=== PATIENT | female | born 1985 | race Caucasian/White ===

== ENCOUNTER 2020-03-10 10:54 | Outpatient (CLI) | payer OTHER, SELFPAY ==
--- NOTE | 2020-04-04 14:58 | PCAUD ---
Charges for the 03/10/2020 appointment were entered on 04/04/2020 due to an oversight at the time of the appointment. -Suzanna Govea, CCC-A
== END 2020-04-04 14:51 | disposition home or self-care (01) ==
PROVIDERS: PCP Physician Assistant; Visit Provider Physician Assistant
DX: H91.90 Unspecified hearing loss, unspecified ear (principal)
CPT/HCPCS: 92557; 92567

== ENCOUNTER 2020-04-03 09:26 | Outpatient (CLI) | payer OTHER, SELFPAY ==
--- NOTE | 2020-04-08 16:40 | WPDHOLTEREM ---
Holter/Event Monitor Holter/Event Monitor Date of procedure: 04/03/20 Procedure Type: 24 hour holter monitor Indications: Palpitations Conclusion: 1. 24 hour holter monitor on 04/03/20. 2. Underlying rhythm is sinus rhythm. HR range 43-133 bpm; average HR 69 bpm. 3. There are 166 premature supraventricular complexes and 7 supraventricular couplets. No supraventricular tachycardia. 4. There are 13 premature ventricular complexes and 1 ventricular couplet. No ventricular tachycardia. 5. No sinoatrial or atrioventricular blocks. No significant pauses greater than 2 seconds. 6. Patient reports symptoms of chest tightness/ache, flutter, palpitations which demonstrate sinus rhythm, HR range 55-101 bpm.
== END 2020-04-03 09:27 | disposition home or self-care (01) ==
LOC: ANHCARD 09:28
PROVIDERS: Family Provider Family Medicine; PCP Internal Medicine; Visit Provider Physician Assistant
DX: R00.2 Palpitations (principal)
CPT/HCPCS: 93225; 93226

== ENCOUNTER 2021-11-04 13:20 | Outpatient (RCR) | payer OTHER, SELFPAY ==
[2021-11-04 14:06] VITALS: BP 112/68; PULSE 89
== END 2021-12-09 09:21 | disposition home or self-care (01) ==
LOC: ANHOBOP 13:20
PROVIDERS: PCP Internal Medicine; Visit Provider Obstetrics & Gynecology
DX: O09.293 Supervision of pregnancy with other poor reproductive or obstetric history, third trimester (principal); Z3A.34 34 weeks gestation of pregnancy
CPT/HCPCS: 59025; 96372; J0702

== ENCOUNTER 2021-11-05 13:53 | Outpatient (RCR) | payer OTHER, SELFPAY ==
[2021-11-04] MEDS: BETAMETHASONE SOD PHOS/ACETATE 30 MG/5 ML VIAL 12 MG IM (14:10)
[2021-11-05] MEDS: BETAMETHASONE SOD PHOS/ACETATE 30 MG/5 ML VIAL 12 MG IM (13:58)
== END 2021-11-05 14:10 | disposition home or self-care (01) ==
LOC: ANHOBOP 13:53
PROVIDERS: PCP Internal Medicine; Visit Provider Obstetrics & Gynecology
DX: O36.8990 Maternal care for other specified fetal problems, unspecified trimester, not applicable or unspecified (principal); Z3A.00 Weeks of gestation of pregnancy not specified
CPT/HCPCS: 96372; J0702

== ENCOUNTER 2021-11-08 10:33 | Inpatient (IN) | payer OTHER, SELFPAY ==
[2021-11-08] VITALS (36 sets, daily range): BP systolic 106–154; BP diastolic 55–113; PULSE 68–104; RESP 18; TEMP 36.1–37.1; O2SAT 87–100; BMI 39.7
[2021-11-08 11:08] LABS: Basophils Percent Auto 0.3 % (0.2-1.2); Eosinophils Percent Auto 0.3 % (0-4.4); Hematocrit 37.2 % (37.0-47.0); Hemoglobin 12.3 g/dL (12.0-15.0); Immature Granulocyte Absolute 0.17 K/mm3 (0.00-0.031); Immature Granulocyte Percent A 1.4 % (0-0.5); Lymphocytes Percent Auto 12.5 % (18.3-44.2); Mean Corpuscular HGB Conc 33.1 g/dl (32-36); Mean Corpuscular Hemoglobin 28.2 pg (26-34); Mean Corpuscular Volume 85.3 fl (80-100); Monocytes Percent Auto 7.9 % (2.6-8.5); Neutrophils Absolute Auto 9.3 K/mm3 (1.3-6.7); Neutrophils Percent Auto 77.6 % (45.5-73.1); Nucleated Red Blood Cells Perc 0.2 % (0.0-0.2); Platelet Count Result 250 k/mm3 (150-375); Red Blood Count 4.36 M/mm3 (4.2-5.4); Red Cell Distribution Width 15.4 % (11.5-14.5)
[2021-11-08] MEDS: AMPICILLIN 2 GM/NS 100 ML 2 GM/100 ML BAG IVPB (11:08)
[2021-11-08] MEDS: LACTATED RINGERS 1,000 ML 125 ML IV CONT ×2 (11:08→11:38)
--- NOTE | 2021-11-08 11:10 | LDADM ---
This patient, Joann Devries, was admitted to Labor/Delivery/Recovery 106 on 11/08/21 at 10:51. Plans for labor, pain management and were discussed with patient. Patient/family oriented to hospital policies and general routines including ID bracelet, bed and alarms, visiting hours, pain management, procedures, bathroom and other care routines, personal items, smoking policy, room service/diet and guest tray routines, infant security routines, and visiting hours. Patient/Family are encouraged to report perceived risks to care and to ask questions if they do not understand what they are told or what they should do. See OBIX for further documentation.
--- NOTE | 2021-11-08 11:42 | WPDANESEPPF ---
Anes - Initial Pre Proc Eval Procedure: labor epidural Date/Time: 11/08/21 11:42 Surgeon: Dominic Velez MD Pre Op Diagnosis: labor pain Pre Op Diagnosis: Contractions/Leaking Patient Data Age: 35 Gender: F Height: Weight: Last Vital Signs Temp 36.1 C L 11/08/21 11:21 Pulse 104 H 11/08/21 11:41 BP 121/81 11/08/21 11:41 Pulse Ox 100 11/08/21 11:42 Allergies Allergy/AdvReac Type Severity Reaction Status Date / Time Sulfa (Sulfonamide Allergy Unknown unknown Verified 11/04/21 12:58 Antibiotics) sulfanilamide Allergy Unknown unknown Verified 11/04/21 12:58 Home Medications Medication Instructions Recorded Confirmed Type aspirin 81 mg tablet,delayed 81 mg PO DAILY 07/01/21 11/08/21 History release (Adult Aspirin Regimen) vit 168-iron 27 mg-folic 1 cap PO DAILY 07/01/21 11/08/21 History acid 800 mcg-omega3 235 mg capsule (One-A-Day -1) citalopram 20 mg tablet 20 mg PO DAILY #30 tabs 10/23/21 11/08/21 Rx valacyclovir 500 mg tablet 500 mg PO DAILY #90 tabs 11/05/21 11/08/21 Rx (Valtrex) Laboratory Tests 11/08/21 11/08/21 11/08/21 11:02 11:02 11:02 WBC 12.0 K/mm3 H K/mm3 (4.5-10.0) RBC 4.36 M/mm3 M/mm3 (4.2-5.4) Hgb 12.3 g/dL g/dL (12.0-15.0) Hct 37.2 % % (37.0-47.0) MCV 85.3 fl fl (80-100) MCH 28.2 pg pg (26-34) MCHC 33.1 g/dl g/dl (32-36) RDW 15.4 % H % (11.5-14.5) Plt Count 250 k/mm3 k/mm3 (150-375) MPV 10.0 fl fl (7.4-10.4) Immature Gran % (Auto) 1.4 % H % (0-0.5) Neut % (Auto) 77.6 % H % (45.5-73.1) Lymph % (Auto) 12.5 % L % (18.3-44.2) [place] % (Auto) 7.9 % % (2.6-8.5) Eos % (Auto) 0.3 % % (0-4.4) Baso % (Auto) 0.3 % % (0.2-1.2) Lymph # (Auto) 1.50 K/mm3 K/mm3 (0.9-3.2) [place] # (Auto) 1.0 K/mm3 H K/mm3 (0.1-0.6) Eos # (Auto) 0.0 K/mm3 K/mm3 (0-0.3) Baso # (Auto) 0.0 K/mm3 K/mm3 (0.0-0.1) Abs Immat Gran (auto) 0.17 K/mm3 H K/mm3 (0.00-0.031) Absolute Neuts (auto) 9.3 K/mm3 H K/mm3 (1.3-6.7) Absolute Nucleated RBC 0.0 K/mm3 K/mm3 (0.0-0.012) Nucleated RBC % 0.2 % % (0.0-0.2) RPR Pending Hep Bs Antigen Rubella IgG Antibody Pending 11/08/21 11:03 WBC RBC Hgb Hct MCV MCH MCHC RDW Plt Count MPV Immature Gran % (Auto) Neut % (Auto) Lymph % (Auto) [place] % (Auto) Eos % (Auto) Baso % (Auto) Lymph # (Auto) [place] # (Auto) Eos # (Auto) Baso # (Auto) Abs Immat Gran (auto) Absolute Neuts (auto) Absolute Nucleated RBC Nucleated RBC % RPR Hep Bs Antigen Pending Rubella IgG Antibody Patient hx anesthesia problems: none Family hx anesthesia problems: none Results Review: All pre-operative results and documents have been reviewed as part of the pre-operative evaluation. [facility] Past Medical History Medical History Anxiety Asthma Tuberculosis NON ACTIVE Surgical History Surgical History [place] teeth removed Family History Family History Father Family history of obesity Sibling Family history of mental disorder Mother Family history of osteoarthritis Grandparent Carcinoma of colon Family history of lung cancer Diabetes mellitus Social History Social History Smoking packs per day: 0.5 Smoking cigarettes per day: 10.0 Years smoked: 10 Smoking pack-years: 5.00 Smoking status: Former smoker Second hand tobacco sm
[2021-11-08] MEDS: OXYTOCIN 30 UNITS/NS 500 ML 30 UNITS/500 ML BAG 999 UNITS IV CONT (11:56)
[2021-11-08 12:07] LABS: Hepatitis B Surface Antigen Negative (Negative)
--- NOTE | 2021-11-08 12:18 | PM.IMHP ---
H&P: HPI History of Present Illness Date/Time: 11/08/21 12:18 Chief Complaint: Leakage of fluid and contractions Narrative: Patient is a 35-year-old now who presented to labor and delivery at 35 weeks gestation with complaints of contractions and leakage of fluid. LMP uncertain. She is dated by ultrasound with JT 12/13/2021. Patient reports onset of contractions last night. She reported leakage of clear fluid this morning at 9:00 a.m. and subsequently reports an increase in intensity and frequency of contractions. Patient reported bloody show. Reported good movement. Upon arrival to labor and delivery, patient was noted to be 5-6 cm dilated and grossly ruptured. She was admitted in labor. Review of Systems Review of Systems: All systems reviewed & are unremarkable except as noted in HPI and below Constitutional: Constitutional: Reports as per HPI and Reports no additional constitutional complaints Eyes: Eyes: Reports as per HPI and Reports no additional eye complaints ENT: Reports system reviewed and no additional complaints, except as documented and Reports as per HPI Cardiovascular: Cardiovascular: Reports as per HPI and Reports no additional cardiovascular complaints Respiratory: Respiratory: Reports as per HPI and Reports no additional respiratory complaints Gastrointestinal: Gastrointestinal: Reports as per HPI and Reports no additional gastrointestinal complaints Genitourinary: Genitourinary: Reports no additional female genitourinary complaints and Reports as per HPI Musculoskeletal: Musculoskeletal: Reports no additional musculoskeletal complaints and Reports as per HPI Integumentary/Breasts: Skin/Breast: Reports system reviewed and no additional complaints, except as docu and Reports as per HPI Neurologic: Reports system reviewed and no additional complaints, except as documented and Reports as per HPI Psychiatric: Psychiatric: Reports no additional psychiatric complaints and Reports as per HPI Endocrine: Endocrine: Reports no additional endocrine complaints and Reports as per HPI Hematologic/Lymphatic: Hematologic/Lymphatic: Reports no additional hematologic/lymphatic complaints and Reports as per HPI Allergic/Immunologic: Allergic/Immunologic: Reports no additional allergic/immunologic complaints and Reports as per HPI PMFSH Past Medical History Medical History Anxiety Asthma Tuberculosis NON ACTIVE Surgical History Surgical History [place] teeth removed Family History Family History Father Family history of obesity Sibling Family history of mental disorder Mother Family history of osteoarthritis Grandparent Carcinoma of colon Family history of lung cancer Diabetes mellitus Social History Social History Smoking packs per day: 0.5 Smoking cigarettes per day: 10.0 Years smoked: 10 Smoking pack-years: 5.00 Smoking status: Former smoker Second hand tobacco smoke exposure: No Smoking end date: 03/14/14 Alcohol intake: never Substance use: never Spiritual care concerns: No Meds Home Medications and Allergies Home Medications Medication Instructions Recorded Confirmed Type aspirin 81 mg tablet,delayed 81 mg PO DAILY 07/01/21 11/08/21 History release (Adult Aspirin Regimen) vit 168-iron 27 mg-folic 1 cap PO DAILY 07/01/21 11/08/21 History acid 800 mcg-omega3 235 mg capsule (One-A-Day -1) citalopram 20 mg tablet 20 mg PO DAILY #30 tabs 10/23/21 11/08/21 Rx valacyclovir 500 mg tablet 500 mg PO DAILY #90 tabs 11/05/21 11/08/21 Rx (Valtrex) Allergies Allergy/AdvReac Type Severity Reaction Status Date / Time Sulfa (Sulfonamide Allergy Unknown unknown Verified 11/04/21 12:58 Antibiotics) sulfa
[2021-11-08] MEDS: OXYTOCIN 30 UNITS/NS 500 ML 30 UNITS/500 ML BAG 125 UNITS IV CONT (12:27)
--- NOTE | 2021-11-08 12:28 | WPDHPUPDATE1 ---
History and Physical Update Update Date/Time: 11/08/21 12:28 History and Physical has been reviewed, including an updated exam of the patient. There are NO changes in the patient's condition. Risks, benefits, and alternatives have been discussed and questions answered. Patient agrees to proceed with procedure.
--- NOTE | 2021-11-08 12:29 | P.PCNOB_ITS ---
OB - Delivery Note Procedure Delivery date: 11/08/21 Procedure: Patient is a 35-year-old now who presented to labor and delivery this morning at 35 weeks gestation with complaints of contractions and leakage of fluid. Upon presentation to labor and delivery, patient was noted to be in active labor and grossly ruptured. Patient was approximately 5-6 cm dilated at time of presentation. Patient was admitted to labor and delivery. Antibiotics were started for GBS prophylaxis. Patient made quick progressive cervical change. She was uncomfortable and requested an epidural for pain management, which was placed without difficulty. Patient was noted to be fully dilated at 11:41 a.m. Patient was prepped and draped for delivery. At 11:53 a.m., patient delivered infant head atraumatically and without difficulty in PETROS presentation. Occiput restituted to maternal left side. With subsequent push, the 's neck, shoulders, and rest of body delivered without difficulty. Terminal meconium was noted. Infant was crying spontaneously. 's nose and mouth were suctioned with bulb suction. Infant was placed on maternal abdomen where care was assumed by awaiting nursing staff. Delayed cord clamping was performed for approximately 60 seconds. voided spontaneously. The cord was clamped and cut. A segment of cord was collected for cord gases. Cord blood was collected. The placenta delivered spontaneously and intact. Uterine fundus was noted to be firm with massage. On inspection, a first-degree perineal laceration was noted. Approximately 10 cc 1% lidocaine was administered for local analgesia. This laceration was repaired with 3-0 Vicryl in usual fashion.? Excellent hemostasis was noted. Straight catheterization was performed with return of approximately 50 cc concentrated urine. Estimated blood loss for entire delivery was 250 cc. was a live born male infant, Apgars 7 and 8, weighing 6 lbs. 8 oz. Both mother and baby doing well at end of delivery. Events: Premature Rupture of Membranes and Other ( labor ) Delivery monitor: External FHT and External Uterine Route of delivery: Laceration Description: Perineal - 1st Degree Delivery repair: vicryl (3-0 ) Specimen: Yes (placenta and cord, cord blood, and cord gases) Quantitative Blood Loss (ml): 250 Anesthesia type: Epidural Disposition: Floor Complications: No immediate complications [place] Baby Date of : 11/08/21 Time of : 11:53 Weeks of gestation at delivery: 35 gender: Male Weight (pounds): 6 Weight (ounces): 8 presentation: vertex position: Left Occiput Anterior Placenta delivery description: Spontaneous Cord Vessel Description: 3 Vessels and Delayed Cord Clamping (x60s) score one minute: 7 score five minutes: 8 AMG Delivery Billing Delivery Delivery: Delivery Charge
[2021-11-08 12:38] LABS: Rubella IgG Antibody 25.4 IU/ML
[2021-11-08] MEDS: IBUPROFEN 600 MG TABLET PO (14:41)
[2021-11-08] MEDS: BENZOCAINE 20% AER SPR (*SP) 56 GM CAN 1 SPRAY TOPICAL (14:42)
[2021-11-08] MEDS: WITCH HAZEL 40 PADS 1 PAD TOPICAL (14:42)
[2021-11-08] MEDS: CITALOPRAM HYDROBROMIDE 20 MG TABLET PO (21:31)
[2021-11-09 02:55] VITALS: BP 109/64; PULSE 75; RESP 16; TEMP 36.6; O2SAT 96
[2021-11-09 06:42] LABS: Hematocrit 32.5 % (37.0-47.0); Hemoglobin 10.5 g/dL (12.0-15.0)
--- NOTE | 2021-11-09 06:43 | PC.NURSE ---
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 I took it for two whole days...and I have a ninety day supply. We discussed she needs to use excellent handwashing after using the restroom and if she notices an outbreak she need to call her provider and take her Valacyclovir. We also discussed if baby gets the virus how the HSV will present itself in baby. Neurological symptoms such as rhythmic shaking, siezures. Baby may also be lethargic and not wanting to eat. Baby may or may not have a fever. If any of these symptoms appear mother should seek medical attention and tell the DrBrenda of mother's HSV status. Mother states understanding, and was nodding her head in agreement of the symptoms and course mother needs to take if these symptoms are found in baby. Mother also understands if baby just isn't acting right she should call baby's
[2021-11-09 07:00] VITALS: BP 112/76; PULSE 67; RESP 18; TEMP 36.3; O2SAT 99
[2021-11-09 07:33] LABS: Rapid Plasma Reagin Non-Reactive (NonReactive)
--- NOTE | 2021-11-09 08:48 | PM.OBPNVD ---
OB - PN: Subj Subjective Date/time seen: 11/09/21 08:48 Patient comments: pain well controlled, tolerating diet and other (Decreasing lochia.) baby status: doing well and nursing well OB - PN: Obj Data Labs CBC & Chem 7: 11/09/21 04:34 Labs: Laboratory Results - last 24 hr 11/08/21 11/08/21 11/08/21 11:02 11:02 11:02 WBC 12.0 H RBC 4.36 Hgb 12.3 Hct 37.2 MCV 85.3 MCH 28.2 MCHC 33.1 RDW 15.4 H Plt Count 250 MPV 10.0 Immature Gran % (Auto) 1.4 H Neut % (Auto) 77.6 H Lymph % (Auto) 12.5 L [place] % (Auto) 7.9 Eos % (Auto) 0.3 Baso % (Auto) 0.3 Lymph # (Auto) 1.50 [place] # (Auto) 1.0 H Eos # (Auto) 0.0 Baso # (Auto) 0.0 Abs Immat Gran (auto) 0.17 H Absolute Neuts (auto) 9.3 H Absolute Nucleated RBC 0.0 Nucleated RBC % 0.2 RPR Non-reactive Hep Bs Antigen Rubella IgG Antibody 25.4 Blood Type Antibody Screen 11/08/21 11/08/21 11/09/21 11:02 11:03 04:34 WBC RBC Hgb 10.5 L Hct 32.5 L MCV MCH MCHC RDW Plt Count MPV Immature Gran % (Auto) Neut % (Auto) Lymph % (Auto) [place] % (Auto) Eos % (Auto) Baso % (Auto) Lymph # (Auto) [place] # (Auto) Eos # (Auto) Baso # (Auto) Abs Immat Gran (auto) Absolute Neuts (auto) Absolute Nucleated RBC Nucleated RBC % RPR Hep Bs Antigen Negative Rubella IgG Antibody Blood Type O Positive Antibody Screen Negative OB - PN A/P Plan day: 1 Plan: routine care Comments: Patient doing well. Routine care. Time Spent With Patient Time: Total time spent is greater than 50% in coordination of care (as documented) at patient's floor/unit and/or counseling patient: Exam Const: General: comfortable and no acute distress Resp: Effort & Inspection: normal respiratory effort GI: Inspection: normal to inspection Other: Fundus firm below umbilicus nontender : External Female Exam: normal external appearance Back/Spine/Pelvis: Other: perineal healing no swelling Psych: Affect: normal affect Other: Abd: fundus firm below umbilicus, nontender Perineum: healing Ext: nontender
--- NOTE | 2021-11-09 12:15 | PC.NURSE ---
Care Coordination Susan here to examine pt. [id number] Fax of lab work to [facility].
--- NOTE | 2021-11-09 14:52 | WPDANLDPN2 ---
Anes-Prog Note L&D Date/Time: 11/09/21 14:52 Comfortable throughout: labor and delivery Neuraxial method: epidural Epidural/Spinal procedure site: clean & non-tender Neuro status: Neuro function grossly intact. Cardiovascular status: normal Respiratory status: normal Airway patency: baseline Mental status: baseline Post-Op hydration status: normal Vital Signs: Last Vital Signs Temp 97.4 F L 11/09/21 07:00 Pulse 67 11/09/21 07:00 Resp 18 11/09/21 07:00 BP 112/76 11/09/21 07:00 Pulse Ox 99 11/09/21 07:00 O2 Del Method Room Air 11/09/21 07:00 Pain score (VAS): 0/10 Post-procedural complaints: none Patient feedback: Patient satisfied with anesthetic care.
[2021-11-09 19:20] VITALS: BP 130/67; PULSE 89; RESP 18; TEMP 36.4
[2021-11-09] MEDS: CITALOPRAM HYDROBROMIDE 20 MG TABLET PO (20:34)
[2021-11-10 07:50] VITALS: BP 136/76; PULSE 82; RESP 18; TEMP 36.4; O2SAT 99
[2021-11-10] MEDS: MULTIVIT/MIN/PREN/FOL AC/IRON TABLET 1 TAB PO (08:11)
[2021-11-10] MEDS: WITCH HAZEL 40 PADS 1 PAD TOPICAL (08:11)
--- NOTE | 2021-11-10 08:36 | PM.OBPNVD ---
OB - PN: Subj Subjective Date/time seen: 11/10/21 08:36 Patient comments: pain well controlled, tolerating diet and other (Decreasing lochia.) baby status: doing well and nursing well OB - PN: Obj Data Labs CBC & Chem 7: 11/09/21 04:34 OB - PN A/P Plan day: 2 Plan: discharge home and other Comments: Patient doing well. Follow up 4-6 weeks. Discharge instructions provided. Time Spent With Patient Time: Total time spent is greater than 50% in coordination of care (as documented) at patient's floor/unit and/or counseling patient: Time with patient: less than 15 minutes Exam Psych: Affect: normal affect Other: Abd: fundus firm below umbilicus, nontender Ext: nontender
--- NOTE | 2021-11-10 08:52 | P.DS_ITS ---
DS: Admitting Diagnosis Discharge Date 11/10/3032 Admitting Diagnosis labor DS: Discharge Diagnosis Discharge Diagnosis (1) delivery: Code(s): O60.10X0 - labor with delivery, unspecified trimester, not applicable or unspecified Status: Acute OB - DS: Summary Hospital Course Hospital Course: she was admitted in active labor. She had an uncomplicated vaginal delivery. She did well . She had adequate pain control, tolerated regular diet and was ambulating well. She was discharged to home/[facility]. Discharge precautions discussed. OB Procedures : Ultrasound OB Procedures Intrapartum: Spontaneous Vag Delivery OB Procedures: : None Peripartum Data Infant Delivery Method: Natural Vaginal Laceration Description: Perineal - 1st Degree complications: none Time Spent with Patient Time attestation: Total time spent providing and/or coordinating discharge services: Exam Const: General: comfortable and no acute distress Eyes: General: appearance normal, both eyes and all related structures Resp: Effort & Inspection: normal respiratory effort GI: Inspection: normal to inspection Other: fundus firm below umbilicus : External Female Exam: normal external appearance Psych: Appearance: grossly normal DS: Data Data Completed and Pending Pending studies at discharge: Pending at discharge 11/08/21 11:56 Surgical [PTH] Routine Discharge Plan Discharge Attending physician on discharge: Dominic Velez Consulting providers: Nadja Trujillo Discharging Clinician: Dominic Velez Anticipated Discharge Date/Time: 11/10/21 08:50 Patient Disposition: Home, Self-Care Activity: may shower and pelvic rest Diet: regular Discharge Instructions: Pelvic rest for 4-6 weeks. May take over the counter Ibuprofen or Tylenol for pain. Call if saturating more than a pad an hour, leg redness, pain and swelling, temperature>100.4. No strenuous activity. Patient Instructions: Antibiotic Form Stand Alone Forms: General Discharge Information Follow-up/Referrals: Dominic Velez MD [Physician] - Keep Reg. Scheduled Appt. Discharge Medications: Continued One-A-Day -1 27 mg iron- 800 mcg-235 mg capsule 1 cap PO DAILY citalopram 20 mg tablet 20 mg PO DAILY Qty: 30 1RF Discontinued aspirin [Adult Aspirin Regimen] 81 mg tablet,delayed release (DR/EC) 81 mg PO DAILY valacyclovir [Valtrex] 500 mg tablet 500 mg PO DAILY Qty: 90 0RF Date of admission: 11/08/21 10:51 Primary Care Provider: Odell Maddox Admitting Provider: Dominic Velez Attending physician on admission: Dominic Velez Condition: Stable
--- NOTE | 2021-11-10 10:06 | PC.NURSE ---
0914 - Mother verbalizes she is able to independently latch . She denies any nipple discomfort and is responsively . Mother states infant does little sucks . Reviewed rocking motion and feeding a 35 EGA infant. Mother states she is supplementing and consistently pumping her breast. Mother confirmed she was pumping 8 times in 24 hours without pain. Mother declines any additional assistance/education at this time. Mother is encouraged to call for assistance if her infant doesn?t latch, unable to wake to breastfeed, or if there is discomfort with latching. Mother voiced understanding of information shared and mom and baby guide reviewed for additional resource information. Reported to the primary RN.
[2021-11-11 09:57] VITALS: BP 113/75; PULSE 92; RESP 16; TEMP 37; O2SAT 98
== END 2021-11-10 18:00 | disposition home or self-care (01) | DRG 805 ==
LOC: ANHLDR 10:51 → ANHOB2 14:51
PROVIDERS: Admitting Provider Student in an Organized Health Care Education/Training Program; PCP Internal Medicine; Visit Provider Obstetrics & Gynecology
DX: O42.913 Preterm premature rupture of membranes, unspecified as to length of time between rupture and onset of labor, third trimester (principal); O60.14X0 Preterm labor third trimester with preterm delivery third trimester, not applicable or unspecified; Z37.0 Single live birth; Z3A.35 35 weeks gestation of pregnancy; O62.3 Precipitate labor; O70.0 First degree perineal laceration during delivery
CPT/HCPCS: 36415; 85014; 85018; 85025; 86592; 86762; 86850; 86900; 86901; 87340; 88307; A9270; J0290; J2590; J2795; J7120

== ENCOUNTER 2023-01-12 18:57 | Emergency (ER) | payer OTHER, SELFPAY ==
--- NOTE | 2023-01-12 19:05 | ED.URI ---
HPI - URI/Sore Throat General Chief Complaint: Upper Respiratory Infection Stated Complaint: Sore Throat Time Seen by Provider: 01/12/23 19:05 Source: patient Mode of arrival: ambulatory Limitations: no limitations History of Present Illness HPI Narrative: Natty is a 37-year-old female patient presenting to the clinic today with complaints of a sore throat, cough, sinus pressure, ear pain, congestion off and on over the last 3 weeks. She reports no known fever but has had chills. No known exposure to anyone with COVID, flu, or strep. MD elicited complaint: sore throat and nasal congestion Related Data Allergies Allergy/AdvReac Type Severity Reaction Status Date / Time Sulfa (Sulfonamide Allergy Unknown unknown Verified 01/12/23 19:06 Antibiotics) sulfanilamide Allergy Unknown unknown Verified 01/12/23 19:06 Review of Systems Review of Systems: Pertinent positives per HPI. Patient denies any fever, rash,visual changes, dizziness, shortness of breath, chest pain, palpitations, nausea, vomiting, diarrhea, constipation, abdominal pain, or any urinary issues. PMFSH Past Medical History Medical History Anxiety Asthma Tuberculosis NON ACTIVE Surgical History Surgical History [place] teeth removed Family History Family History Father Family history of obesity Sibling Family history of mental disorder Mother Family history of osteoarthritis Grandparent Carcinoma of colon Family history of lung cancer Diabetes mellitus Social History Social History Smoking packs per day: 0.5 Smoking cigarettes per day: 10.0 Years smoked: 10 Smoking pack-years: 5.00 Smoking status: Former smoker Second hand tobacco smoke exposure: No Smoking end date: 03/14/14 Alcohol intake: never Substance use: never Lack of Transportation: No Lack of Food: Never True Current Housing: I Have Housing Concerned About Future Housing: No Difficulty Paying Gas/Electric Bills: No Difficulty Paying for Meds: No Currently Unemployed: No Education: Trade/Vocational Certificate Difficulty w/ Childcare or Family Care: No Spiritual care concerns: No Comments At the time of my signature, I reviewed and agree with the nursing past medical, surgical, social, and family history. There is no relevant family history pertinent to the patient complaint. Exam Narrative: General: Well-developed, well nourished, in no apparent distress Head: Normocephalic, atraumatic Eyes: Pupils equally round and reactive to light bilaterally, EOM intact, sclera and conjunctive clear, no discharge, lids normal Ears: TMs intact and congested, ear canals clear, no drainage, grossly hearing normal. Nose: Nares patent, clear nasal discharge, severe inflammation, maxillary sinus tenderness. Mouth: Oral pharynx red with mild tonsillar enlargement without lesions or masses, good dentition, MMM. Neck: Supple, trachea midline, enlargement of anterior cervical nodes, no thyroid masses or goiter palpable. Cardio: Regular rate and rhythm, s1 and s2 normal, no murmur appreciated. Resp: Clear to auscultation bilaterally, no rhonchi, rales, wheezing or rubs Course Course Emergency Course: Portions of this record may have been created with voice recognition software. Level of Care: Express Care Visit Vital Signs Vital signs: Vital signs reviewed MDM - URI/Sore Throat MDM Narrative Medical decision making narrative: At the time of visit patient is resting comfortably on the exam table. Strep test was positive in the clinic today. Supportive measures were discussed with the patient and she voiced understanding. Prescription for prednisone and Augmentin was sent to the pharmacy. [place]
[2023-01-12 19:09] VITALS: BP 147/79; PULSE 80; RESP 18; TEMP 37; O2SAT 100
== END 2023-01-12 19:18 | disposition home or self-care (01) ==
PROVIDERS: Emergency Provider Nurse Practitioner Family; PCP Internal Medicine
DX: J02.0 Streptococcal pharyngitis (principal); J01.90 Acute sinusitis, unspecified; Z87.891 Personal history of nicotine dependence; J45.909 Unspecified asthma, uncomplicated
CPT/HCPCS: 87880; 99213; G0463

== ENCOUNTER 2023-01-22 19:10 | Emergency (ER) | payer OTHER, SELFPAY ==
[2023-01-22 19:17] VITALS: BP 150/85; PULSE 98; RESP 18; TEMP 36.9; O2SAT 100
--- NOTE | 2023-01-22 19:47 | ED.URI ---
HPI - URI/Sore Throat General Chief Complaint: Upper Respiratory Infection Stated Complaint: Sore Throat Time Seen by Provider: 01/22/23 19:40 Source: patient and RN notes reviewed Mode of arrival: ambulatory Limitations: no limitations History of Present Illness HPI Narrative: Patient presents today complaining of sore throat, headache, chills, body aches. Patient was seen 10 days ago here at [facility] and diagnosed with strep throat and treated with 10 days of Augmentin, which she finished tonight. States her symptoms improved for the 1st couple of days, then worsened again. She has been taking DayQuil with little relief. Related Data Allergies Allergy/AdvReac Type Severity Reaction Status Date / Time Sulfa (Sulfonamide Allergy Unknown unknown Verified 01/22/23 19:13 Antibiotics) sulfanilamide Allergy Unknown unknown Verified 01/22/23 19:13 Review of Systems Review of Systems: CONSTITUTIONAL: Denies fever.+ body aches, chills, sweats EYES: Denies visual changes, redness, or discharge. ENT: Denies rhinorrhea, congestion, or otalgia.+ sore throat CARDIOVASCULAR: Denies chest pain, palpitations, or edema. RESPIRATORY: Denies cough or dyspnea. GASTROINTESTINAL: Denies abdominal pain, nausea, vomiting, or diarrhea. GENITOURINARY: Denies dysuria or hematuria. SKIN: Denies rash, itching, or wounds. MUSCULOSKELETAL: Denies back pain, joint pain, or myalgia. NEUROLOGIC: Denies numbness, tingling, or weakness.+ headache PSYCH: Denies depression or anxiety. PMFSH Past Medical History Medical History Anxiety Asthma Tuberculosis NON ACTIVE Surgical History Surgical History [place] teeth removed Family History Family History Father Family history of obesity Sibling Family history of mental disorder Mother Family history of osteoarthritis Grandparent Carcinoma of colon Family history of lung cancer Diabetes mellitus Social History Social History Smoking packs per day: 0.5 Smoking cigarettes per day: 10.0 Years smoked: 10 Smoking pack-years: 5.00 Smoking status: Former smoker Second hand tobacco smoke exposure: No Smoking end date: 03/14/14 Alcohol intake: never Substance use: never Lack of Transportation: No Lack of Food: Never True Current Housing: I Have Housing Concerned About Future Housing: No Difficulty Paying Gas/Electric Bills: No Difficulty Paying for Meds: No Currently Unemployed: No Education: Trade/Vocational Certificate Difficulty w/ Childcare or Family Care: No Spiritual care concerns: No Comments At time of signature, I have reviewed and agree with nursing past medical, surgical, social and family history unless otherwise noted. Please see nursing chart for further information. There is no relevant family history pertinent to the presenting complaint Exam Narrative: GENERAL: Well-appearing, well-nourished, and in no acute distress. HEAD: Normocephalic, atraumatic. EYES: EOMI. No redness or drainage. Conjunctivae normal. ENT: Mucous membranes pink and moist. Nares clear. No rhinorrhea. TMs normal bilaterally. Throat erythematous in the posterior oropharynx. Patient has no erythema or edema the tonsils. No exudate. Uvula midline. NECK: Normal AROM. Supple. No lymphadenopathy. CHEST: No respiratory distress. Clear to auscultation. HEART: Regular rate and rhythm. No murmur appreciated. EXTREMITIES: Normal range of motion. No edema. SKIN: Warm, dry, no rash. Capillary refill normal. Normal skin turgor. NEURO: No focal deficits. Alert and oriented x3. Gait steady. PSYCH: Normal affect. No signs of depression or anxiety. Course Course Level of Care: Express Care Visit Vital Signs Amirah
== END 2023-01-22 20:09 | disposition home or self-care (01) ==
PROVIDERS: Emergency Provider Nurse Practitioner; PCP Internal Medicine
DX: J02.9 Acute pharyngitis, unspecified (principal); Z87.891 Personal history of nicotine dependence
CPT/HCPCS: 87081; 87880; 99213; G0463

== ENCOUNTER 2024-09-07 10:20 | Outpatient (CLI) | payer OTHER, SELFPAY ==
--- NOTE | ~2024-09-07 | US_ITS ---
EXAM: US pelvic complete w TV - 09/07/2024 10:23 CDT History: 38 years old Female with R10.2 - Pelvic and perineal pain Comparison: None available. Technique Real time scanning of the pelvis was performed. Findings The uterus measures 6.4 x 3.8 x 4.7 cm. IUD seen and appears to be good position. Endometrium is gabriel sly unremarkable. The endometrial stripe measures 5 mm. The right ovary measures 3.2 x 1.6 x 2.0 cm. The left ovary measures 2.0 x 1.4 x 1.6 cm. Both ovaries appear grossly unremarkable and have intact blood flow. There is no significant fluid in the cul-de-sac. Impression: IUD seen. Unremarkable uterus and ovaries. Reviewed, dictated and finalized at location A. Impression: IUD seen. Unremarkable uterus and ovaries.
== END 2024-09-07 10:21 | disposition home or self-care (01) ==
PROVIDERS: PCP Student in an Organized Health Care Education/Training Program; Visit Provider Nurse Practitioner Obstetrics & Gynecology
DX: R10.2 Pelvic and perineal pain (principal); Z97.5 Presence of (intrauterine) contraceptive device
CPT/HCPCS: 76830; 76856

== ENCOUNTER 2024-09-13 18:55 | Emergency (ER) | payer OTHER, SELFPAY ==
--- NOTE | ~2024-09-13 | CT_ITS ---
CLINICAL INDICATION: Right lower quadrant pain COMPARISON: None. Reference is made to a ultrasound examination of the pelvis performed 09/07/2024. TECHNIQUE: Multiple contiguous axial images of the abdomen and pelvis were performed following the ad ministration of with 100 mL Omnipaque-350 intravenous contrast The dose-length product (DLP) was 770.68 mGy-cm. Automated exposure control and iterative reconstruction technique were employed. FINDINGS/OBSERVATIONS: Visualized lower thorax: The bilateral lung bases are clear. The heart is of normal size, without pericardial effusion. Small hiatal hernia is present. Liver: Focal fatty infiltration within segment 3 of the liver. The remainder of the liver otherwise demonstrates homogeneous enhancement and is enlarged measuring 2 1 cm in longitudinal dimension. Gallbladder and biliary system: The gallbladder is only minimally distended, and otherwise unremarkable. Pancreas: The pancreas enhances homogeneously without ductal dilatation. Spleen: The spleen enhances homogeneously and is not enlarged. Kidneys: The bilateral kidneys enhance symmetrically without hydronephrosis or renal calculi. Adrenal glands: Unremarkable. Gastrointestinal tract: Fecal stasis within the colon. Appendix: The air-filled appendix is of normal caliber (axial series, images 122 through 138). Vasculature: Unremarkable. Lymph nodes: No pathologically enlarged or morphologically suspicious lymph nodes within the retroperitoneum or at the root of the mesentery. Pelvic structures: The bladder is decompressed, limiting its evaluation. The uterus is retroverted and retroflexed. The intrauterine device is present with the horizontal arms in appropriate position. The vertical stem extends anteriorly and caudally, rather than along the endometrial canal in the bod y of the uterus, possibly the source of patient's discomfort. No contrast extravasation is identified at this level of the uterus to think that there is penetration of the anterior uterine wall. Body wall and musculoskeletal: Small fat-containing umbilical hernia. No significant degenerative disease within the lower thoracic or lumbosacral spine. IMPRESSION: Normal appendix. Abnormal orientation of the vertical stem of the patient's intrauterine device, as detailed above, po ssibly the source of patient's discomfort. These findings (as they are a change from the preliminary report provided at the time of examination) were given to the emergency department (Dr Leavitt) in order to contact the patient, on 09/14/2024. Reviewed, dictated and finalized at location A. IMPRESSION: Normal appendix. Abnormal orientation of the vertical stem of the patient's intrauterine device, as detailed above, possibly the source of patient's discomfort. These findings (as they are a change from the preliminary report provided at e time of examination) were given to the emergency department (Dr Leavitt) in ord er to contact the patient, on 09/14/2024.
--- OUTSIDE RECORDS SUMMARY | 2024-09-13 18:57 | XMS_ITS | Clinical Summary ---
Author Organization [facility] Address [address] [facility] [address] [place] [address] Care Team Providers Care Field Sales Manager Name Role Phone Odell Maddox DO Primary Care Provider [phone] Source Comments [facility],non-owned Affiliates and Associated Physician Practices is amultiple site organization consisting of ambulatory clinics and hospital sitesin [place], [place], [place] and [place]. This disclosure is being madepursuant to the Care Everywhere program and may not contain all information available regarding this patient. Last updated 17.[facility] Allergies Active Allergy Reactions Criticality Noted Date Comments Sulfa Drugs Urticaria Medium 08/05/2021 Medications * Be aware that medications may not be up to date on this document. Alwaysverify current medications with the patient. Vit-Fe Fumarate-FA ( VITAMIN) 28-0.8 MG tablet Take 1 tablet by mouth once daily Active Family History Medical History Relation Name Comments Hypertension Brother Diabetes - Type 2 Mother Hypertension Mother Hypertension Sister Relation Name Status Comments Brother Alive Father Mother Alive Sister Alive Social History Tobacco Use Types Packs/Day Years Used Date Smoking Tobacco: Former Cigarettes Q uit: 2015 Smokeless Tobacco: Never Alcohol Use Standard Drinks/Week Comments Not Currently 0 (1 standard drink = 0.6 oz pur e alcohol) Comments No Sex and Gender Information Value Date Recorded Sex Assigned at Not on file Legal Sex Female 10:52 AM CDT Gender Identity Not on file Sexual Orientation Not on file Last Filed Vital Signs Vital Sign Reading Time Taken Comments Blood Pressure 107/61 08/05/2021 1:54 PM CDT Pulse 97 08/05/2021 1:54 PM CDT Temperature - - Respiratory Rate - - Oxygen Saturation - - Inhaled Oxygen Concentration - - Weight 95.7 kg (211 lb) 08/05/2021 1:54 PM CDT Height 165.1 cm (5' 5) 08/05/2021 1:54 PM CDT Body Mass Index 35.11 08/05/2021 1:54 PM CDT Plan of Treatment Health Maintenance Due Date Last Done Comments LIPID TESTING 1983 MAMMOGRAM 1983 HEPATITIS C SCREENING 12/15/2001 DTAP/TDAP/TD VACCINES (1 - Tdap) 12/19/2002 HEPATITIS B VACCINE (1 of 3 - 19+ 3-dose series) 12/19/2002 COVID-19 VACCINE (3 - 2023-2 5 season) 2023 05/30/2020, 05/11/2020 DEPRESSION SCREENING 03/14/2024 PAP SMEAR 04/27/2024 04/27/2021, 04/27/2021 INFLUENZA VACCINE (Season Ended) 2024 ZOSTER VACCINE (1 of 2) 12/19/2033 HIV SCREENING Completed 06/03/2021 HIB VACCINE Aged Out No longer eligi ble based on patient's age to complete this topic HPV VACCINE Aged Out No longer eligi ble based on patient's age to complete this topic MENINGOCOCCAL (Group B) VACCINE SHARED DECISION-MAKING Aged Out No longer eligible based on patient's age to complete this topic MENINGOCOCCAL GROUPS A/C/Y/W VACCINE Aged Out No longer eligible b ased on patient's age to complete this topic PNEUMOCOCCAL VACCINE Aged Out No long er eligible based on patient's age to complete this topic Insurance CIGNA CIGNA CIGNA Care Teams Field Sales Manager Relationship Specialty Start Date End Date Odell Maddox DO [address] [facility] [address] [place] [address] PCP - General 11/12/21
--- OUTSIDE RECORDS SUMMARY | 2024-09-13 18:57 | XMS_ITS | Encounter Summary ---
Author Organization [facility] Address [address] [place] [address] Care Team Providers Care Machine Plug Shaper Name Role Phone David Traore DO Primary Care Provider + Reason for Visit * Reason Onset Date Comments Problem 09/12/2024 Rt mid quadrant pain Encounter Details Date Type Department Care Team (Late st Contact Info) Description 09/12/2024 Telephone [facility] Family & Internal Medicine [facility] [address] [place] [address] David Traore DO [address] [place] [address] Problem (Rt mid quadrant pain ) Social History Tobacco Use Types Packs/Day Years Used Date Smoking Tobacco: Former Cigarettes 1 2017 Passive Smoke Exposure: Never Smokeless Tobacco: Never Alcohol Use Standard Drinks/Week Comments Not Currently 0 (1 standard drink = 0.6 oz pur e alcohol) PHQ-2 Answer Date Recorded Patient Health Questionnaire-2 Score 3 08/26/2023 Comments No Sex and Gender Information Value Date Recorded Sex Assigned at Not on file Legal Sex Female 12:21 PM CDT Gender Identity Not on file Sexual Orientation Not on file Occupation Industry Job Start Date Job End Date Not on file Not on file Not on file Not on file documented as of this encounter Progress Notes * Columba Mckeon MA - 09/12/2024 1:35 PM CDT Patient notified would recommend going to the ER to have address quickly and to get the necessary imaging now. Pt understands. La,rma * David Traore DO - 09/12/2024 12:04 PM CDT This would require evaluation to assess if imaging is necessary. Appendicitis is a potentially emergent situation, so would have to recommend evaluation today then. Unfortunately, we do not have any openings as of this writing today. * Columba Mckeon MA - 09/12/2024 11:26 AM CDT Patient stated last 2-3 weeks has noticed on rt side mid quadrant pain off and on. Will fill like aquick stabbing pain then go away. No fever that she is aware of. Had pelvic ultrasound ordered by paint stock clerk and no ovarian cyst were noted. Pt concerned if it is her appendix? Would like to get imaging done if possible. documented in this encounter Plan of Treatment Upcoming Encounters Date Type Department Care Team (Late st Contact Info) Description 10/19/2024 7:20 AM CDT Office Visit [facility] Family & Internal Medicine - [place] [address] [place] [address] David Traore DO [address] [place] [id number] documented as of this encounter Visit Diagnoses Not on filedocumented in this encounter Additional Health Concerns Assessment Noted Time PHQ-9 Depression Total Score: 17 024 2:15 PM CDT documented as of this encounter Care Teams Machine Plug Shaper Relationship Specialty Start Date End Date David Traore DO [facility] [place] [address] PCP - General FAMILY PRACTICE 08/26/23 documented as of this encounter
--- OUTSIDE RECORDS SUMMARY | 2024-09-13 18:57 | XMS_ITS | Patient Health Record ---
Author Organization [facility] [employer] [facility] Address [address] [place] [address] Care Team Providers Care Home Health Clinician Name Role Phone David Traore DO Primary Care Provider Taisha Mccall Unavailable [phone] MENA WHITE Unavailable Unavailable Guillermo Rocha Unavailable [phone] Diego Myers Unavailable [phone] Allergies Allergen (clinical drug ingredient) Drug/Non Drug Allergy documented on EMR Reaction Allergy Type Onset Date Status Substance with sulfonamide structure and antibacterial mechanism of action (substance) SULFA (SULFONAMIDE ANTIBIOTICS) (uncoded) Unknown Allergy Active Sulfanilamide Unknown Drug Allergy Act carole Results Component Value Reference Range Notes UDT Reviewed date:01/20/2024 04:21:49 PM Interpretation: Performing Lab: Notes/Report: THC p 0 - 50 ng/ml Cocaine n 0 - 300 ng/ml Amphetamine n 0 - 1000 ng/ml Buprenorphine (BUP) n 0 - 10 ng/ml Secobarbital (Bar) n 0 - 300 ng/ml Oxazepam (BZO) n 0 - 300 ng/ml 3-pxtcsjqrwp-3,6-kdeesiwt-2,3-diphenylpyrrolidine (JT P) n 0 - 300 ng/ml Methamphetamine (MET) n 0 - 1000 ng/ml Methylenedioxymethamphetamine (MDMA) n 0 - 500 ng/ml Morphine (MOP 300/[id number]) n 0 - 300 ng/ml Methadone (MTD) n 0 - 300 ng/ml Phencyclidine (PCP) n 0 - 25 ng/ml Nortriptyline (TCA) n 0 - 1000 ng/ml Oxycodone n 0 - 300 ng/ml x n 0 - 300 ng/ml Reason For Referral No Information Medications Medication SIG (Take, Route, Frequency, Duration) Notes Start Date End Date Status Metoprolol Succinate ER 25 MG Oral Not-Taking Atomoxetine HCl 40 MG 1 capsule in the morning Orally Once a day; Duration: 90 days Active Sertraline HCl 50 MG 1 tablet Oral Once a day; Duration: 90 days Active Caplyta 21 MG take 1 capsule in evening Orally daily; Duration: 90 days Active Social History Tobacco Use: Social History Observation Description Date Details (start date - stop date) Former Smoker 12/12/2009 - 06/29/2015 Sex Assigned At : Social History Observation Description Sex Assigned At Female Tobacco Control (Standard) Question Answer Notes Tobacco use: Former smoker When did you start smoking? 12/12/2009 When did you stop smoking? 06/29/2015 How long has it been since you last smoked? Grea ter than 10 years AUDIT-C (Standard) Question Answer Notes Did you have a drink containing alcohol in the p ast year? No Problems Problem Type SNOMED Code ICD Code Onset Dates Problem Status W/U Status Risk Notes Problem Bipolar II disorder (43066454) Bipolar II disorder (F31.81) Active confirmed Problem Screening for cardiovascular system disease (668937658) Encounter for screening for cardiovascular disorders (Z13.6) Active confirmed Problem Dietary management surveillance (150321969) Dietary counseling and surveillance (Z71.3) Active confirmed Problem Depression Screening (668176131) Encounter for screening for depression (Z13.31) Active confirmed Problem Generalized anxiety disorder (71903822) JED (generalized anxiety disorder) (F41.1) Active confirmed Problem Attention deficit hyperactivity disorder (690688479) ADHD (attention deficit hyperactivity disorder), combined type (F90.2) Active confirmed Problem Akathisia (735404384) Akathisia (G25.71) Active confirmed Problem Nondependent cannabis abuse (920907891) Marijuana use (F12.90) Active confirmed Problem Essential hypertension (74913753) Hypertension, unspecified type (I10) Active confirmed Problem Unable to concentrate (02514381) Unable to concentrate (R41.840) Active confirmed Vital Signs Heart Rate 72 /min 08/31/2024 Respiratory Rate 17 /min 08/31/2024 Height-cm 162.56 cm 08/31/2024 Blood pressure diastolic 81 mm Hg 08/31/2024 Weight-kg 88.91 kg 08/31/2024 Height 64 in 08/31/2024 Blood pressure systolic 123 mm Hg 08/31/2024 Weight 196 lbs 08/31/2024 BMI 33.64 kg/m2 08/31/2024 Procedures Procedure Date Ordered Date Performed Result Body Sit e ADHD Testing 01/20/2024 N/A Encounters Encounter Location Date Provider Diagnosis [address] [address] 02/24/2024 Guillermo Rocha [address] [address] 10/04/2023 Taisha Pavon Bipolar II disorder F31.81 and JED (generalized anxiety disorder) F41.[address] [address] 12/26/2023 Taisha Pavon Bipolar II disorder F31.81 ; JED (generalized anxiety disorder) F41.1 ; Hypertension, unspecified type I10 and Unable to concentrate R41.[address] [address] 01/20/2024 Diego Myers Difficulty concentrating R41.[address] [address] 01/27/2024 Taisha Pavon JED (generalized anxiety disorder) F41.1 ; Bipolar II disorder F31.81 ; Hypertension, unspecified type I10 and Unable to concentrate R41.[address] [address] 01/27/2024 Guillermo Rocha Bipolar 2 disorder F31.81 and Generalized anxiety disorder F41.[address] [address] 02/07/2024 Taisha Pavon JED (generalized anxiety disorder) F41.1 ; Bipolar II disorder F31.81 ; Hypertension, unspecified type I10 ; ADHD (attention deficit hyperactivity disorder), combined type F90.2 and Marijuana use F12.[address] [address] 03/05/2024 Taisha Thery JED (generalized anxiety disorder) F41.1 ; Hypertension, unspecified type I10 ; Bipolar II disorder F31.81 ; ADHD (attention deficit hyperactivity disorder), combined type F90.2 and Marijuana use F12.90 [facility] [employer] [facility] [address] [place] [address] 06/07/2024 Taisha Thery Encounter for screen ing for depression Z13.31 ; JED (generalized anxiety disorder) F41.1 ; Hypertension, unspecified type I10 ; Bipolar II disorder F31.81 ; ADHD (attention deficit hyperactivity disorder), combined type F90.2 ; Marijuana use F12.90 and Akathisia G25.[address] [employer] [address] [place] [address] 06/21/2024 Taisha Thery Encounter for screen ing for depression Z13.31 ; Encounter for screening for cardiovascular disorders Z13.6 ; Dietary counseling and surveillance Z71.3 ; JED (generalized anxiety disorder) F41.1 ; Hypertension, unspecified type I10 ; Bipolar II disorder F31.81 ; ADHD (attention deficit hyperactivity disorder), combined type F90.2 ; Marijuana use F12.[address] [facility] [employer] [place] [id number] [facility] [address] [place] [address] 07/20/2024 Taisha Thery Encounter for screen ing for depression Z13.31 ; Bipolar II disorder F31.81 ; Encounter for screening for cardiovascular disorders Z13.6 ; Dietary counseling and surveillance Z71.3 ; JED (generalized anxiety disorder) F41.1 ; Hypertension, unspecified type I10 ; ADHD (attention deficit hyperactivity disorder), combined type F90.2 ; Marijuana use F12.90 and Akathisia G25.71 [employer] [facility] [address] [place] [address] 07/26/2024 Taisha Thery Encounter for screen ing for depression Z13.31 ; Bipolar II disorder F31.81 ; Encounter for screening for cardiovascular disorders Z13.6 ; Dietary counseling and surveillance Z71.3 ; JED (generalized anxiety disorder) F41.1 ; Hypertension, unspecified type I10 ; ADHD (attention deficit hyperactivity disorder), combined type F90.2 ; Marijuana use F12.90 and Akathisia G25.71 [facility] [employer] [address] [address] 08/17/2024 Taisha Hawthorneremigio [facility] [employer] [address] [address] 08/31/2024 Taisha Pavon Encounter for screen ing for depression Z13.31 ; Bipolar II disorder F31.81 ; Encounter for screening for cardiovascular disorders Z13.6 ; Dietary counseling and surveillance Z71.3 ; JED (generalized anxiety disorder) F41.1 ; Hypertension, unspecified type I10 ; ADHD (attention deficit hyperactivity disorder), combined type F90.2 ; Marijuana use F12.90 ; Akathisia G25.71 and Negative depression screening Z13.31 [facility] [employer] [address] [address] 12/26/2023 Taisha Pavon [address] [address] 01/23/2024 [facility] [address] [address] 07/25/2024 Taisha Pavon Assessments Encounter Date Diagnosis (ICD Code) Assessment Notes Treatment Notes Treatment Clinical Notes Section Notes 10/04/2023 Bipolar II disorder (ICD-10 - F31.81) Bipolar Disorder: Care Instructions material was published, Learning About Movement Disorders From Antipsychotic Medicines material was published, Learning About Mood Disorders material was published, Learning About How to Get Help During a Mental Health Crisis material was published Bipolar II- Discuss and educated on rx options Abilify 5 mg at bedtime refill sent 10/04/23 90 days refer to therapy Anxiety -Zoloft 100 mg daily discuss rx sent 90 days [facility] educated on all medications, benefits, side effects and risk, and educated on depression, anxiety, and ADHD, mood d/o and educated on compliance of medications, metabolic and movement d/o education appointment is, continue therapy discussion with patient about course of treatment and patient instructions. education on serotonin syndrome SSRI/SNRI side effects discussed including but not limited to, gastric upset, nausea, vomiting, diarrhea and/or constipation, weight changes, sexual side effects including loss of libido, increased suicidal thoughts/behavio rs in children and young adults, and serotonin syndrome. Second generation antipsychotics (SGAs) have metabolic syndrome issues with weight gain, increase in prolactin, increased waist circumference, increased lipids, and increased glucose. Thus routine monitoring of weight, metabolic labs, etc. is indicated. A general rank ordering of antipsychotics that have the greatest to the least risk of metabolic effects is olanzapine, quetiapine, risperidone, ziprasidone, and aripiprazole. However, weight gain can occur with all of these drugs and considerable variability exists among patients receiving the same drug regarding the risk of metabolic effects. Anti-psychotic agents not only increase the risk of metabolic disorder, they also increase the risk of CVA, akathisia, and movement disorders including EPS or tardive dyskinesia (more common with first generation antipsychotics) and more. Medication Management and Follow-Up - Plan: - Schedule follow-up appointments every 2-3 months to monitor the patient's response to the medication regimen. - Reinforce the importance of avoiding recreational drug use due to potential neurotoxicity and interactions with prescribed medications. http_s://www.nim h.nih.gov/health /topics/mental-h ealth-medication s http_s://www.nam i.org/About-Ment al-Illness/Treat ments/Mental-Hea lth-Medications Recommend decrease/stop cannabis use as it may be negatively impacting mood, motivation, anxiety, sleep, focus; can also contribute to development of psychosis Patient educated on all medications including potential benefits, side effects, risks. Educated on proper dosing schedule and importance of compliance 12/26/2023 Bipolar II disorder (ICD-10 - F31.81) Bipolar Disorder: Care Instructions material was published, Learning About Movement Disorders From Antipsychotic Medicines material was published, Learning About Mood Disorders material was published, Learning About How to Get Help During a Mental Health Crisis material was published Bipolar II- Discuss and educated on rx options Abilify 5 mg at bedtime refill sent 10/04/23 90 days refer to therapy- will schedule [facility] Anxiety -Zoloft 100 mg daily discuss rx sent 90 days Unable to concentrate- schedule ANA-2 TEST monitor B/P- refer to PCP heart healthy diet and excise limit salt and caffiene monitor B/P educated on healthy B/P 120/80 not on B/P rx refer to PCP with B/P [facility] educated on all medications, benefits, side effects and risk, and educated on depression, anxiety, and ADHD, mood d/o and educated on compliance of medications, metabolic and movement d/o education appointment is, continue therapy discussion with patient about course of treatment and patient instructions. education on serotonin syndrome SSRI/SNRI side effects discussed including but not limited to, gastric upset, nausea, vomiting, diarrhea and/or constipation, weight changes, sexual side effects including loss of libido, increased suicidal thoughts/behavio rs in children and young adults, and serotonin syndrome. Second generation antipsychotics (SGAs) have metabolic syndrome issues with weight gain, increase in prolactin, increased waist circumference, increased lipids, and increased glucose. Thus routine monitoring of weight, metabolic labs, etc. is indicated. A general rank ordering of antipsychotics that have the greatest to the least risk of metabolic effects is olanzapine, quetiapine, risperidone, ziprasidone, and aripiprazole. However, weight gain can occur with all of these drugs and considerable variability exists among patients receiving the same drug regarding the risk of metabolic effects. Anti-psychotic agents not only increase the risk of metabolic disorder, they also increase the risk of CVA, akathisia, and movement disorders including EPS or tardive dyskinesia (more common with first generation antipsychotics) and more. Medication Management and Follow-Up - Plan: - Schedule follow-up appointments every 2-3 months to monitor the patient's response to the medication regimen. - Reinforce the importance of avoiding recreational drug use due to potential neurotoxicity and interactions with prescribed medications. http_s://www.nim h.nih.gov/health /topics/mental-h ealth-medication s http_s://www.nam i.org/About-Ment al-Illness/Treat ments/Mental-Hea lth-Medications Recommend decrease/stop cannabis use as it may be negatively impacting mood, motivation, anxiety, sleep, focus; can also contribute to development of psychosis Patient educated on all medications including potential benefits, side effects, risks. Educated on proper dosing schedule and importance of compliance 12/26/2023 JED (generalized anxiety disorder) (ICD-10 - F41.1) Learning About Generalized Anxiety Disorder material was published, Generalized Anxiety Disorder: Care Instructions material was published, Learning About Anxiety Disorders material was published Bipolar II- Discuss and educated on rx options Abilify 5 mg at bedtime refill sent 10/04/23 90 days refer to therapy- will schedule [facility] Anxiety -Zoloft 100 mg daily discuss rx sent 90 days Unable to concentrate- schedule ANA-2 TEST monitor B/P- refer to PCP heart healthy diet and excise limit salt and caffiene monitor B/P educated on healthy B/P 120/80 not on B/P rx refer to PCP with B/P [facility] educated on all medications, benefits, side effects and risk, and educated on depression, anxiety, and ADHD, mood d/o and educated on compliance of medications, metabolic and movement d/o education appointment is, continue therapy discussion with patient about course of treatment and patient instructions. education on serotonin syndrome SSRI/SNRI side effects discussed including but not limited to, gastric upset, nausea, vomiting, diarrhea and/or constipation, weight changes, sexual side effects including loss of libido, increased suicidal thoughts/behavio rs in children and young adults, and serotonin syndrome. Second generation antipsychotics (SGAs) have metabolic syndrome issues with weight gain, increase in prolactin, increased waist circumference, increased lipids, and increased glucose. Thus routine monitoring of weight, metabolic labs, etc. is indicated. A general rank ordering of antipsychotics that have the greatest to the least risk of metabolic effects is olanzapine, quetiapine, risperidone, ziprasidone, and aripiprazole. However, weight gain can occur with all of these drugs and considerable variability exists among patients receiving the same drug regarding the risk of metabolic effects. Anti-psychotic agents not only increase the risk of metabolic disorder, they also increase the risk of CVA, akathisia, and movement disorders including EPS or tardive dyskinesia (more common with first generation antipsychotics) and more. Medication Management and Follow-Up - Plan: - Schedule follow-up appointments every 2-3 months to monitor the patient's response to the medication regimen. - Reinforce the importance of avoiding recreational drug use due to potential neurotoxicity and interactions with prescribed medications. http_s://www.nim h.nih.gov/health /topics/mental-h ealth-medication s http_s://www.nam i.org/About-Ment al-Illness/Treat ments/Mental-Hea lth-Medications Recommend decrease/stop cannabis use as it may be negatively impacting mood, motivation, anxiety, sleep, focus; can also contribute to development of psychosis Patient educated on all medications including potential benefits, side effects, risks. Educated on proper dosing schedule and importance of compliance 01/20/2024 Difficulty concentrating (ICD-10 - R41.840) 01/27/2024 EJD (generalized anxiety disorder) (ICD-10 - F41.1) Learning About Generalized Anxiety Disorder material was published, Generalized Anxiety Disorder: Care Instructions material was published, Learning About Anxiety Disorders material was published Bipolar II- Discuss and educated on rx options Abilify 5 mg at bedtime no refill needed refer to therapy- will schedule [facility] Anxiety -Zoloft 100 mg daily discuss no refill needed Unable to concentrate- ANA-2 TEST partial completed 01/20/24- will complete the ANA-2 test for results 01/27/24 monitor B/P- refer to PCP heart healthy diet and excise limit salt and caffiene monitor B/P educated on healthy B/P 120/80 not on B/P rx refer to PCP with B/P [facility] educated on all medications, benefits, side effects and risk, and educated on depression, anxiety, and ADHD, mood d/o and educated on compliance of medications, metabolic and movement d/o education appointment is, continue therapy discussion with patient about course of treatment and patient instructions. education on serotonin syndrome SSRI/SNRI side effects discussed including but not limited to, gastric upset, nausea, vomiting, diarrhea and/or constipation, weight changes, sexual side effects including loss of libido, increased suicidal thoughts/behavio rs in children and young adults, and serotonin syndrome. Second generation antipsychotics (SGAs) have metabolic syndrome issues with weight gain, increase in prolactin, increased waist circumference, increased lipids, and increased glucose. Thus routine monitoring of weight, metabolic labs, etc. is indicated. A general rank ordering of antipsychotics that have the greatest to the least risk of metabolic effects is olanzapine, quetiapine, risperidone, ziprasidone, and aripiprazole. However, weight gain can occur with all of these drugs and considerable variability exists among patients receiving the same drug regarding the risk of metabolic effects. Anti-psychotic agents not only increase the risk of metabolic disorder, they also increase the risk of CVA, akathisia, and movement disorders including EPS or tardive dyskinesia (more common with first generation antipsychotics) and more. Medication Management and Follow-Up - Plan: - Schedule follow-up appointments every 2-3 months to monitor the patient's response to the medication regimen. - Reinforce the importance of avoiding recreational drug use due to potential neurotoxicity and interactions with prescribed medications. http_s://www.[facility].nih.gov/health /topics/mental-h ealth-medication s http_s://www.nam i.org/About-Ment al-Illness/Treat ments/Mental-Hea lth-Medications Recommend decrease/stop cannabis use as it may be negatively impacting mood, motivation, anxiety, sleep, focus; can also contribute to development of psychosis Patient educated on all medications including potential benefits, side effects, risks. Educated on proper dosing schedule and importance of compliance 02/07/2024 JED (generalized anxiety disorder) (ICD-10 - F41.1) Learning About Generalized Anxiety Disorder material was published, Generalized Anxiety Disorder: Care Instructions material was published, Learning About Anxiety Disorders material was published, Generalized Anxiety Disorder: Care Instructions material was published, Learning About Generalized Anxiety Disorder material was published, Learning About Anxiety Disorders material was published 1.Bipolar II- Discuss and educated on rx options Abilify 5 mg at bedtime refer to therapy- will schedule [facility] 2.Anxiety -Zoloft 100 mg daily discuss 3.ADHD combination discuss and educated on stimualtes and non- stimulates will add Straterra 25 mg daily in am for 1 week then increase Straterra 40 mg daily in am no control substance prescribed by [facility] r/t cannabis use ANA-2 TEST partial completed 01/20/24- complete the ANA-2 test for results 01/27/24 ANA-2 results ADHD combination 4. Cannabis use no control substance presribed by [facility] Reinforce the importance of avoiding recreational drug use due to potential neurotoxicity and interactions with prescribed medications. http__s://www.[facility].nih.gov/healt h/topics/mental- health-medicatio ns http__s://www.na mi.org/About-Men ariadna-Illness/Alicia tments/Mental-He alth-Medications Recommend decrease/stop cannabis use as it may be negatively impacting mood, motivation, anxiety, sleep, focus; can also contribute to development of psychosis 5. elevated blood pressure monitor B/P- refer to PCP heart healthy diet and excise limit salt and caffiene monitor B/P educated on healthy B/P 120/80 not on B/P rx refer to PCP with B/P [facility] educated on all medications, benefits, side effects and risk, and educated on depression, anxiety, and ADHD, mood d/o and educated on compliance of medications, metabolic and movement d/o education appointment is, continue therapy discussion with patient about course of treatment and patient instructions. education on serotonin syndrome SSRI/SNRI side effects discussed including but not limited to, gastric upset, nausea, vomiting, diarrhea and/or constipation, weight changes, sexual side effects including loss of libido, increased suicidal thoughts/behavio rs in children and young adults, and serotonin syndrome. Second generation antipsychotics (SGAs) have metabolic syndrome issues with weight gain, increase in prolactin, increased waist circumference, increased lipids, and increased glucose. Thus routine monitoring of weight, metabolic labs, etc. is indicated. A general rank ordering of antipsychotics that have the greatest to the least risk of metabolic effects is olanzapine, quetiapine, risperidone, ziprasidone, and aripiprazole. However, weight gain can occur with all of these drugs and considerable variability exists among patients receiving the same drug regarding the risk of metabolic effects. Anti-psychotic agents not only increase the risk of metabolic disorder, they also increase the risk of CVA, akathisia, and movement disorders including EPS or tardive dyskinesia (more common with first generation antipsychotics) and more. Medication Management and Follow-Up - Plan: - Schedule follow-up appointments every 1-3 months to monitor the patient's response to the medication regimen. - Patient educated on all medications including potential benefits, side effects, risks. Educated on proper dosing schedule and importance of compliance 03/05/2024 JED (generalized anxiety disorder) (ICD-10 - F41.1) Learning About Generalized Anxiety Disorder material was published, Generalized Anxiety Disorder: Care Instructions material was published, Learning About Anxiety Disorders material was published, Generalized Anxiety Disorder: Care Instructions material was published, Learning About Generalized Anxiety Disorder material was published, Learning About Anxiety Disorders material was published 1.Bipolar II- Discuss and educated on rx options Abilify 5 mg at bedtime- no refill needed today refer to therapy- will schedule [facility]- patient cxl appt, 2.Anxiety -Zoloft 100 mg daily discuss- no refill needed today 3.ADHD combination discuss and educated on stimualtes and non- stimulates Straterra 40 mg daily in am no control substance prescribed by [facility] r/t cannabis use ANA-2 TEST partial completed 01/20/24- complete the ANA-2 test for results 01/27/24 ANA-2 results ADHD combination 4. Cannabis use no control substance presribed by [facility] Reinforce the importance of avoiding recreational drug use due to potential neurotoxicity and interactions with prescribed medications. http__s://www.[facility].nih.gov/healt h/topics/mental- health-medicatio ns http__s://www.na mi.org/About-Men ariadna-Illness/Alicia tments/Mental-He alth-Medications Recommend decrease/stop cannabis use as it may be negatively impacting mood, motivation, anxiety, sleep, focus; can also contribute to development of psychosis 5. elevated blood pressure monitor B/P- refer to PCP heart healthy diet and excise limit salt and caffiene monitor B/P educated on healthy B/P 120/80 not on B/P rx PCP with B/P [facility] educated on all medications, benefits, side effects and risk, and educated on depression, anxiety, and ADHD, mood d/o and educated on compliance of medications, metabolic and movement d/o education appointment is, continue therapy discussion with patient about course of treatment and patient instructions. education on serotonin syndrome SSRI/SNRI side effects discussed including but not limited to, gastric upset, nausea, vomiting, diarrhea and/or constipation, weight changes, sexual side effects including loss of libido, increased suicidal thoughts/behavio rs in children and young adults, and serotonin syndrome. Second generation antipsychotics (SGAs) have metabolic syndrome issues with weight gain, increase in prolactin, increased waist circumference, increased lipids, and increased glucose. Thus routine monitoring of weight, metabolic labs, etc. is indicated. A general rank ordering of antipsychotics that have the greatest to the least risk of metabolic effects is olanzapine, quetiapine, risperidone, ziprasidone, and aripiprazole. However, weight gain can occur with all of these drugs and considerable variability exists among patients receiving the same drug regarding the risk of metabolic effects. Anti-psychotic agents not only increase the risk of metabolic disorder, they also increase the risk of CVA, akathisia, and movement disorders including EPS or tardive dyskinesia (more common with first generation antipsychotics) and more. Medication Management and Follow-Up - Plan: - Schedule follow-up appointments every 1-3 months to monitor the patient's response to the medication regimen. - Patient educated on all medications including potential benefits, side effects, risks. Educated on proper dosing schedule and importance of compliance 06/07/2024 Encounter for screening for depression (ICD-10 - Z13.31) 1.Bipolar II- Discuss and educated on rx options- may switch to Caplyta or Vraylar next visit pateint is expressing Akathisia in legs - r/o Abilify will decrease Abilify to 2.5 mg at bedtime Abilify 2.5 mg at bedtime- no refill needed today- has 5 mg dose at home to split - no refill needed refer to therapy- will schedule [facility]- patient cxl appt, 2.Anxiety -Zoloft 100 mg daily discuss- no refill needed today 3.ADHD combination discuss and educated on stimualtes and non- stimulates Straterra 40 mg daily in am- no refill needed no control substance prescribed by [facility] r/t cannabis use ANA-2 TEST partial completed 01/20/24- complete the ANA-2 test for results 01/27/24 ANA-2 results ADHD combination 4. Cannabis use no control substance presribed by [facility] Reinforce the importance of avoiding recreational drug use due to potential neurotoxicity and interactions with prescribed medications. http__s://www.ni .nih.gov/healt h/topics/mental- health-medicatio ns http__s://www.na mi.org/About-Men ariadna-Illness/Alicia tments/Mental-He alth-Medications Recommend decrease/stop cannabis use as it may be negatively impacting mood, motivation, anxiety, sleep, focus; can also contribute to development of psychosis 5. hx elevated blood pressure- stable today monitor B/P- see PCP- no B/P rx heart healthy diet and excise limit salt and caffiene monitor B/P educated on healthy B/P 120/80 not on B/P rx PCP with B/P [facility] educated on all medications, benefits, side effects and risk, and educated on depression, anxiety, and ADHD, mood d/o and educated on compliance of medications, metabolic and movement d/o education appointment is, continue therapy discussion with patient about course of treatment and patient instructions. education on serotonin syndrome SSRI/SNRI side effects discussed including but not limited to, gastric upset, nausea, vomiting, diarrhea and/or constipation, weight changes, sexual side effects including loss of libido, increased suicidal thoughts/behavio rs in children and young adults, and serotonin syndrome. Second generation antipsychotics (SGAs) have metabolic syndrome issues with weight gain, increase in prolactin, increased waist circumference, increased lipids, and increased glucose. Thus routine monitoring of weight, metabolic labs, etc. is indicated. A general rank ordering of antipsychotics that have the greatest to the least risk of metabolic effects is olanzapine, quetiapine, risperidone, ziprasidone, and aripiprazole. However, weight gain can occur with all of these drugs and considerable variability exists among patients receiving the same drug regarding the risk of metabolic effects. Anti-psychotic agents not only increase the risk of metabolic disorder, they also increase the risk of CVA, akathisia, and movement disorders including EPS or tardive dyskinesia (more common with first generation antipsychotics) and more. Medication Management and Follow-Up - Plan: - Schedule follow-up appointments every 1-3 months to monitor the patient's response to the medication regimen. - Patient educated on all medications including potential benefits, side effects, risks. Educated on proper dosing schedule and importance of compliance 06/21/2024 Encounter for screening for depression (ICD-10 - Z13.31) 1.Bipolar II- Discuss and educated on rx options- may switch to Caplyta pateint is expressing Akathisia in legs and restelss improved but still have daily and also in feet D/C Abilify 2.5 mg at bedtime- ADD Caplyta 10.5 mg in evening - sampls given educated on all rx refer to therapy- will schedule [facility]- patient cxl appt, 2.Anxiety -Zoloft 100 mg daily stable 3.ADHD combination discuss and educated on stimualtes and non- stimulates Straterra 40 mg daily in am- stable no control substance prescribed by [facility] r/t cannabis use ANA-2 TEST partial completed 01/20/24- complete the ANA-2 test for results 01/27/24 ANA-2 results ADHD combination 4. Cannabis use no control substance presribed by [facility] Reinforce the importance of avoiding recreational drug use due to potential neurotoxicity and interactions with prescribed medications. http__s://www.ni .nih.gov/healt h/topics/mental- health-medicatio ns http__s://www.na mi.org/About-Men ariadna-Illness/Alicia tments/Mental-He alth-Medications Recommend decrease/stop cannabis use as it may be negatively impacting mood, motivation, anxiety, sleep, focus; can also contribute to development of psychosis 5. hx elevated blood pressure- monitor B/P- see PCP- no B/P rx heart healthy diet and excise limit salt and caffiene monitor B/P educated on healthy B/P 120/80 not on B/P rx PCP with B/P [facility] educated on all medications, benefits, side effects and risk, and educated on depression, anxiety, and ADHD, mood d/o and educated on compliance of medications, metabolic and movement d/o education appointment is, continue therapy discussion with patient about course of treatment and patient instructions. education on serotonin syndrome SSRI/SNRI side effects discussed including but not limited to, gastric upset, nausea, vomiting, diarrhea and/or constipation, weight changes, sexual side effects including loss of libido, increased suicidal thoughts/behavio rs in children and young adults, and serotonin syndrome. Second generation antipsychotics (SGAs) have metabolic syndrome issues with weight gain, increase in prolactin, increased waist circumference, increased lipids, and increased glucose. Thus routine monitoring of weight, metabolic labs, etc. is indicated. A general rank ordering of antipsychotics that have the greatest to the least risk of metabolic effects is olanzapine, quetiapine, risperidone, ziprasidone, and aripiprazole. However, weight gain can occur with all of these drugs and considerable variability exists among patients receiving the same drug regarding the risk of metabolic effects. Anti-psychotic agents not only increase the risk of metabolic disorder, they also increase the risk of CVA, akathisia, and movement disorders including EPS or tardive dyskinesia (more common with first generation antipsychotics) and more. Medication Management and Follow-Up - Plan: - Schedule follow-up appointments every 1-3 months to monitor the patient's response to the medication regimen. - Patient educated on all medications including potential benefits, side effects, risks. Educated on proper dosing schedule and importance of compliance 07/26/2024 Encounter for screening for depression (ICD-10 - Z13.31) 1.Bipolar II- Discuss and educated on rx options- Caplyta Caplyta 21 mg in evening - samples given last visit and rx filled - no refill needed today educated on all rx refer to therapy- will schedule [facility]- patient cxl appt,-went once and didn't go back 2.Anxiety - decrease Zoloft 50 mg daily- r/o restless legs and feet - no refill needed today will split 100 mg dose has at home stable 3.ADHD combination discuss and educated on stimualtes and non- stimulates Straterra 40 mg daily in am- stable no control substance prescribed by [facility] r/t cannabis use ANA-2 TEST partial completed 01/20/24- complete the ANA-2 test for results 01/27/24 ANA-2 results ADHD combination 4. Cannabis use no control substance presribed by [facility] Reinforce the importance of avoiding recreational drug use due to potential neurotoxicity and interactions with prescribed medications. http__s://www.ni .nih.gov/healt h/topics/mental- health-medicatio ns http__s://www.na mi.org/About-Men ariadna-Illness/Alicia tments/Mental-He alth-Medications Recommend decrease/stop cannabis use as it may be negatively impacting mood, motivation, anxiety, sleep, focus; can also contribute to development of psychosis 5. hx elevated blood pressure- wnl monitor B/P- see PCP- no B/P rx heart healthy diet and excise limit salt and caffiene monitor B/P educated on healthy B/P 120/80 not on B/P rx PCP with B/P [facility] educated on all medications, benefits, side effects and risk, and educated on depression, anxiety, and ADHD, mood d/o and educated on compliance of medications, metabolic and movement d/o education appointment is, continue therapy discussion with patient about course of treatment and patient instructions. education on serotonin syndrome SSRI/SNRI side effects discussed including but not limited to, gastric upset, nausea, vomiting, diarrhea and/or constipation, weight changes, sexual side effects including loss of libido, increased suicidal thoughts/behavio rs in children and young adults, and serotonin syndrome. Second generation antipsychotics (SGAs) have metabolic syndrome issues with weight gain, increase in prolactin, increased waist circumference, increased lipids, and increased glucose. Thus routine monitoring of weight, metabolic labs, etc. is indicated. A general rank ordering of antipsychotics that have the greatest to the least risk of metabolic effects is olanzapine, quetiapine, risperidone, ziprasidone, and aripiprazole. However, weight gain can occur with all of these drugs and considerable variability exists among patients receiving the same drug regarding the risk of metabolic effects. Anti-psychotic agents not only increase the risk of metabolic disorder, they also increase the risk of CVA, akathisia, and movement disorders including EPS or tardive dyskinesia (more common with first generation antipsychotics) and more. Medication Management and Follow-Up - Plan: - Schedule follow-up appointments every 1-3 months to monitor the patient's response to the medication regimen. - Patient educated on all medications including potential benefits, side effects, risks. Educated on proper dosing schedule and importance of compliance 08/31/2024 Encounter for screening for depression (ICD-10 - Z13.31) 1.Bipolar II- Discuss and educated on rx options- Caplyta Caplyta 21 mg in evening - - educated on all rx refer to therapy- will schedule [facility]- patient cxl appt,-went once and didn't go back 2.Anxiety - Zoloft 50 mg daily- improved restless legs and feet - no refill needed today stable 3.ADHD combination discuss and educated on stimualtes and non- stimulates Straterra 40 mg daily in am- stable no refill needed today no control substance prescribed by [facility] r/t cannabis use ANA-2 TEST partial completed 01/20/24- complete the ANA-2 test for results 01/27/24 ANA-2 results ADHD combination 4. Cannabis use no control substance presribed by [facility] Reinforce the importance of avoiding recreational drug use due to potential neurotoxicity and interactions with prescribed medications. http__s://www.ni mh.nih.gov/healt h/topics/mental- health-medicatio ns http__s://www.na mi.org/About-Men ariadna-Illness/Alicia tments/Mental-He alth-Medications Recommend decrease/stop cannabis use as it may be negatively impacting mood, motivation, anxiety, sleep, focus; can also contribute to development of psychosis 5. hx elevated blood pressure- wnl monitor B/P- see PCP- no B/P rx heart healthy diet and excise limit salt and caffiene monitor B/P educated on healthy B/P 120/80 not on B/P rx PCP with B/P [facility] educated on all medications, benefits, side effects and risk, and educated on depression, anxiety, and ADHD, mood d/o and educated on compliance of medications, metabolic and movement d/o education appointment is, continue therapy discussion with patient about course of treatment and patient instructions. education on serotonin syndrome SSRI/SNRI side effects discussed including but not limited to, gastric upset, nausea, vomiting, diarrhea and/or constipation, weight changes, sexual side effects including loss of libido, increased suicidal thoughts/behavio rs in children and young adults, and serotonin syndrome. Second generation antipsychotics (SGAs) have metabolic syndrome issues with weight gain, increase in prolactin, increased waist circumference, increased lipids, and increased glucose. Thus routine monitoring of weight, metabolic labs, etc. is indicated. A general rank ordering of antipsychotics that have the greatest to the least risk of metabolic effects is olanzapine, quetiapine, risperidone, ziprasidone, and aripiprazole. However, weight gain can occur with all of these drugs and considerable variability exists among patients receiving the same drug regarding the risk of metabolic effects. Anti-psychotic agents not only increase the risk of metabolic disorder, they also increase the risk of CVA, akathisia, and movement disorders including EPS or tardive dyskinesia (more common with first generation antipsychotics) and more. Medication Management and Follow-Up - Plan: - Schedule follow-up appointments every 1-3 months to monitor the patient's response to the medication regimen. - Patient educated on all medications including potential benefits, side effects, risks. Educated on proper dosing schedule and importance of compliance 07/20/2024 Encounter for screening for depression (ICD-10 - Z13.31) 1.Bipolar II- Discuss and educated on rx options- Caplyta INCREASE Caplyta 21 mg in evening - samples given educated on all rx refer to therapy- will schedule [facility]- patient cxl appt,-went once and didn't go back 2.Anxiety -Zoloft 100 mg daily stable 3.ADHD combination discuss and educated on stimualtes and non- stimulates Straterra 40 mg daily in am- stable no control substance prescribed by [facility] r/t cannabis use ANA-2 TEST partial completed 01/20/24- complete the ANA-2 test for results 01/27/24 ANA-2 results ADHD combination 4. Cannabis use no control substance presribed by [facility] Reinforce the importance of avoiding recreational drug use due to potential neurotoxicity and interactions with prescribed medications. http__s://www.ni .nih.gov/healt h/topics/mental- health-medicatio ns http__s://www.na mi.org/About-Men ariadna-Illness/Alicia tments/Mental-He alth-Medications Recommend decrease/stop cannabis use as it may be negatively impacting mood, motivation, anxiety, sleep, focus; can also contribute to development of psychosis 5. hx elevated blood pressure- monitor B/P- see PCP- no B/P rx heart healthy diet and excise limit salt and caffiene monitor B/P educated on healthy B/P 120/80 not on B/P rx PCP with B/P [facility] educated on all medications, benefits, side effects and risk, and educated on depression, anxiety, and ADHD, mood d/o and educated on compliance of medications, metabolic and movement d/o education appointment is, continue therapy discussion with patient about course of treatment and patient instructions. education on serotonin syndrome SSRI/SNRI side effects discussed including but not limited to, gastric upset, nausea, vomiting, diarrhea and/or constipation, weight changes, sexual side effects including loss of libido, increased suicidal thoughts/behavio rs in children and young adults, and serotonin syndrome. Second generation antipsychotics (SGAs) have metabolic syndrome issues with weight gain, increase in prolactin, increased waist circumference, increased lipids, and increased glucose. Thus routine monitoring of weight, metabolic labs, etc. is indicated. A general rank ordering of antipsychotics that have the greatest to the least risk of metabolic effects is olanzapine, quetiapine, risperidone, ziprasidone, and aripiprazole. However, weight gain can occur with all of these drugs and considerable variability exists among patients receiving the same drug regarding the risk of metabolic effects. Anti-psychotic agents not only increase the risk of metabolic disorder, they also increase the risk of CVA, akathisia, and movement disorders including EPS or tardive dyskinesia (more common with first generation antipsychotics) and more. Medication Management and Follow-Up - Plan: - Schedule follow-up appointments every 1-3 months to monitor the patient's response to the medication regimen. - Patient educated on all medications including potential benefits, side effects, risks. Educated on proper dosing schedule and importance of compliance 07/20/2024 Bipolar II disorder (ICD-10 - F31.81) Bipolar Disorder: Care Instructions material was published, Learning About Movement Disorders From Antipsychotic Medicines material was published, Learning About Mood Disorders material was published, Learning About How to Get Help During a Mental Health Crisis material was published, Bipolar Disorder: Care Instructions material was published, Learning About Mood Disorders material was published, Learning About Movement Disorders From Antipsychotic Medicines material was published, Learning About How to Get Help During a Mental Health Crisis material was published, Learning About Movement Disorders From Antipsychotic Medicines material was published 1.Bipolar II- Discuss and educated on rx options- Caplyta INCREASE Caplyta 21 mg in evening - samples given educated on all rx refer to therapy- will schedule [facility]- patient cxl appt,-went once and didn't go back 2.Anxiety -Zoloft 100 mg daily stable 3.ADHD combination discuss and educated on stimualtes and non- stimulates Straterra 40 mg daily in am- stable no control substance prescribed by [facility] r/t cannabis use ANA-2 TEST partial completed 01/20/24- complete the ANA-2 test for results 01/27/24 ANA-2 results ADHD combination 4. Cannabis use no control substance presribed by [facility] Reinforce the importance of avoiding recreational drug use due to potential neurotoxicity and interactions with prescribed medications. http__s://www.ni .nih.gov/healt h/topics/mental- health-medicatio ns http__s://www.na mi.org/About-Men ariadna-Illness/Alicia tments/Mental-He alth-Medications Recommend decrease/stop cannabis use as it may be negatively impacting mood, motivation, anxiety, sleep, focus; can also contribute to development of psychosis 5. hx elevated blood pressure- monitor B/P- see PCP- no B/P rx heart healthy diet and excise limit salt and caffiene monitor B/P educated on healthy B/P 120/80 not on B/P rx PCP with B/P [facility] educated on all medications, benefits, side effects and risk, and educated on depression, anxiety, and ADHD, mood d/o and educated on compliance of medications, metabolic and movement d/o education appointment is, continue therapy discussion with patient about course of treatment and patient instructions. education on serotonin syndrome SSRI/SNRI side effects discussed including but not limited to, gastric upset, nausea, vomiting, diarrhea and/or constipation, weight changes, sexual side effects including loss of libido, increased suicidal thoughts/behavio rs in children and young adults, and serotonin syndrome. Second generation antipsychotics (SGAs) have metabolic syndrome issues with weight gain, increase in prolactin, increased waist circumference, increased lipids, and increased glucose. Thus routine monitoring of weight, metabolic labs, etc. is indicated. A general rank ordering of antipsychotics that have the greatest to the least risk of metabolic effects is olanzapine, quetiapine, risperidone, ziprasidone, and aripiprazole. However, weight gain can occur with all of these drugs and considerable variability exists among patients receiving the same drug regarding the risk of metabolic effects. Anti-psychotic agents not only increase the risk of metabolic disorder, they also increase the risk of CVA, akathisia, and movement disorders including EPS or tardive dyskinesia (more common with first generation antipsychotics) and more. Medication Management and Follow-Up - Plan: - Schedule follow-up appointments every 1-3 months to monitor the patient's response to the medication regimen. - Patient educated on all medications including potential benefits, side effects, risks. Educated on proper dosing schedule and importance of compliance 01/27/2024 Generalized anxiety disorder (ICD-10 - F41.1) Joann Devries is a 38 year old female seen today for initial assessment to start individual psychotherapy. Noted that she has seen Taisha Pavon for medication therapy for the past 3 months. Recently diagnosed with Bipolar II and has a long hx of anxiety which dates back 10 years if not longer. Depression and anxiety made worse by the of her father who she was very close to. No psych admissions or out patient therapy reported by client. Stated being unsure if she needs therapy but is willing to give it a try. Client born and grew up in [place], [place]. She is the youngest of three, brother and sister who she is close with. She is the mother of a 7 year old daughter and two year old son. 01/27/2024 Bipolar 2 disorder (ICD-10 - F31.81) Joann Devries is a 38 year old female seen today for initial assessment to start individual psychotherapy. Noted that she has seen Taisha Pavon for medication therapy for the past 3 months. Recently diagnosed with Bipolar II and has a long hx of anxiety which dates back 10 years if not longer. Depression and anxiety made worse by the of her father who she was very close to. No psych admissions or out patient therapy reported by client. Stated being unsure if she needs therapy but is willing to give it a try. Client born and grew up in [place], [place]. She is the youngest of three, brother and sister who she is close with. She is the mother of a 7 year old daughter and two year old son. 07/20/2024 Encounter for screening for cardiovascular disorders (ICD-10 - Z13.6) 1.Bipolar II- Discuss and educated on rx options- Caplyta INCREASE Caplyta 21 mg in evening - samples given educated on all rx refer to therapy- will schedule [facility]- patient cxl appt,-went once and didn't go back 2.Anxiety -Zoloft 100 mg daily stable 3.ADHD combination discuss and educated on stimualtes and non- stimulates Straterra 40 mg daily in am- stable no control substance prescribed by [facility] r/t cannabis use ANA-2 TEST partial completed 01/20/24- complete the ANA-2 test for results 01/27/24 ANA-2 results ADHD combination 4. Cannabis use no control substance presribed by [facility] Reinforce the importance of avoiding recreational drug use due to potential neurotoxicity and interactions with prescribed medications. http__s://www.ni .nih.gov/healt h/topics/mental- health-medicatio ns http__s://www.na mi.org/About-Men ariadna-Illness/Alicia tments/Mental-He alth-Medications Recommend decrease/stop cannabis use as it may be negatively impacting mood, motivation, anxiety, sleep, focus; can also contribute to development of psychosis 5. hx elevated blood pressure- monitor B/P- see PCP- no B/P rx heart healthy diet and excise limit salt and caffiene monitor B/P educated on healthy B/P 120/80 not on B/P rx PCP with B/P Rose Patel educated on all medications, benefits, side effects and risk, and educated on depression, anxiety, and ADHD, mood d/o and educated on compliance of medications, metabolic and movement d/o education appointment is, continue therapy discussion with patient about course of treatment and patient instructions. education on serotonin syndrome SSRI/SNRI side effects discussed including but not limited to, gastric upset, nausea, vomiting, diarrhea and/or constipation, weight changes, sexual side effects including loss of libido, increased suicidal thoughts/behavio rs in children and young adults, and serotonin syndrome. Second generation antipsychotics (SGAs) have metabolic syndrome issues with weight gain, increase in prolactin, increased waist circumference, increased lipids, and increased glucose. Thus routine monitoring of weight, metabolic labs, etc. is indicated. A general rank ordering of antipsychotics that have the greatest to the least risk of metabolic effects is olanzapine, quetiapine, risperidone, ziprasidone, and aripiprazole. However, weight gain can occur with all of these drugs and considerable variability exists among patients receiving the same drug regarding the risk of metabolic effects. Anti-psychotic agents not only increase the risk of metabolic disorder, they also increase the risk of CVA, akathisia, and movement disorders including EPS or tardive dyskinesia (more common with first generation antipsychotics) and more. Medication Management and Follow-Up - Plan: - Schedule follow-up appointments every 1-3 months to monitor the patient's response to the medication regimen. - Patient educated on all medications including potential benefits, side effects, risks. Educated on proper dosing schedule and importance of compliance 08/31/2024 Bipolar II disorder (ICD-10 - F31.81) Bipolar Disorder: Care Instructions material was published, Learning About Movement Disorders From Antipsychotic Medicines material was published, Learning About Mood Disorders material was published, Learning About How to Get Help During a Mental Health Crisis material was published, Bipolar Disorder: Care Instructions material was published, Learning About Mood Disorders material was published, Learning About Movement Disorders From Antipsychotic Medicines material was published, Learning About How to Get Help During a Mental Health Crisis material was published, Learning About Movement Disorders From Antipsychotic Medicines material was published 1.Bipolar II- Discuss and educated on rx options- Caplyta Caplyta 21 mg in evening - - educated on all rx refer to therapy- will schedule [facility]- patient cxl appt,-went once and didn't go back 2.Anxiety - Zoloft 50 mg daily- improved restless legs and feet - no refill needed today stable 3.ADHD combination discuss and educated on stimualtes and non- stimulates Straterra 40 mg daily in am- stable no refill needed today no control substance prescribed by [facility] r/t cannabis use ANA-2 TEST partial completed 01/20/24- complete the ANA-2 test for results 01/27/24 ANA-2 results ADHD combination 4. Cannabis use no control substance presribed by [facility] Reinforce the importance of avoiding recreational drug use due to potential neurotoxicity and interactions with prescribed medications. http__s://www.ni .nih.gov/healt h/topics/mental- health-medicatio ns http__s://www.na mi.org/About-Men ariadna-Illness/Alicia tments/Mental-He alth-Medications Recommend decrease/stop cannabis use as it may be negatively impacting mood, motivation, anxiety, sleep, focus; can also contribute to development of psychosis 5. hx elevated blood pressure- wnl monitor B/P- see PCP- no B/P rx heart healthy diet and excise limit salt and caffiene monitor B/P educated on healthy B/P 120/80 not on B/P rx PCP with B/P Rose Patel educated on all medications, benefits, side effects and risk, and educated on depression, anxiety, and ADHD, mood d/o and educated on compliance of medications, metabolic and movement d/o education appointment is, continue therapy discussion with patient about course of treatment and patient instructions. education on serotonin syndrome SSRI/SNRI side effects discussed including but not limited to, gastric upset, nausea, vomiting, diarrhea and/or constipation, weight changes, sexual side effects including loss of libido, increased suicidal thoughts/behavio rs in children and young adults, and serotonin syndrome. Second generation antipsychotics (SGAs) have metabolic syndrome issues with weight gain, increase in prolactin, increased waist circumference, increased lipids, and increased glucose. Thus routine monitoring of weight, metabolic labs, etc. is indicated. A general rank ordering of antipsychotics that have the greatest to the least risk of metabolic effects is olanzapine, quetiapine, risperidone, ziprasidone, and aripiprazole. However, weight gain can occur with all of these drugs and considerable variability exists among patients receiving the same drug regarding the risk of metabolic effects. Anti-psychotic agents not only increase the risk of metabolic disorder, they also increase the risk of CVA, akathisia, and movement disorders including EPS or tardive dyskinesia (more common with first generation antipsychotics) and more. Medication Management and Follow-Up - Plan: - Schedule follow-up appointments every 1-3 months to monitor the patient's response to the medication regimen. - Patient educated on all medications including potential benefits, side effects, risks. Educated on proper dosing schedule and importance of compliance 07/26/2024 Bipolar II disorder (ICD-10 - F31.81) Bipolar Disorder: Care Instructions material was published, Learning About Movement Disorders From Antipsychotic Medicines material was published, Learning About Mood Disorders material was published, Learning About How to Get Help During a Mental Health Crisis material was published, Bipolar Disorder: Care Instructions material was published, Learning About Mood Disorders material was published, Learning About Movement Disorders From Antipsychotic Medicines material was published, Learning About How to Get Help During a Mental Health Crisis material was published, Learning About Movement Disorders From Antipsychotic Medicines material was published 1.Bipolar II- Discuss and educated on rx options- Caplyta Caplyta 21 mg in evening - samples given last visit and rx filled - no refill needed today educated on all rx refer to therapy- will schedule [facility]- patient cxl appt,-went once and didn't go back 2.Anxiety - decrease Zoloft 50 mg daily- r/o restless legs and feet - no refill needed today will split 100 mg dose has at home stable 3.ADHD combination discuss and educated on stimualtes and non- stimulates Straterra 40 mg daily in am- stable no control substance prescribed by [facility] r/t cannabis use ANA-2 TEST partial completed 01/20/24- complete the ANA-2 test for results 01/27/24 ANA-2 results ADHD combination 4. Cannabis use no control substance presribed by [facility] Reinforce the importance of avoiding recreational drug use due to potential neurotoxicity and interactions with prescribed medications. http__s://www.ni mh.nih.gov/healt h/topics/mental- health-medicatio ns http__s://www.na mi.org/About-Men ariadna-Illness/Alicia tments/Mental-He alth-Medications Recommend decrease/stop cannabis use as it may be negatively impacting mood, motivation, anxiety, sleep, focus; can also contribute to development of psychosis 5. hx elevated blood pressure- wnl monitor B/P- see PCP- no B/P rx heart healthy diet and excise limit salt and caffiene monitor B/P educated on healthy B/P 120/80 not on B/P rx PCP with B/P Rose Patel educated on all medications, benefits, side effects and risk, and educated on depression, anxiety, and ADHD, mood d/o and educated on compliance of medications, metabolic and movement d/o education appointment is, continue therapy discussion with patient about course of treatment and patient instructions. education on serotonin syndrome SSRI/SNRI side effects discussed including but not limited to, gastric upset, nausea, vomiting, diarrhea and/or constipation, weight changes, sexual side effects including loss of libido, increased suicidal thoughts/behavio rs in children and young adults, and serotonin syndrome. Second generation antipsychotics (SGAs) have metabolic syndrome issues with weight gain, increase in prolactin, increased waist circumference, increased lipids, and increased glucose. Thus routine monitoring of weight, metabolic labs, etc. is indicated. A general rank ordering of antipsychotics that have the greatest to the least risk of metabolic effects is olanzapine, quetiapine, risperidone, ziprasidone, and aripiprazole. However, weight gain can occur with all of these drugs and considerable variability exists among patients receiving the same drug regarding the risk of metabolic effects. Anti-psychotic agents not only increase the risk of metabolic disorder, they also increase the risk of CVA, akathisia, and movement disorders including EPS or tardive dyskinesia (more common with first generation antipsychotics) and more. Medication Management and Follow-Up - Plan: - Schedule follow-up appointments every 1-3 months to monitor the patient's response to the medication regimen. - Patient educated on all medications including potential benefits, side effects, risks. Educated on proper dosing schedule and importance of compliance 06/21/2024 Encounter for screening for cardiovascular disorders (ICD-10 - Z13.6) 1.Bipolar II- Discuss and educated on rx options- may switch to Caplyta pateint is expressing Akathisia in legs and restelss improved but still have daily and also in feet D/C Abilify 2.5 mg at bedtime- ADD Caplyta 10.5 mg in evening - sampls given educated on all rx refer to therapy- will schedule [facility]- patient cxl appt, 2.Anxiety -Zoloft 100 mg daily stable 3.ADHD combination discuss and educated on stimualtes and non- stimulates Straterra 40 mg daily in am- stable no control substance prescribed by [facility] r/t cannabis use ANA-2 TEST partial completed 01/20/24- complete the ANA-2 test for results 01/27/24 ANA-2 results ADHD combination 4. Cannabis use no control substance presribed by [facility] Reinforce the importance of avoiding recreational drug use due to potential neurotoxicity and interactions with prescribed medications. http__s://www.ni .nih.gov/healt h/topics/mental- health-medicatio ns http__s://www.na mi.org/About-Men ariadna-Illness/Alicia tments/Mental-He alth-Medications Recommend decrease/stop cannabis use as it may be negatively impacting mood, motivation, anxiety, sleep, focus; can also contribute to development of psychosis 5. hx elevated blood pressure- monitor B/P- see PCP- no B/P rx heart healthy diet and excise limit salt and caffiene monitor B/P educated on healthy B/P 120/80 not on B/P rx PCP with B/P [facility] educated on all medications, benefits, side effects and risk, and educated on depression, anxiety, and ADHD, mood d/o and educated on compliance of medications, metabolic and movement d/o education appointment is, continue therapy discussion with patient about course of treatment and patient instructions. education on serotonin syndrome SSRI/SNRI side effects discussed including but not limited to, gastric upset, nausea, vomiting, diarrhea and/or constipation, weight changes, sexual side effects including loss of libido, increased suicidal thoughts/behavio rs in children and young adults, and serotonin syndrome. Second generation antipsychotics (SGAs) have metabolic syndrome issues with weight gain, increase in prolactin, increased waist circumference, increased lipids, and increased glucose. Thus routine monitoring of weight, metabolic labs, etc. is indicated. A general rank ordering of antipsychotics that have the greatest to the least risk of metabolic effects is olanzapine, quetiapine, risperidone, ziprasidone, and aripiprazole. However, weight gain can occur with all of these drugs and considerable variability exists among patients receiving the same drug regarding the risk of metabolic effects. Anti-psychotic agents not only increase the risk of metabolic disorder, they also increase the risk of CVA, akathisia, and movement disorders including EPS or tardive dyskinesia (more common with first generation antipsychotics) and more. Medication Management and Follow-Up - Plan: - Schedule follow-up appointments every 1-3 months to monitor the patient's response to the medication regimen. - Patient educated on all medications including potential benefits, side effects, risks. Educated on proper dosing schedule and importance of compliance 02/07/2024 Bipolar II disorder (ICD-10 - F31.81) Bipolar Disorder: Care Instructions material was published, Learning About Movement Disorders From Antipsychotic Medicines material was published, Learning About Mood Disorders material was published, Learning About How to Get Help During a Mental Health Crisis material was published, Bipolar Disorder: Care Instructions material was published, Learning About Mood Disorders material was published, Learning About Movement Disorders From Antipsychotic Medicines material was published, Learning About How to Get Help During a Mental Health Crisis material was published [facility] Response got Denied on 2024-06-21 13:59:04 for 'ARIPiprazole 5 MG Tablet'Pharmacy Notes: Rx not found. Call if you have questions 1.Bipolar II- Discuss and educated on rx options Abilify 5 mg at bedtime refer to therapy- will schedule [facility] 2.Anxiety -Zoloft 100 mg daily discuss 3.ADHD combination discuss and educated on stimualtes and non- stimulates will add Straterra 25 mg daily in am for 1 week then increase Straterra 40 mg daily in am no control substance prescribed by [facility] r/t cannabis use ANA-2 TEST partial completed 01/20/24- complete the ANA-2 test for results 01/27/24 ANA-2 results ADHD combination 4. Cannabis use no control substance presribed by [facility] Reinforce the importance of avoiding recreational drug use due to potential neurotoxicity and interactions with prescribed medications. http__s://www.ni mh.nih.gov/healt h/topics/mental- health-medicatio ns http__s://www.na mi.org/About-Men ariadna-Illness/Alicia tments/Mental-He alth-Medications Recommend decrease/stop cannabis use as it may be negatively impacting mood, motivation, anxiety, sleep, focus; can also contribute to development of psychosis 5. elevated blood pressure monitor B/P- refer to PCP heart healthy diet and excise limit salt and caffiene monitor B/P educated on healthy B/P 120/80 not on B/P rx refer to PCP with B/P [facility] educated on all medications, benefits, side effects and risk, and educated on depression, anxiety, and ADHD, mood d/o and educated on compliance of medications, metabolic and movement d/o education appointment is, continue therapy discussion with patient about course of treatment and patient instructions. education on serotonin syndrome SSRI/SNRI side effects discussed including but not limited to, gastric upset, nausea, vomiting, diarrhea and/or constipation, weight changes, sexual side effects including loss of libido, increased suicidal thoughts/behavio rs in children and young adults, and serotonin syndrome. Second generation antipsychotics (SGAs) have metabolic syndrome issues with weight gain, increase in prolactin, increased waist circumference, increased lipids, and increased glucose. Thus routine monitoring of weight, metabolic labs, etc. is indicated. A general rank ordering of antipsychotics that have the greatest to the least risk of metabolic effects is olanzapine, quetiapine, risperidone, ziprasidone, and aripiprazole. However, weight gain can occur with all of these drugs and considerable variability exists among patients receiving the same drug regarding the risk of metabolic effects. Anti-psychotic agents not only increase the risk of metabolic disorder, they also increase the risk of CVA, akathisia, and movement disorders including EPS or tardive dyskinesia (more common with first generation antipsychotics) and more. Medication Management and Follow-Up - Plan: - Schedule follow-up appointments every 1-3 months to monitor the patient's response to the medication regimen. - Patient educated on all medications including potential benefits, side effects, risks. Educated on proper dosing schedule and importance of compliance 06/07/2024 JED (generalized anxiety disorder) (ICD-10 - F41.1) Learning About Generalized Anxiety Disorder material was published, Generalized Anxiety Disorder: Care Instructions material was published, Learning About Anxiety Disorders material was published, Generalized Anxiety Disorder: Care Instructions material was published, Learning About Generalized Anxiety Disorder material was published, Learning About Anxiety Disorders material was published 1.Bipolar II- Discuss and educated on rx options- may switch to Caplyta or Vraylar next visit pateint is expressing Akathisia in legs - r/o Abilify will decrease Abilify to 2.5 mg at bedtime Abilify 2.5 mg at bedtime- no refill needed today- has 5 mg dose at home to split - no refill needed refer to therapy- will schedule [facility]- patient cxl appt, 2.Anxiety -Zoloft 100 mg daily discuss- no refill needed today 3.ADHD combination discuss and educated on stimualtes and non- stimulates Straterra 40 mg daily in am- no refill needed no control substance prescribed by [facility] r/t cannabis use ANA-2 TEST partial completed 01/20/24- complete the ANA-2 test for results 01/27/24 ANA-2 results ADHD combination 4. Cannabis use no control substance presribed by [facility] Reinforce the importance of avoiding recreational drug use due to potential neurotoxicity and interactions with prescribed medications. http__s://www.ni .nih.gov/healt h/topics/mental- health-medicatio ns http__s://www.na mi.org/About-Men ariadna-Illness/Alicia tments/Mental-He alth-Medications Recommend decrease/stop cannabis use as it may be negatively impacting mood, motivation, anxiety, sleep, focus; can also contribute to development of psychosis 5. hx elevated blood pressure- stable today monitor B/P- see PCP- no B/P rx heart healthy diet and excise limit salt and caffiene monitor B/P educated on healthy B/P 120/80 not on B/P rx PCP with B/P [facility] educated on all medications, benefits, side effects and risk, and educated on depression, anxiety, and ADHD, mood d/o and educated on compliance of medications, metabolic and movement d/o education appointment is, continue therapy discussion with patient about course of treatment and patient instructions. education on serotonin syndrome SSRI/SNRI side effects discussed including but not limited to, gastric upset, nausea, vomiting, diarrhea and/or constipation, weight changes, sexual side effects including loss of libido, increased suicidal thoughts/behavio rs in children and young adults, and serotonin syndrome. Second generation antipsychotics (SGAs) have metabolic syndrome issues with weight gain, increase in prolactin, increased waist circumference, increased lipids, and increased glucose. Thus routine monitoring of weight, metabolic labs, etc. is indicated. A general rank ordering of antipsychotics that have the greatest to the least risk of metabolic effects is olanzapine, quetiapine, risperidone, ziprasidone, and aripiprazole. However, weight gain can occur with all of these drugs and considerable variability exists among patients receiving the same drug regarding the risk of metabolic effects. Anti-psychotic agents not only increase the risk of metabolic disorder, they also increase the risk of CVA, akathisia, and movement disorders including EPS or tardive dyskinesia (more common with first generation antipsychotics) and more. Medication Management and Follow-Up - Plan: - Schedule follow-up appointments every 1-3 months to monitor the patient's response to the medication regimen. - Patient educated on all medications including potential benefits, side effects, risks. Educated on proper dosing schedule and importance of compliance 03/05/2024 Hypertension, unspecified type (ICD-10 - I10) High Blood Pressure: Care Instructions material was published, Learning About High Blood Pressure material was published 1.Bipolar II- Discuss and educated on rx options Abilify 5 mg at bedtime- no refill needed today refer to therapy- will schedule [facility]- patient cxl appt, 2.Anxiety -Zoloft 100 mg daily discuss- no refill needed today 3.ADHD combination discuss and educated on stimualtes and non- stimulates Straterra 40 mg daily in am no control substance prescribed by [facility] r/t cannabis use ANA-2 TEST partial completed 01/20/24- complete the ANA-2 test for results 01/27/24 ANA-2 results ADHD combination 4. Cannabis use no control substance presribed by [facility] Reinforce the importance of avoiding recreational drug use due to potential neurotoxicity and interactions with prescribed medications. http__s://www.ni .nih.gov/healt h/topics/mental- health-medicatio ns http__s://www.na mi.org/About-Men ariadna-Illness/Alicia tments/Mental-He alth-Medications Recommend decrease/stop cannabis use as it may be negatively impacting mood, motivation, anxiety, sleep, focus; can also contribute to development of psychosis 5. elevated blood pressure monitor B/P- refer to PCP heart healthy diet and excise limit salt and caffiene monitor B/P educated on healthy B/P 120/80 not on B/P rx PCP with B/P [facility] educated on all medications, benefits, side effects and risk, and educated on depression, anxiety, and ADHD, mood d/o and educated on compliance of medications, metabolic and movement d/o education appointment is, continue therapy discussion with patient about course of treatment and patient instructions. education on serotonin syndrome SSRI/SNRI side effects discussed including but not limited to, gastric upset, nausea, vomiting, diarrhea and/or constipation, weight changes, sexual side effects including loss of libido, increased suicidal thoughts/behavio rs in children and young adults, and serotonin syndrome. Second generation antipsychotics (SGAs) have metabolic syndrome issues with weight gain, increase in prolactin, increased waist circumference, increased lipids, and increased glucose. Thus routine monitoring of weight, metabolic labs, etc. is indicated. A general rank ordering of antipsychotics that have the greatest to the least risk of metabolic effects is olanzapine, quetiapine, risperidone, ziprasidone, and aripiprazole. However, weight gain can occur with all of these drugs and considerable variability exists among patients receiving the same drug regarding the risk of metabolic effects. Anti-psychotic agents not only increase the risk of metabolic disorder, they also increase the risk of CVA, akathisia, and movement disorders including EPS or tardive dyskinesia (more common with first generation antipsychotics) and more. Medication Management and Follow-Up - Plan: - Schedule follow-up appointments every 1-3 months to monitor the patient's response to the medication regimen. - Patient educated on all medications including potential benefits, side effects, risks. Educated on proper dosing schedule and importance of compliance 02/07/2024 Hypertension, unspecified type (ICD-10 - I10) High Blood Pressure: Care Instructions material was published, Learning About High Blood Pressure material was published 1.Bipolar II- Discuss and educated on rx options Abilify 5 mg at bedtime refer to therapy- will schedule [facility] 2.Anxiety -Zoloft 100 mg daily discuss 3.ADHD combination discuss and educated on stimualtes and non- stimulates will add Straterra 25 mg daily in am for 1 week then increase Straterra 40 mg daily in am no control substance prescribed by [facility] r/t cannabis use ANA-2 TEST partial completed 01/20/24- complete the ANA-2 test for results 01/27/24 ANA-2 results ADHD combination 4. Cannabis use no control substance presribed by [facility] Reinforce the importance of avoiding recreational drug use due to potential neurotoxicity and interactions with prescribed medications. http__s://www.ni mh.nih.gov/healt h/topics/mental- health-medicatio ns http__s://www.na mi.org/About-Men ariadna-Illness/Alicia ortegants/Mental-He alth-Medications Recommend decrease/stop cannabis use as it may be negatively impacting mood, motivation, anxiety, sleep, focus; can also contribute to development of psychosis 5. elevated blood pressure monitor B/P- refer to PCP heart healthy diet and excise limit salt and caffiene monitor B/P educated on healthy B/P 120/80 not on B/P rx refer to PCP with B/P [facility] educated on all medications, benefits, side effects and risk, and educated on depression, anxiety, and ADHD, mood d/o and educated on compliance of medications, metabolic and movement d/o education appointment is, continue therapy discussion with patient about course of treatment and patient instructions. education on serotonin syndrome SSRI/SNRI side effects discussed including but not limited to, gastric upset, nausea, vomiting, diarrhea and/or constipation, weight changes, sexual side effects including loss of libido, increased suicidal thoughts/behavio rs in children and young adults, and serotonin syndrome. Second generation antipsychotics (SGAs) have metabolic syndrome issues with weight gain, increase in prolactin, increased waist circumference, increased lipids, and increased glucose. Thus routine monitoring of weight, metabolic labs, etc. is indicated. A general rank ordering of antipsychotics that have the greatest to the least risk of metabolic effects is olanzapine, quetiapine, risperidone, ziprasidone, and aripiprazole. However, weight gain can occur with all of these drugs and considerable variability exists among patients receiving the same drug regarding the risk of metabolic effects. Anti-psychotic agents not only increase the risk of metabolic disorder, they also increase the risk of CVA, akathisia, and movement disorders including EPS or tardive dyskinesia (more common with first generation antipsychotics) and more. Medication Management and Follow-Up - Plan: - Schedule follow-up appointments every 1-3 months to monitor the patient's response to the medication regimen. - Patient educated on all medications including potential benefits, side effects, risks. Educated on proper dosing schedule and importance of compliance 01/27/2024 Hypertension, unspecified type (ICD-10 - I10) Bipolar II- Discuss and educated on rx options Abilify 5 mg at bedtime no refill needed refer to therapy- will schedule [facility] Anxiety -Zoloft 100 mg daily discuss no refill needed Unable to concentrate- ANA-2 TEST partial completed 01/20/24- will complete the ANA-2 test for results 01/27/24 monitor B/P- refer to PCP heart healthy diet and excise limit salt and caffiene monitor B/P educated on healthy B/P 120/80 not on B/P rx refer to PCP with B/P [facility] educated on all medications, benefits, side effects and risk, and educated on depression, anxiety, and ADHD, mood d/o and educated on compliance of medications, metabolic and movement d/o education appointment is, continue therapy discussion with patient about course of treatment and patient instructions. education on serotonin syndrome SSRI/SNRI side effects discussed including but not limited to, gastric upset, nausea, vomiting, diarrhea and/or constipation, weight changes, sexual side effects including loss of libido, increased suicidal thoughts/behavio rs in children and young adults, and serotonin syndrome. Second generation antipsychotics (SGAs) have metabolic syndrome issues with weight gain, increase in prolactin, increased waist circumference, increased lipids, and increased glucose. Thus routine monitoring of weight, metabolic labs, etc. is indicated. A general rank ordering of antipsychotics that have the greatest to the least risk of metabolic effects is olanzapine, quetiapine, risperidone, ziprasidone, and aripiprazole. However, weight gain can occur with all of these drugs and considerable variability exists among patients receiving the same drug regarding the risk of metabolic effects. Anti-psychotic agents not only increase the risk of metabolic disorder, they also increase the risk of CVA, akathisia, and movement disorders including EPS or tardive dyskinesia (more common with first generation antipsychotics) and more. Medication Management and Follow-Up - Plan: - Schedule follow-up appointments every 2-3 months to monitor the patient's response to the medication regimen. - Reinforce the importance of avoiding recreational drug use due to potential neurotoxicity and interactions with prescribed medications. http_s://www.nim h.nih.gov/health /topics/mental-h ealth-medication s http_s://www.nam i.org/About-Ment al-Illness/Treat ments/Mental-Hea lth-Medications Recommend decrease/stop cannabis use as it may be negatively impacting mood, motivation, anxiety, sleep, focus; can also contribute to development of psychosis Patient educated on all medications including potential benefits, side effects, risks. Educated on proper dosing schedule and importance of compliance 01/27/2024 Bipolar II disorder (ICD-10 - F31.81) Bipolar Disorder: Care Instructions material was published, Learning About Movement Disorders From Antipsychotic Medicines material was published, Learning About Mood Disorders material was published, Learning About How to Get Help During a Mental Health Crisis material was published Bipolar II- Discuss and educated on rx options Abilify 5 mg at bedtime no refill needed refer to therapy- will schedule [facility] Anxiety -Zoloft 100 mg daily discuss no refill needed Unable to concentrate- ANA-2 TEST partial completed 01/20/24- will complete the ANA-2 test for results 01/27/24 monitor B/P- refer to PCP heart healthy diet and excise limit salt and caffiene monitor B/P educated on healthy B/P 120/80 not on B/P rx refer to PCP with B/[facility] educated on all medications, benefits, side effects and risk, and educated on depression, anxiety, and ADHD, mood d/o and educated on compliance of medications, metabolic and movement d/o education appointment is, continue therapy discussion with patient about course of treatment and patient instructions. education on serotonin syndrome SSRI/SNRI side effects discussed including but not limited to, gastric upset, nausea, vomiting, diarrhea and/or constipation, weight changes, sexual side effects including loss of libido, increased suicidal thoughts/behavio rs in children and young adults, and serotonin syndrome. Second generation antipsychotics (SGAs) have metabolic syndrome issues with weight gain, increase in prolactin, increased waist circumference, increased lipids, and increased glucose. Thus routine monitoring of weight, metabolic labs, etc. is indicated. A general rank ordering of antipsychotics that have the greatest to the least risk of metabolic effects is olanzapine, quetiapine, risperidone, ziprasidone, and aripiprazole. However, weight gain can occur with all of these drugs and considerable variability exists among patients receiving the same drug regarding the risk of metabolic effects. Anti-psychotic agents not only increase the risk of metabolic disorder, they also increase the risk of CVA, akathisia, and movement disorders including EPS or tardive dyskinesia (more common with first generation antipsychotics) and more. Medication Management and Follow-Up - Plan: - Schedule follow-up appointments every 2-3 months to monitor the patient's response to the medication regimen. - Reinforce the importance of avoiding recreational drug use due to potential neurotoxicity and interactions with prescribed medications. http_s://www.nim h.nih.gov/health /topics/mental-h ealth-medication s http_s://www.nam i.org/About-Ment al-Illness/Treat ments/Mental-Hea lth-Medications Recommend decrease/stop cannabis use as it may be negatively impacting mood, motivation, anxiety, sleep, focus; can also contribute to development of psychosis Patient educated on all medications including potential benefits, side effects, risks. Educated on proper dosing schedule and importance of compliance 12/26/2023 Hypertension, unspecified type (ICD-10 - I10) Bipolar II- Discuss and educated on rx options Abilify 5 mg at bedtime refill sent 10/04/23 90 days refer to therapy- will schedule [facility] Anxiety -Zoloft 100 mg daily discuss rx sent 90 days Unable to concentrate- schedule ANA-2 TEST monitor B/P- refer to PCP heart healthy diet and excise limit salt and caffiene monitor B/P educated on healthy B/P 120/80 not on B/P rx refer to PCP with B/[facility] educated on all medications, benefits, side effects and risk, and educated on depression, anxiety, and ADHD, mood d/o and educated on compliance of medications, metabolic and movement d/o education appointment is, continue therapy discussion with patient about course of treatment and patient instructions. education on serotonin syndrome SSRI/SNRI side effects discussed including but not limited to, gastric upset, nausea, vomiting, diarrhea and/or constipation, weight changes, sexual side effects including loss of libido, increased suicidal thoughts/behavio rs in children and young adults, and serotonin syndrome. Second generation antipsychotics (SGAs) have metabolic syndrome issues with weight gain, increase in prolactin, increased waist circumference, increased lipids, and increased glucose. Thus routine monitoring of weight, metabolic labs, etc. is indicated. A general rank ordering of antipsychotics that have the greatest to the least risk of metabolic effects is olanzapine, quetiapine, risperidone, ziprasidone, and aripiprazole. However, weight gain can occur with all of these drugs and considerable variability exists among patients receiving the same drug regarding the risk of metabolic effects. Anti-psychotic agents not only increase the risk of metabolic disorder, they also increase the risk of CVA, akathisia, and movement disorders including EPS or tardive dyskinesia (more common with first generation antipsychotics) and more. Medication Management and Follow-Up - Plan: - Schedule follow-up appointments every 2-3 months to monitor the patient's response to the medication regimen. - Reinforce the importance of avoiding recreational drug use due to potential neurotoxicity and interactions with prescribed medications. http_s://www.nim h.nih.gov/health /topics/mental-h ealth-medication s http_s://www.nam i.org/About-Ment al-Illness/Treat ments/Mental-Hea lth-Medications Recommend decrease/stop cannabis use as it may be negatively impacting mood, motivation, anxiety, sleep, focus; can also contribute to development of psychosis Patient educated on all medications including potential benefits, side effects, risks. Educated on proper dosing schedule and importance of compliance 10/04/2023 JED (generalized anxiety disorder) (ICD-10 - F41.1) Learning About Generalized Anxiety Disorder material was published, Generalized Anxiety Disorder: Care Instructions material was published, Learning About Anxiety Disorders material was published Bipolar II- Discuss and educated on rx options Abilify 5 mg at bedtime refill sent 10/04/23 90 days refer to therapy Anxiety -Zoloft 100 mg daily discuss rx sent 90 days [facility] educated on all medications, benefits, side effects and risk, and educated on depression, anxiety, and ADHD, mood d/o and educated on compliance of medications, metabolic and movement d/o education appointment is, continue therapy discussion with patient about course of treatment and patient instructions. education on serotonin syndrome SSRI/SNRI side effects discussed including but not limited to, gastric upset, nausea, vomiting, diarrhea and/or constipation, weight changes, sexual side effects including loss of libido, increased suicidal thoughts/behavio rs in children and young adults, and serotonin syndrome. Second generation antipsychotics (SGAs) have metabolic syndrome issues with weight gain, increase in prolactin, increased waist circumference, increased lipids, and increased glucose. Thus routine monitoring of weight, metabolic labs, etc. is indicated. A general rank ordering of antipsychotics that have the greatest to the least risk of metabolic effects is olanzapine, quetiapine, risperidone, ziprasidone, and aripiprazole. However, weight gain can occur with all of these drugs and considerable variability exists among patients receiving the same drug regarding the risk of metabolic effects. Anti-psychotic agents not only increase the risk of metabolic disorder, they also increase the risk of CVA, akathisia, and movement disorders including EPS or tardive dyskinesia (more common with first generation antipsychotics) and more. Medication Management and Follow-Up - Plan: - Schedule follow-up appointments every 2-3 months to monitor the patient's response to the medication regimen. - Reinforce the importance of avoiding recreational drug use due to potential neurotoxicity and interactions with prescribed medications. http_s://www.nim .nih.gov/health /topics/mental-h ealth-medication s http_s://www.nam i.org/About-Ment al-Illness/Treat ments/Mental-Hea lth-Medications Recommend decrease/stop cannabis use as it may be negatively impacting mood, motivation, anxiety, sleep, focus; can also contribute to development of psychosis Patient educated on all medications including potential benefits, side effects, risks. Educated on proper dosing schedule and importance of compliance 12/26/2023 Unable to concentrate (ICD-10 - R41.840) Bipolar II- Discuss and educated on rx options Abilify 5 mg at bedtime refill sent 10/04/23 90 days refer to therapy- will schedule [facility] Anxiety -Zoloft 100 mg daily discuss rx sent 90 days Unable to concentrate- schedule ANA-2 TEST monitor B/P- refer to PCP heart healthy diet and excise limit salt and caffiene monitor B/P educated on healthy B/P 120/80 not on B/P rx refer to PCP with B/[facility] educated on all medications, benefits, side effects and risk, and educated on depression, anxiety, and ADHD, mood d/o and educated on compliance of medications, metabolic and movement d/o education appointment is, continue therapy discussion with patient about course of treatment and patient instructions. education on serotonin syndrome SSRI/SNRI side effects discussed including but not limited to, gastric upset, nausea, vomiting, diarrhea and/or constipation, weight changes, sexual side effects including loss of libido, increased suicidal thoughts/behavio rs in children and young adults, and serotonin syndrome. Second generation antipsychotics (SGAs) have metabolic syndrome issues with weight gain, increase in prolactin, increased waist circumference, increased lipids, and increased glucose. Thus routine monitoring of weight, metabolic labs, etc. is indicated. A general rank ordering of antipsychotics that have the greatest to the least risk of metabolic effects is olanzapine, quetiapine, risperidone, ziprasidone, and aripiprazole. However, weight gain can occur with all of these drugs and considerable variability exists among patients receiving the same drug regarding the risk of metabolic effects. Anti-psychotic agents not only increase the risk of metabolic disorder, they also increase the risk of CVA, akathisia, and movement disorders including EPS or tardive dyskinesia (more common with first generation antipsychotics) and more. Medication Management and Follow-Up - Plan: - Schedule follow-up appointments every 2-3 months to monitor the patient's response to the medication regimen. - Reinforce the importance of avoiding recreational drug use due to potential neurotoxicity and interactions with prescribed medications. http_s://www.[facility].nih.gov/health /topics/mental-h ealth-medication s http_s://www.nam i.org/About-Ment al-Illness/Treat ments/Mental-Hea lth-Medications Recommend decrease/stop cannabis use as it may be negatively impacting mood, motivation, anxiety, sleep, focus; can also contribute to development of psychosis Patient educated on all medications including potential benefits, side effects, risks. Educated on proper dosing schedule and importance of compliance 01/27/2024 Unable to concentrate (ICD-10 - R41.840) Bipolar II- Discuss and educated on rx options Abilify 5 mg at bedtime no refill needed refer to therapy- will schedule [facility] Anxiety -Zoloft 100 mg daily discuss no refill needed Unable to concentrate- ANA-2 TEST partial completed 01/20/24- will complete the ANA-2 test for results 01/27/24 monitor B/P- refer to PCP heart healthy diet and excise limit salt and caffiene monitor B/P educated on healthy B/P 120/80 not on B/P rx refer to PCP with B/P [facility] educated on all medications, benefits, side effects and risk, and educated on depression, anxiety, and ADHD, mood d/o and educated on compliance of medications, metabolic and movement d/o education appointment is, continue therapy discussion with patient about course of treatment and patient instructions. education on serotonin syndrome SSRI/SNRI side effects discussed including but not limited to, gastric upset, nausea, vomiting, diarrhea and/or constipation, weight changes, sexual side effects including loss of libido, increased suicidal thoughts/behavio rs in children and young adults, and serotonin syndrome. Second generation antipsychotics (SGAs) have metabolic syndrome issues with weight gain, increase in prolactin, increased waist circumference, increased lipids, and increased glucose. Thus routine monitoring of weight, metabolic labs, etc. is indicated. A general rank ordering of antipsychotics that have the greatest to the least risk of metabolic effects is olanzapine, quetiapine, risperidone, ziprasidone, and aripiprazole. However, weight gain can occur with all of these drugs and considerable variability exists among patients receiving the same drug regarding the risk of metabolic effects. Anti-psychotic agents not only increase the risk of metabolic disorder, they also increase the risk of CVA, akathisia, and movement disorders including EPS or tardive dyskinesia (more common with first generation antipsychotics) and more. Medication Management and Follow-Up - Plan: - Schedule follow-up appointments every 2-3 months to monitor the patient's response to the medication regimen. - Reinforce the importance of avoiding recreational drug use due to potential neurotoxicity and interactions with prescribed medications. http_s://www.nim h.nih.gov/health /topics/mental-h ealth-medication s http_s://www.nam i.org/About-Ment al-Illness/Treat ments/Mental-Hea lth-Medications Recommend decrease/stop cannabis use as it may be negatively impacting mood, motivation, anxiety, sleep, focus; can also contribute to development of psychosis Patient educated on all medications including potential benefits, side effects, risks. Educated on proper dosing schedule and importance of compliance 03/05/2024 Bipolar II disorder (ICD-10 - F31.81) Bipolar Disorder: Care Instructions material was published, Learning About Movement Disorders From Antipsychotic Medicines material was published, Learning About Mood Disorders material was published, Learning About How to Get Help During a Mental Health Crisis material was published, Bipolar Disorder: Care Instructions material was published, Learning About Mood Disorders material was published, Learning About Movement Disorders From Antipsychotic Medicines material was published, Learning About How to Get Help During a Mental Health Crisis material was published 1.Bipolar II- Discuss and educated on rx options Abilify 5 mg at bedtime- no refill needed today refer to therapy- will schedule [facility]- patient cxl appt, 2.Anxiety -Zoloft 100 mg daily discuss- no refill needed today 3.ADHD combination discuss and educated on stimualtes and non- stimulates Straterra 40 mg daily in am no control substance prescribed by [facility] r/t cannabis use AAN-2 TEST partial completed 01/20/24- complete the ANA-2 test for results 01/27/24 ANA-2 results ADHD combination 4. Cannabis use no control substance presribed by [facility] Reinforce the importance of avoiding recreational drug use due to potential neurotoxicity and interactions with prescribed medications. http__s://www.ni .nih.gov/healt h/topics/mental- health-medicatio ns http__s://www.na mi.org/About-Men ariadna-Illness/Alicia tments/Mental-He alth-Medications Recommend decrease/stop cannabis use as it may be negatively impacting mood, motivation, anxiety, sleep, focus; can also contribute to development of psychosis 5. elevated blood pressure monitor B/P- refer to PCP heart healthy diet and excise limit salt and caffiene monitor B/P educated on healthy B/P 120/80 not on B/P rx PCP with B/P [facility] educated on all medications, benefits, side effects and risk, and educated on depression, anxiety, and ADHD, mood d/o and educated on compliance of medications, metabolic and movement d/o education appointment is, continue therapy discussion with patient about course of treatment and patient instructions. education on serotonin syndrome SSRI/SNRI side effects discussed including but not limited to, gastric upset, nausea, vomiting, diarrhea and/or constipation, weight changes, sexual side effects including loss of libido, increased suicidal thoughts/behavio rs in children and young adults, and serotonin syndrome. Second generation antipsychotics (SGAs) have metabolic syndrome issues with weight gain, increase in prolactin, increased waist circumference, increased lipids, and increased glucose. Thus routine monitoring of weight, metabolic labs, etc. is indicated. A general rank ordering of antipsychotics that have the greatest to the least risk of metabolic effects is olanzapine, quetiapine, risperidone, ziprasidone, and aripiprazole. However, weight gain can occur with all of these drugs and considerable variability exists among patients receiving the same drug regarding the risk of metabolic effects. Anti-psychotic agents not only increase the risk of metabolic disorder, they also increase the risk of CVA, akathisia, and movement disorders including EPS or tardive dyskinesia (more common with first generation antipsychotics) and more. Medication Management and Follow-Up - Plan: - Schedule follow-up appointments every 1-3 months to monitor the patient's response to the medication regimen. - Patient educated on all medications including potential benefits, side effects, risks. Educated on proper dosing schedule and importance of compliance 02/07/2024 ADHD (attention deficit hyperactivity disorder), combined type (ICD-10 - F90.2) Attention Deficit Hyperactivity Disorder (ADHD) in Adults: Care Instructions material was published, Learning About Attention Deficit Hyperactivity Disorder (ADHD) in Adults material was published, Learning About Stimulant Medicines for Attention Deficit Hyperactivity Disorder (ADHD) material was published 1.Bipolar II- Discuss and educated on rx options Abilify 5 mg at bedtime refer to therapy- will schedule [facility] 2.Anxiety -Zoloft 100 mg daily discuss 3.ADHD combination discuss and educated on stimualtes and non- stimulates will add Straterra 25 mg daily in am for 1 week then increase Straterra 40 mg daily in am no control substance prescribed by [facility] r/t cannabis use ANA-2 TEST partial completed 01/20/24- complete the ANA-2 test for results 01/27/24 ANA-2 results ADHD combination 4. Cannabis use no control substance presribed by [facility] Reinforce the importance of avoiding recreational drug use due to potential neurotoxicity and interactions with prescribed medications. http__s://www.ni .nih.gov/healt h/topics/mental- health-medicatio ns http__s://www.na mi.org/About-Men ariadna-Illness/Alicia tments/Mental-He alth-Medications Recommend decrease/stop cannabis use as it may be negatively impacting mood, motivation, anxiety, sleep, focus; can also contribute to development of psychosis 5. elevated blood pressure monitor B/P- refer to PCP heart healthy diet and excise limit salt and caffiene monitor B/P educated on healthy B/P 120/80 not on B/P rx refer to PCP with B/P [facility] educated on all medications, benefits, side effects and risk, and educated on depression, anxiety, and ADHD, mood d/o and educated on compliance of medications, metabolic and movement d/o education appointment is, continue therapy discussion with patient about course of treatment and patient instructions. education on serotonin syndrome SSRI/SNRI side effects discussed including but not limited to, gastric upset, nausea, vomiting, diarrhea and/or constipation, weight changes, sexual side effects including loss of libido, increased suicidal thoughts/behavio rs in children and young adults, and serotonin syndrome. Second generation antipsychotics (SGAs) have metabolic syndrome issues with weight gain, increase in prolactin, increased waist circumference, increased lipids, and increased glucose. Thus routine monitoring of weight, metabolic labs, etc. is indicated. A general rank ordering of antipsychotics that have the greatest to the least risk of metabolic effects is olanzapine, quetiapine, risperidone, ziprasidone, and aripiprazole. However, weight gain can occur with all of these drugs and considerable variability exists among patients receiving the same drug regarding the risk of metabolic effects. Anti-psychotic agents not only increase the risk of metabolic disorder, they also increase the risk of CVA, akathisia, and movement disorders including EPS or tardive dyskinesia (more common with first generation antipsychotics) and more. Medication Management and Follow-Up - Plan: - Schedule follow-up appointments every 1-3 months to monitor the patient's response to the medication regimen. - Patient educated on all medications including potential benefits, side effects, risks. Educated on proper dosing schedule and importance of compliance 03/05/2024 ADHD (attention deficit hyperactivity disorder), combined type (ICD-10 - F90.2) Attention Deficit Hyperactivity Disorder (ADHD) in Adults: Care Instructions material was published, Learning About Attention Deficit Hyperactivity Disorder (ADHD) in Adults material was published, Learning About Stimulant Medicines for Attention Deficit Hyperactivity Disorder (ADHD) material was published 1.Bipolar II- Discuss and educated on rx options Abilify 5 mg at bedtime- no refill needed today refer to therapy- will schedule [facility]- patient cxl appt, 2.Anxiety -Zoloft 100 mg daily discuss- no refill needed today 3.ADHD combination discuss and educated on stimualtes and non- stimulates Straterra 40 mg daily in am no control substance prescribed by [facility] r/t cannabis use ANA-2 TEST partial completed 01/20/24- complete the ANA-2 test for results 01/27/24 ANA-2 results ADHD combination 4. Cannabis use no control substance presribed by [facility] Reinforce the importance of avoiding recreational drug use due to potential neurotoxicity and interactions with prescribed medications. http__s://www.ni .nih.gov/healt h/topics/mental- health-medicatio ns http__s://www.na mi.org/About-Men ariadna-Illness/Alicia tments/Mental-He alth-Medications Recommend decrease/stop cannabis use as it may be negatively impacting mood, motivation, anxiety, sleep, focus; can also contribute to development of psychosis 5. elevated blood pressure monitor B/P- refer to PCP heart healthy diet and excise limit salt and caffiene monitor B/P educated on healthy B/P 120/80 not on B/P rx PCP with B/P [facility] educated on all medications, benefits, side effects and risk, and educated on depression, anxiety, and ADHD, mood d/o and educated on compliance of medications, metabolic and movement d/o education appointment is, continue therapy discussion with patient about course of treatment and patient instructions. education on serotonin syndrome SSRI/SNRI side effects discussed including but not limited to, gastric upset, nausea, vomiting, diarrhea and/or constipation, weight changes, sexual side effects including loss of libido, increased suicidal thoughts/behavio rs in children and young adults, and serotonin syndrome. Second generation antipsychotics (SGAs) have metabolic syndrome issues with weight gain, increase in prolactin, increased waist circumference, increased lipids, and increased glucose. Thus routine monitoring of weight, metabolic labs, etc. is indicated. A general rank ordering of antipsychotics that have the greatest to the least risk of metabolic effects is olanzapine, quetiapine, risperidone, ziprasidone, and aripiprazole. However, weight gain can occur with all of these drugs and considerable variability exists among patients receiving the same drug regarding the risk of metabolic effects. Anti-psychotic agents not only increase the risk of metabolic disorder, they also increase the risk of CVA, akathisia, and movement disorders including EPS or tardive dyskinesia (more common with first generation antipsychotics) and more. Medication Management and Follow-Up - Plan: - Schedule follow-up appointments every 1-3 months to monitor the patient's response to the medication regimen. - Patient educated on all medications including potential benefits, side effects, risks. Educated on proper dosing schedule and importance of compliance 06/07/2024 Hypertension, unspecified type (ICD-10 - I10) High Blood Pressure: Care Instructions material was published, Learning About High Blood Pressure material was published 1.Bipolar II- Discuss and educated on rx options- may switch to Caplyta or Vraylar next visit pateint is expressing Akathisia in legs - r/o Abilify will decrease Abilify to 2.5 mg at bedtime Abilify 2.5 mg at bedtime- no refill needed today- has 5 mg dose at home to split - no refill needed refer to therapy- will schedule [facility]- patient cxl appt, 2.Anxiety -Zoloft 100 mg daily discuss- no refill needed today 3.ADHD combination discuss and educated on stimualtes and non- stimulates Straterra 40 mg daily in am- no refill needed no control substance prescribed by [facility] r/t cannabis use ANA-2 TEST partial completed 01/20/24- complete the ANA-2 test for results 01/27/24 ANA-2 results ADHD combination 4. Cannabis use no control substance presribed by [facility] Reinforce the importance of avoiding recreational drug use due to potential neurotoxicity and interactions with prescribed medications. http__s://www.ni mh.nih.gov/healt h/topics/mental- health-medicatio ns http__s://www.na mi.org/About-Men ariadna-Illness/Alicia tments/Mental-He alth-Medications Recommend decrease/stop cannabis use as it may be negatively impacting mood, motivation, anxiety, sleep, focus; can also contribute to development of psychosis 5. hx elevated blood pressure- stable today monitor B/P- see PCP- no B/P rx heart healthy diet and excise limit salt and caffiene monitor B/P educated on healthy B/P 120/80 not on B/P rx PCP with B/P [facility] educated on all medications, benefits, side effects and risk, and educated on depression, anxiety, and ADHD, mood d/o and educated on compliance of medications, metabolic and movement d/o education appointment is, continue therapy discussion with patient about course of treatment and patient instructions. education on serotonin syndrome SSRI/SNRI side effects discussed including but not limited to, gastric upset, nausea, vomiting, diarrhea and/or constipation, weight changes, sexual side effects including loss of libido, increased suicidal thoughts/behavio rs in children and young adults, and serotonin syndrome. Second generation antipsychotics (SGAs) have metabolic syndrome issues with weight gain, increase in prolactin, increased waist circumference, increased lipids, and increased glucose. Thus routine monitoring of weight, metabolic labs, etc. is indicated. A general rank ordering of antipsychotics that have the greatest to the least risk of metabolic effects is olanzapine, quetiapine, risperidone, ziprasidone, and aripiprazole. However, weight gain can occur with all of these drugs and considerable variability exists among patients receiving the same drug regarding the risk of metabolic effects. Anti-psychotic agents not only increase the risk of metabolic disorder, they also increase the risk of CVA, akathisia, and movement disorders including EPS or tardive dyskinesia (more common with first generation antipsychotics) and more. Medication Management and Follow-Up - Plan: - Schedule follow-up appointments every 1-3 months to monitor the patient's response to the medication regimen. - Patient educated on all medications including potential benefits, side effects, risks. Educated on proper dosing schedule and importance of compliance 06/21/2024 Dietary counseling and surveillance (ICD-10 - Z71.3) Learning About Carbohydrate (Carb) Counting and Eating Out When You Have Diabetes material was published, Low Sodium Diet (2,000 Milligram): Care Instructions material was published, DASH Diet: Care Instructions material was published, Learning About Low-Fat Eating material was published, Counting Carbohydrates for Diabetes: Care Instructions material was published 1.Bipolar II- Discuss and educated on rx options- may switch to Caplyta pateint is expressing Akathisia in legs and restelss improved but still have daily and also in feet D/C Abilify 2.5 mg at bedtime- ADD Caplyta 10.5 mg in evening - sampls given educated on all rx refer to therapy- will schedule [facility]- patient cxl appt, 2.Anxiety -Zoloft 100 mg daily stable 3.ADHD combination discuss and educated on stimualtes and non- stimulates Straterra 40 mg daily in am- stable no control substance prescribed by [facility] r/t cannabis use ANA-2 TEST partial completed 01/20/24- complete the ANA-2 test for results 01/27/24 ANA-2 results ADHD combination 4. Cannabis use no control substance presribed by [facility] Reinforce the importance of avoiding recreational drug use due to potential neurotoxicity and interactions with prescribed medications. http__s://www.ni .nih.gov/healt h/topics/mental- health-medicatio ns http__s://www.na mi.org/About-Men ariadna-Illness/Alicia tments/Mental-He alth-Medications Recommend decrease/stop cannabis use as it may be negatively impacting mood, motivation, anxiety, sleep, focus; can also contribute to development of psychosis 5. hx elevated blood pressure- monitor B/P- see PCP- no B/P rx heart healthy diet and excise limit salt and caffiene monitor B/P educated on healthy B/P 120/80 not on B/P rx PCP with B/P [facility] educated on all medications, benefits, side effects and risk, and educated on depression, anxiety, and ADHD, mood d/o and educated on compliance of medications, metabolic and movement d/o education appointment is, continue therapy discussion with patient about course of treatment and patient instructions. education on serotonin syndrome SSRI/SNRI side effects discussed including but not limited to, gastric upset, nausea, vomiting, diarrhea and/or constipation, weight changes, sexual side effects including loss of libido, increased suicidal thoughts/behavio rs in children and young adults, and serotonin syndrome. Second generation antipsychotics (SGAs) have metabolic syndrome issues with weight gain, increase in prolactin, increased waist circumference, increased lipids, and increased glucose. Thus routine monitoring of weight, metabolic labs, etc. is indicated. A general rank ordering of antipsychotics that have the greatest to the least risk of metabolic effects is olanzapine, quetiapine, risperidone, ziprasidone, and aripiprazole. However, weight gain can occur with all of these drugs and considerable variability exists among patients receiving the same drug regarding the risk of metabolic effects. Anti-psychotic agents not only increase the risk of metabolic disorder, they also increase the risk of CVA, akathisia, and movement disorders including EPS or tardive dyskinesia (more common with first generation antipsychotics) and more. Medication Management and Follow-Up - Plan: - Schedule follow-up appointments every 1-3 months to monitor the patient's response to the medication regimen. - Patient educated on all medications including potential benefits, side effects, risks. Educated on proper dosing schedule and importance of compliance 07/26/2024 Encounter for screening for cardiovascular disorders (ICD-10 - Z13.6) 1.Bipolar II- Discuss and educated on rx options- Caplyta Caplyta 21 mg in evening - samples given last visit and rx filled - no refill needed today educated on all rx refer to therapy- will schedule [facility]- patient cxl appt,-went once and didn't go back 2.Anxiety - decrease Zoloft 50 mg daily- r/o restless legs and feet - no refill needed today will split 100 mg dose has at home stable 3.ADHD combination discuss and educated on stimualtes and non- stimulates Straterra 40 mg daily in am- stable no control substance prescribed by [facility] r/t cannabis use ANA-2 TEST partial completed 01/20/24- complete the ANA-2 test for results 01/27/24 ANA-2 results ADHD combination 4. Cannabis use no control substance presribed by [facility] Reinforce the importance of avoiding recreational drug use due to potential neurotoxicity and interactions with prescribed medications. http__s://www.ni .nih.gov/healt h/topics/mental- health-medicatio ns http__s://www.na mi.org/About-Men ariadna-Illness/Alicia tments/Mental-He alth-Medications Recommend decrease/stop cannabis use as it may be negatively impacting mood, motivation, anxiety, sleep, focus; can also contribute to development of psychosis 5. hx elevated blood pressure- wnl monitor B/P- see PCP- no B/P rx heart healthy diet and excise limit salt and caffiene monitor B/P educated on healthy B/P 120/80 not on B/P rx PCP with B/P [facility] educated on all medications, benefits, side effects and risk, and educated on depression, anxiety, and ADHD, mood d/o and educated on compliance of medications, metabolic and movement d/o education appointment is, continue therapy discussion with patient about course of treatment and patient instructions. education on serotonin syndrome SSRI/SNRI side effects discussed including but not limited to, gastric upset, nausea, vomiting, diarrhea and/or constipation, weight changes, sexual side effects including loss of libido, increased suicidal thoughts/behavio rs in children and young adults, and serotonin syndrome. Second generation antipsychotics (SGAs) have metabolic syndrome issues with weight gain, increase in prolactin, increased waist circumference, increased lipids, and increased glucose. Thus routine monitoring of weight, metabolic labs, etc. is indicated. A general rank ordering of antipsychotics that have the greatest to the least risk of metabolic effects is olanzapine, quetiapine, risperidone, ziprasidone, and aripiprazole. However, weight gain can occur with all of these drugs and considerable variability exists among patients receiving the same drug regarding the risk of metabolic effects. Anti-psychotic agents not only increase the risk of metabolic disorder, they also increase the risk of CVA, akathisia, and movement disorders including EPS or tardive dyskinesia (more common with first generation antipsychotics) and more. Medication Management and Follow-Up - Plan: - Schedule follow-up appointments every 1-3 months to monitor the patient's response to the medication regimen. - Patient educated on all medications including potential benefits, side effects, risks. Educated on proper dosing schedule and importance of compliance 08/31/2024 Encounter for screening for cardiovascular disorders (ICD-10 - Z13.6) 1.Bipolar II- Discuss and educated on rx options- Caplyta Caplyta 21 mg in evening - - educated on all rx refer to therapy- will schedule [facility]- patient cxl appt,-went once and didn't go back 2.Anxiety - Zoloft 50 mg daily- improved restless legs and feet - no refill needed today stable 3.ADHD combination discuss and educated on stimualtes and non- stimulates Straterra 40 mg daily in am- stable no refill needed today no control substance prescribed by [facility] r/t cannabis use ANA-2 TEST partial completed 01/20/24- complete the ANA-2 test for results 01/27/24 ANA-2 results ADHD combination 4. Cannabis use no control substance presribed by [facility] Reinforce the importance of avoiding recreational drug use due to potential neurotoxicity and interactions with prescribed medications. http__s://www.ni mh.nih.gov/healt h/topics/mental- health-medicatio ns http__s://www.na mi.org/About-Men ariadna-Illness/Alicia tments/Mental-He alth-Medications Recommend decrease/stop cannabis use as it may be negatively impacting mood, motivation, anxiety, sleep, focus; can also contribute to development of psychosis 5. hx elevated blood pressure- wnl monitor B/P- see PCP- no B/P rx heart healthy diet and excise limit salt and caffiene monitor B/P educated on healthy B/P 120/80 not on B/P rx PCP with B/P [facility] educated on all medications, benefits, side effects and risk, and educated on depression, anxiety, and ADHD, mood d/o and educated on compliance of medications, metabolic and movement d/o education appointment is, continue therapy discussion with patient about course of treatment and patient instructions. education on serotonin syndrome SSRI/SNRI side effects discussed including but not limited to, gastric upset, nausea, vomiting, diarrhea and/or constipation, weight changes, sexual side effects including loss of libido, increased suicidal thoughts/behavio rs in children and young adults, and serotonin syndrome. Second generation antipsychotics (SGAs) have metabolic syndrome issues with weight gain, increase in prolactin, increased waist circumference, increased lipids, and increased glucose. Thus routine monitoring of weight, metabolic labs, etc. is indicated. A general rank ordering of antipsychotics that have the greatest to the least risk of metabolic effects is olanzapine, quetiapine, risperidone, ziprasidone, and aripiprazole. However, weight gain can occur with all of these drugs and considerable variability exists among patients receiving the same drug regarding the risk of metabolic effects. Anti-psychotic agents not only increase the risk of metabolic disorder, they also increase the risk of CVA, akathisia, and movement disorders including EPS or tardive dyskinesia (more common with first generation antipsychotics) and more. Medication Management and Follow-Up - Plan: - Schedule follow-up appointments every 1-3 months to monitor the patient's response to the medication regimen. - Patient educated on all medications including potential benefits, side effects, risks. Educated on proper dosing schedule and importance of compliance 07/20/2024 Dietary counseling and surveillance (ICD-10 - Z71.3) Learning About Carbohydrate (Carb) Counting and Eating Out When You Have Diabetes material was published, Low Sodium Diet (2,000 Milligram): Care Instructions material was published, DASH Diet: Care Instructions material was published, Learning About Low-Fat Eating material was published, Counting Carbohydrates for Diabetes: Care Instructions material was published 1.Bipolar II- Discuss and educated on rx options- Caplyta INCREASE Caplyta 21 mg in evening - samples given educated on all rx refer to therapy- will schedule [facility]- patient cxl appt,-went once and didn't go back 2.Anxiety -Zoloft 100 mg daily stable 3.ADHD combination discuss and educated on stimualtes and non- stimulates Straterra 40 mg daily in am- stable no control substance prescribed by [facility] r/t cannabis use ANA-2 TEST partial completed 01/20/24- complete the ANA-2 test for results 01/27/24 ANA-2 results ADHD combination 4. Cannabis use no control substance presribed by [facility] Reinforce the importance of avoiding recreational drug use due to potential neurotoxicity and interactions with prescribed medications. http__s://www.ni .nih.gov/healt h/topics/mental- health-medicatio ns http__s://www.na mi.org/About-Men ariadna-Illness/Alicia tments/Mental-He alth-Medications Recommend decrease/stop cannabis use as it may be negatively impacting mood, motivation, anxiety, sleep, focus; can also contribute to development of psychosis 5. hx elevated blood pressure- monitor B/P- see PCP- no B/P rx heart healthy diet and excise limit salt and caffiene monitor B/P educated on healthy B/P 120/80 not on B/P rx PCP with B/P [facility] educated on all medications, benefits, side effects and risk, and educated on depression, anxiety, and ADHD, mood d/o and educated on compliance of medications, metabolic and movement d/o education appointment is, continue therapy discussion with patient about course of treatment and patient instructions. education on serotonin syndrome SSRI/SNRI side effects discussed including but not limited to, gastric upset, nausea, vomiting, diarrhea and/or constipation, weight changes, sexual side effects including loss of libido, increased suicidal thoughts/behavio rs in children and young adults, and serotonin syndrome. Second generation antipsychotics (SGAs) have metabolic syndrome issues with weight gain, increase in prolactin, increased waist circumference, increased lipids, and increased glucose. Thus routine monitoring of weight, metabolic labs, etc. is indicated. A general rank ordering of antipsychotics that have the greatest to the least risk of metabolic effects is olanzapine, quetiapine, risperidone, ziprasidone, and aripiprazole. However, weight gain can occur with all of these drugs and considerable variability exists among patients receiving the same drug regarding the risk of metabolic effects. Anti-psychotic agents not only increase the risk of metabolic disorder, they also increase the risk of CVA, akathisia, and movement disorders including EPS or tardive dyskinesia (more common with first generation antipsychotics) and more. Medication Management and Follow-Up - Plan: - Schedule follow-up appointments every 1-3 months to monitor the patient's response to the medication regimen. - Patient educated on all medications including potential benefits, side effects, risks. Educated on proper dosing schedule and importance of compliance 08/31/2024 Dietary counseling and surveillance (ICD-10 - Z71.3) Learning About Carbohydrate (Carb) Counting and Eating Out When You Have Diabetes material was published, Low Sodium Diet (2,000 Milligram): Care Instructions material was published, DASH Diet: Care Instructions material was published, Learning About Low-Fat Eating material was published, Counting Carbohydrates for Diabetes: Care Instructions material was published 1.Bipolar II- Discuss and educated on rx options- Caplyta Caplyta 21 mg in evening - - educated on all rx refer to therapy- will schedule [facility]- patient cxl appt,-went once and didn't go back 2.Anxiety - Zoloft 50 mg daily- improved restless legs and feet - no refill needed today stable 3.ADHD combination discuss and educated on stimualtes and non- stimulates Straterra 40 mg daily in am- stable no refill needed today no control substance prescribed by [facility] r/t cannabis use ANA-2 TEST partial completed 01/20/24- complete the ANA-2 test for results 01/27/24 ANA-2 results ADHD combination 4. Cannabis use no control substance presribed by [facility] Reinforce the importance of avoiding recreational drug use due to potential neurotoxicity and interactions with prescribed medications. http__s://www.ni mh.nih.gov/healt h/topics/mental- health-medicatio ns http__s://www.na mi.org/About-Men ariadna-Illness/Alicia tments/Mental-He alth-Medications Recommend decrease/stop cannabis use as it may be negatively impacting mood, motivation, anxiety, sleep, focus; can also contribute to development of psychosis 5. hx elevated blood pressure- wnl monitor B/P- see PCP- no B/P rx heart healthy diet and excise limit salt and caffiene monitor B/P educated on healthy B/P 120/80 not on B/P rx PCP with B/P Rose Patel educated on all medications, benefits, side effects and risk, and educated on depression, anxiety, and ADHD, mood d/o and educated on compliance of medications, metabolic and movement d/o education appointment is, continue therapy discussion with patient about course of treatment and patient instructions. education on serotonin syndrome SSRI/SNRI side effects discussed including but not limited to, gastric upset, nausea, vomiting, diarrhea and/or constipation, weight changes, sexual side effects including loss of libido, increased suicidal thoughts/behavio rs in children and young adults, and serotonin syndrome. Second generation antipsychotics (SGAs) have metabolic syndrome issues with weight gain, increase in prolactin, increased waist circumference, increased lipids, and increased glucose. Thus routine monitoring of weight, metabolic labs, etc. is indicated. A general rank ordering of antipsychotics that have the greatest to the least risk of metabolic effects is olanzapine, quetiapine, risperidone, ziprasidone, and aripiprazole. However, weight gain can occur with all of these drugs and considerable variability exists among patients receiving the same drug regarding the risk of metabolic effects. Anti-psychotic agents not only increase the risk of metabolic disorder, they also increase the risk of CVA, akathisia, and movement disorders including EPS or tardive dyskinesia (more common with first generation antipsychotics) and more. Medication Management and Follow-Up - Plan: - Schedule follow-up appointments every 1-3 months to monitor the patient's response to the medication regimen. - Patient educated on all medications including potential benefits, side effects, risks. Educated on proper dosing schedule and importance of compliance 07/20/2024 JED (generalized anxiety disorder) (ICD-10 - F41.1) Learning About Generalized Anxiety Disorder material was published, Generalized Anxiety Disorder: Care Instructions material was published, Learning About Anxiety Disorders material was published, Generalized Anxiety Disorder: Care Instructions material was published, Learning About Generalized Anxiety Disorder material was published, Learning About Anxiety Disorders material was published, Learning About Generalized Anxiety Disorder material was published 1.Bipolar II- Discuss and educated on rx options- Caplyta INCREASE Caplyta 21 mg in evening - samples given educated on all rx refer to therapy- will schedule [facility]- patient cxl appt,-went once and didn't go back 2.Anxiety -Zoloft 100 mg daily stable 3.ADHD combination discuss and educated on stimualtes and non- stimulates Straterra 40 mg daily in am- stable no control substance prescribed by [facility] r/t cannabis use ANA-2 TEST partial completed 01/20/24- complete the ANA-2 test for results 01/27/24 ANA-2 results ADHD combination 4. Cannabis use no control substance presribed by [facility] Reinforce the importance of avoiding recreational drug use due to potential neurotoxicity and interactions with prescribed medications. http__s://www.ni .nih.gov/healt h/topics/mental- health-medicatio ns http__s://www.na mi.org/About-Men ariadna-Illness/Alicia tments/Mental-He alth-Medications Recommend decrease/stop cannabis use as it may be negatively impacting mood, motivation, anxiety, sleep, focus; can also contribute to development of psychosis 5. hx elevated blood pressure- monitor B/P- see PCP- no B/P rx heart healthy diet and excise limit salt and caffiene monitor B/P educated on healthy B/P 120/80 not on B/P rx PCP with B/P Rose Patel educated on all medications, benefits, side effects and risk, and educated on depression, anxiety, and ADHD, mood d/o and educated on compliance of medications, metabolic and movement d/o education appointment is, continue therapy discussion with patient about course of treatment and patient instructions. education on serotonin syndrome SSRI/SNRI side effects discussed including but not limited to, gastric upset, nausea, vomiting, diarrhea and/or constipation, weight changes, sexual side effects including loss of libido, increased suicidal thoughts/behavio rs in children and young adults, and serotonin syndrome. Second generation antipsychotics (SGAs) have metabolic syndrome issues with weight gain, increase in prolactin, increased waist circumference, increased lipids, and increased glucose. Thus routine monitoring of weight, metabolic labs, etc. is indicated. A general rank ordering of antipsychotics that have the greatest to the least risk of metabolic effects is olanzapine, quetiapine, risperidone, ziprasidone, and aripiprazole. However, weight gain can occur with all of these drugs and considerable variability exists among patients receiving the same drug regarding the risk of metabolic effects. Anti-psychotic agents not only increase the risk of metabolic disorder, they also increase the risk of CVA, akathisia, and movement disorders including EPS or tardive dyskinesia (more common with first generation antipsychotics) and more. Medication Management and Follow-Up - Plan: - Schedule follow-up appointments every 1-3 months to monitor the patient's response to the medication regimen. - Patient educated on all medications including potential benefits, side effects, risks. Educated on proper dosing schedule and importance of compliance 07/26/2024 Dietary counseling and surveillance (ICD-10 - Z71.3) Learning About Carbohydrate (Carb) Counting and Eating Out When You Have Diabetes material was published, Low Sodium Diet (2,000 Milligram): Care Instructions material was published, DASH Diet: Care Instructions material was published, Learning About Low-Fat Eating material was published, Counting Carbohydrates for Diabetes: Care Instructions material was published 1.Bipolar II- Discuss and educated on rx options- Caplyta Caplyta 21 mg in evening - samples given last visit and rx filled - no refill needed today educated on all rx refer to therapy- will schedule [facility]- patient cxl appt,-went once and didn't go back 2.Anxiety - decrease Zoloft 50 mg daily- r/o restless legs and feet - no refill needed today will split 100 mg dose has at home stable 3.ADHD combination discuss and educated on stimualtes and non- stimulates Straterra 40 mg daily in am- stable no control substance prescribed by [facility] r/t cannabis use ANA-2 TEST partial completed 01/20/24- complete the ANA-2 test for results 01/27/24 ANA-2 results ADHD combination 4. Cannabis use no control substance presribed by [facility] Reinforce the importance of avoiding recreational drug use due to potential neurotoxicity and interactions with prescribed medications. http__s://www.ni mh.nih.gov/healt h/topics/mental- health-medicatio ns http__s://www.na mi.org/About-Men ariadna-Illness/Alicia tments/Mental-He alth-Medications Recommend decrease/stop cannabis use as it may be negatively impacting mood, motivation, anxiety, sleep, focus; can also contribute to development of psychosis 5. hx elevated blood pressure- wnl monitor B/P- see PCP- no B/P rx heart healthy diet and excise limit salt and caffiene monitor B/P educated on healthy B/P 120/80 not on B/P rx PCP with B/P Rose Patel educated on all medications, benefits, side effects and risk, and educated on depression, anxiety, and ADHD, mood d/o and educated on compliance of medications, metabolic and movement d/o education appointment is, continue therapy discussion with patient about course of treatment and patient instructions. education on serotonin syndrome SSRI/SNRI side effects discussed including but not limited to, gastric upset, nausea, vomiting, diarrhea and/or constipation, weight changes, sexual side effects including loss of libido, increased suicidal thoughts/behavio rs in children and young adults, and serotonin syndrome. Second generation antipsychotics (SGAs) have metabolic syndrome issues with weight gain, increase in prolactin, increased waist circumference, increased lipids, and increased glucose. Thus routine monitoring of weight, metabolic labs, etc. is indicated. A general rank ordering of antipsychotics that have the greatest to the least risk of metabolic effects is olanzapine, quetiapine, risperidone, ziprasidone, and aripiprazole. However, weight gain can occur with all of these drugs and considerable variability exists among patients receiving the same drug regarding the risk of metabolic effects. Anti-psychotic agents not only increase the risk of metabolic disorder, they also increase the risk of CVA, akathisia, and movement disorders including EPS or tardive dyskinesia (more common with first generation antipsychotics) and more. Medication Management and Follow-Up - Plan: - Schedule follow-up appointments every 1-3 months to monitor the patient's response to the medication regimen. - Patient educated on all medications including potential benefits, side effects, risks. Educated on proper dosing schedule and importance of compliance 06/21/2024 JED (generalized anxiety disorder) (ICD-10 - F41.1) Learning About Generalized Anxiety Disorder material was published, Generalized Anxiety Disorder: Care Instructions material was published, Learning About Anxiety Disorders material was published, Generalized Anxiety Disorder: Care Instructions material was published, Learning About Generalized Anxiety Disorder material was published, Learning About Anxiety Disorders material was published, Learning About Generalized Anxiety Disorder material was published 1.Bipolar II- Discuss and educated on rx options- may switch to Caplyta pateint is expressing Akathisia in legs and restelss improved but still have daily and also in feet D/C Abilify 2.5 mg at bedtime- ADD Caplyta 10.5 mg in evening - sampls given educated on all rx refer to therapy- will schedule [facility]- patient cxl appt, 2.Anxiety -Zoloft 100 mg daily stable 3.ADHD combination discuss and educated on stimualtes and non- stimulates Straterra 40 mg daily in am- stable no control substance prescribed by [facility] r/t cannabis use ANA-2 TEST partial completed 01/20/24- complete the ANA-2 test for results 01/27/24 ANA-2 results ADHD combination 4. Cannabis use no control substance presribed by [facility] Reinforce the importance of avoiding recreational drug use due to potential neurotoxicity and interactions with prescribed medications. http__s://www.ni .nih.gov/healt h/topics/mental- health-medicatio ns http__s://www.na mi.org/About-Men ariadna-Illness/Alicia tments/Mental-He alth-Medications Recommend decrease/stop cannabis use as it may be negatively impacting mood, motivation, anxiety, sleep, focus; can also contribute to development of psychosis 5. hx elevated blood pressure- monitor B/P- see PCP- no B/P rx heart healthy diet and excise limit salt and caffiene monitor B/P educated on healthy B/P 120/80 not on B/P rx PCP with B/P [facility] educated on all medications, benefits, side effects and risk, and educated on depression, anxiety, and ADHD, mood d/o and educated on compliance of medications, metabolic and movement d/o education appointment is, continue therapy discussion with patient about course of treatment and patient instructions. education on serotonin syndrome SSRI/SNRI side effects discussed including but not limited to, gastric upset, nausea, vomiting, diarrhea and/or constipation, weight changes, sexual side effects including loss of libido, increased suicidal thoughts/behavio rs in children and young adults, and serotonin syndrome. Second generation antipsychotics (SGAs) have metabolic syndrome issues with weight gain, increase in prolactin, increased waist circumference, increased lipids, and increased glucose. Thus routine monitoring of weight, metabolic labs, etc. is indicated. A general rank ordering of antipsychotics that have the greatest to the least risk of metabolic effects is olanzapine, quetiapine, risperidone, ziprasidone, and aripiprazole. However, weight gain can occur with all of these drugs and considerable variability exists among patients receiving the same drug regarding the risk of metabolic effects. Anti-psychotic agents not only increase the risk of metabolic disorder, they also increase the risk of CVA, akathisia, and movement disorders including EPS or tardive dyskinesia (more common with first generation antipsychotics) and more. Medication Management and Follow-Up - Plan: - Schedule follow-up appointments every 1-3 months to monitor the patient's response to the medication regimen. - Patient educated on all medications including potential benefits, side effects, risks. Educated on proper dosing schedule and importance of compliance 03/05/2024 Marijuana use (ICD-10 - F12.90) Marijuana Use: Care Instructions material was published, Learning About Cannabis Use Disorder material was published 1.Bipolar II- Discuss and educated on rx options Abilify 5 mg at bedtime- no refill needed today refer to therapy- will schedule [facility]- patient cxl appt, 2.Anxiety -Zoloft 100 mg daily discuss- no refill needed today 3.ADHD combination discuss and educated on stimualtes and non- stimulates Straterra 40 mg daily in am no control substance prescribed by [facility] r/t cannabis use ANA-2 TEST partial completed 01/20/24- complete the ANA-2 test for results 01/27/24 ANA-2 results ADHD combination 4. Cannabis use no control substance presribed by [facility] Reinforce the importance of avoiding recreational drug use due to potential neurotoxicity and interactions with prescribed medications. http__s://www.ni .nih.gov/healt h/topics/mental- health-medicatio ns http__s://www.na mi.org/About-Men ariadna-Illness/Alicia tments/Mental-He alth-Medications Recommend decrease/stop cannabis use as it may be negatively impacting mood, motivation, anxiety, sleep, focus; can also contribute to development of psychosis 5. elevated blood pressure monitor B/P- refer to PCP heart healthy diet and excise limit salt and caffiene monitor B/P educated on healthy B/P 120/80 not on B/P rx PCP with B/P [facility] educated on all medications, benefits, side effects and risk, and educated on depression, anxiety, and ADHD, mood d/o and educated on compliance of medications, metabolic and movement d/o education appointment is, continue therapy discussion with patient about course of treatment and patient instructions. education on serotonin syndrome SSRI/SNRI side effects discussed including but not limited to, gastric upset, nausea, vomiting, diarrhea and/or constipation, weight changes, sexual side effects including loss of libido, increased suicidal thoughts/behavio rs in children and young adults, and serotonin syndrome. Second generation antipsychotics (SGAs) have metabolic syndrome issues with weight gain, increase in prolactin, increased waist circumference, increased lipids, and increased glucose. Thus routine monitoring of weight, metabolic labs, etc. is indicated. A general rank ordering of antipsychotics that have the greatest to the least risk of metabolic effects is olanzapine, quetiapine, risperidone, ziprasidone, and aripiprazole. However, weight gain can occur with all of these drugs and considerable variability exists among patients receiving the same drug regarding the risk of metabolic effects. Anti-psychotic agents not only increase the risk of metabolic disorder, they also increase the risk of CVA, akathisia, and movement disorders including EPS or tardive dyskinesia (more common with first generation antipsychotics) and more. Medication Management and Follow-Up - Plan: - Schedule follow-up appointments every 1-3 months to monitor the patient's response to the medication regimen. - Patient educated on all medications including potential benefits, side effects, risks. Educated on proper dosing schedule and importance of compliance 06/07/2024 Bipolar II disorder (ICD-10 - F31.81) Bipolar Disorder: Care Instructions material was published, Learning About Movement Disorders From Antipsychotic Medicines material was published, Learning About Mood Disorders material was published, Learning About How to Get Help During a Mental Health Crisis material was published, Bipolar Disorder: Care Instructions material was published, Learning About Mood Disorders material was published, Learning About Movement Disorders From Antipsychotic Medicines material was published, Learning About How to Get Help During a Mental Health Crisis material was published 1.Bipolar II- Discuss and educated on rx options- may switch to Caplyta or Vraylar next visit pateint is expressing Akathisia in legs - r/o Abilify will decrease Abilify to 2.5 mg at bedtime Abilify 2.5 mg at bedtime- no refill needed today- has 5 mg dose at home to split - no refill needed refer to therapy- will schedule [facility]- patient cxl appt, 2.Anxiety -Zoloft 100 mg daily discuss- no refill needed today 3.ADHD combination discuss and educated on stimualtes and non- stimulates Straterra 40 mg daily in am- no refill needed no control substance prescribed by [facility] r/t cannabis use ANA-2 TEST partial completed 01/20/24- complete the ANA-2 test for results 01/27/24 ANA-2 results ADHD combination 4. Cannabis use no control substance presribed by [facility] Reinforce the importance of avoiding recreational drug use due to potential neurotoxicity and interactions with prescribed medications. http__s://www.ni .nih.gov/healt h/topics/mental- health-medicatio ns http__s://www.na mi.org/About-Men ariadna-Illness/Alicia tments/Mental-He alth-Medications Recommend decrease/stop cannabis use as it may be negatively impacting mood, motivation, anxiety, sleep, focus; can also contribute to development of psychosis 5. hx elevated blood pressure- stable today monitor B/P- see PCP- no B/P rx heart healthy diet and excise limit salt and caffiene monitor B/P educated on healthy B/P 120/80 not on B/P rx PCP with B/P [facility] educated on all medications, benefits, side effects and risk, and educated on depression, anxiety, and ADHD, mood d/o and educated on compliance of medications, metabolic and movement d/o education appointment is, continue therapy discussion with patient about course of treatment and patient instructions. education on serotonin syndrome SSRI/SNRI side effects discussed including but not limited to, gastric upset, nausea, vomiting, diarrhea and/or constipation, weight changes, sexual side effects including loss of libido, increased suicidal thoughts/behavio rs in children and young adults, and serotonin syndrome. Second generation antipsychotics (SGAs) have metabolic syndrome issues with weight gain, increase in prolactin, increased waist circumference, increased lipids, and increased glucose. Thus routine monitoring of weight, metabolic labs, etc. is indicated. A general rank ordering of antipsychotics that have the greatest to the least risk of metabolic effects is olanzapine, quetiapine, risperidone, ziprasidone, and aripiprazole. However, weight gain can occur with all of these drugs and considerable variability exists among patients receiving the same drug regarding the risk of metabolic effects. Anti-psychotic agents not only increase the risk of metabolic disorder, they also increase the risk of CVA, akathisia, and movement disorders including EPS or tardive dyskinesia (more common with first generation antipsychotics) and more. Medication Management and Follow-Up - Plan: - Schedule follow-up appointments every 1-3 months to monitor the patient's response to the medication regimen. - Patient educated on all medications including potential benefits, side effects, risks. Educated on proper dosing schedule and importance of compliance 06/07/2024 ADHD (attention deficit hyperactivity disorder), combined type (ICD-10 - F90.2) Attention Deficit Hyperactivity Disorder (ADHD) in Adults: Care Instructions material was published, Learning About Attention Deficit Hyperactivity Disorder (ADHD) in Adults material was published, Learning About Stimulant Medicines for Attention Deficit Hyperactivity Disorder (ADHD) material was published 1.Bipolar II- Discuss and educated on rx options- may switch to Caplyta or Vraylar next visit pateint is expressing Akathisia in legs - r/o Abilify will decrease Abilify to 2.5 mg at bedtime Abilify 2.5 mg at bedtime- no refill needed today- has 5 mg dose at home to split - no refill needed refer to therapy- will schedule [facility]- patient cxl appt, 2.Anxiety -Zoloft 100 mg daily discuss- no refill needed today 3.ADHD combination discuss and educated on stimualtes and non- stimulates Straterra 40 mg daily in am- no refill needed no control substance prescribed by [facility] r/t cannabis use ANA-2 TEST partial completed 01/20/24- complete the ANA-2 test for results 01/27/24 ANA-2 results ADHD combination 4. Cannabis use no control substance presribed by [facility] Reinforce the importance of avoiding recreational drug use due to potential neurotoxicity and interactions with prescribed medications. http__s://www.ni mh.nih.gov/healt h/topics/mental- health-medicatio ns http__s://www.na mi.org/About-Men ariadna-Illness/Alicia tments/Mental-He alth-Medications Recommend decrease/stop cannabis use as it may be negatively impacting mood, motivation, anxiety, sleep, focus; can also contribute to development of psychosis 5. hx elevated blood pressure- stable today monitor B/P- see PCP- no B/P rx heart healthy diet and excise limit salt and caffiene monitor B/P educated on healthy B/P 120/80 not on B/P rx PCP with B/P [facility] educated on all medications, benefits, side effects and risk, and educated on depression, anxiety, and ADHD, mood d/o and educated on compliance of medications, metabolic and movement d/o education appointment is, continue therapy discussion with patient about course of treatment and patient instructions. education on serotonin syndrome SSRI/SNRI side effects discussed including but not limited to, gastric upset, nausea, vomiting, diarrhea and/or constipation, weight changes, sexual side effects including loss of libido, increased suicidal thoughts/behavio rs in children and young adults, and serotonin syndrome. Second generation antipsychotics (SGAs) have metabolic syndrome issues with weight gain, increase in prolactin, increased waist circumference, increased lipids, and increased glucose. Thus routine monitoring of weight, metabolic labs, etc. is indicated. A general rank ordering of antipsychotics that have the greatest to the least risk of metabolic effects is olanzapine, quetiapine, risperidone, ziprasidone, and aripiprazole. However, weight gain can occur with all of these drugs and considerable variability exists among patients receiving the same drug regarding the risk of metabolic effects. Anti-psychotic agents not only increase the risk of metabolic disorder, they also increase the risk of CVA, akathisia, and movement disorders including EPS or tardive dyskinesia (more common with first generation antipsychotics) and more. Medication Management and Follow-Up - Plan: - Schedule follow-up appointments every 1-3 months to monitor the patient's response to the medication regimen. - Patient educated on all medications including potential benefits, side effects, risks. Educated on proper dosing schedule and importance of compliance 02/07/2024 Marijuana use (ICD-10 - F12.90) Marijuana Use: Care Instructions material was published, Learning About Cannabis Use Disorder material was published 1.Bipolar II- Discuss and educated on rx options Abilify 5 mg at bedtime refer to therapy- will schedule [facility] 2.Anxiety -Zoloft 100 mg daily discuss 3.ADHD combination discuss and educated on stimualtes and non- stimulates will add Straterra 25 mg daily in am for 1 week then increase Straterra 40 mg daily in am no control substance prescribed by [facility] r/t cannabis use ANA-2 TEST partial completed 01/20/24- complete the ANA-2 test for results 01/27/24 ANA-2 results ADHD combination 4. Cannabis use no control substance presribed by [facility] Reinforce the importance of avoiding recreational drug use due to potential neurotoxicity and interactions with prescribed medications. http__s://www.ni .nih.gov/healt h/topics/mental- health-medicatio ns http__s://www.na mi.org/About-Men ariadna-Illness/Alicia tments/Mental-He alth-Medications Recommend decrease/stop cannabis use as it may be negatively impacting mood, motivation, anxiety, sleep, focus; can also contribute to development of psychosis 5. elevated blood pressure monitor B/P- refer to PCP heart healthy diet and excise limit salt and caffiene monitor B/P educated on healthy B/P 120/80 not on B/P rx refer to PCP with B/P [facility] educated on all medications, benefits, side effects and risk, and educated on depression, anxiety, and ADHD, mood d/o and educated on compliance of medications, metabolic and movement d/o education appointment is, continue therapy discussion with patient about course of treatment and patient instructions. education on serotonin syndrome SSRI/SNRI side effects discussed including but not limited to, gastric upset, nausea, vomiting, diarrhea and/or constipation, weight changes, sexual side effects including loss of libido, increased suicidal thoughts/behavio rs in children and young adults, and serotonin syndrome. Second generation antipsychotics (SGAs) have metabolic syndrome issues with weight gain, increase in prolactin, increased waist circumference, increased lipids, and increased glucose. Thus routine monitoring of weight, metabolic labs, etc. is indicated. A general rank ordering of antipsychotics that have the greatest to the least risk of metabolic effects is olanzapine, quetiapine, risperidone, ziprasidone, and aripiprazole. However, weight gain can occur with all of these drugs and considerable variability exists among patients receiving the same drug regarding the risk of metabolic effects. Anti-psychotic agents not only increase the risk of metabolic disorder, they also increase the risk of CVA, akathisia, and movement disorders including EPS or tardive dyskinesia (more common with first generation antipsychotics) and more. Medication Management and Follow-Up - Plan: - Schedule follow-up appointments every 1-3 months to monitor the patient's response to the medication regimen. - Patient educated on all medications including potential benefits, side effects, risks. Educated on proper dosing schedule and importance of compliance 06/07/2024 Marijuana use (ICD-10 - F12.90) Marijuana Use: Care Instructions material was published, Learning About Cannabis Use Disorder material was published 1.Bipolar II- Discuss and educated on rx options- may switch to Caplyta or Vraylar next visit pateint is expressing Akathisia in legs - r/o Abilify will decrease Abilify to 2.5 mg at bedtime Abilify 2.5 mg at bedtime- no refill needed today- has 5 mg dose at home to split - no refill needed refer to therapy- will schedule [facility]- patient cxl appt, 2.Anxiety -Zoloft 100 mg daily discuss- no refill needed today 3.ADHD combination discuss and educated on stimualtes and non- stimulates Straterra 40 mg daily in am- no refill needed no control substance prescribed by [facility] r/t cannabis use ANA-2 TEST partial completed 01/20/24- complete the ANA-2 test for results 01/27/24 ANA-2 results ADHD combination 4. Cannabis use no control substance presribed by [facility] Reinforce the importance of avoiding recreational drug use due to potential neurotoxicity and interactions with prescribed medications. http__s://www.ni .nih.gov/healt h/topics/mental- health-medicatio ns http__s://www.na mi.org/About-Men ariadna-Illness/Alicia tments/Mental-He alth-Medications Recommend decrease/stop cannabis use as it may be negatively impacting mood, motivation, anxiety, sleep, focus; can also contribute to development of psychosis 5. hx elevated blood pressure- stable today monitor B/P- see PCP- no B/P rx heart healthy diet and excise limit salt and caffiene monitor B/P educated on healthy B/P 120/80 not on B/P rx PCP with B/P [facility] educated on all medications, benefits, side effects and risk, and educated on depression, anxiety, and ADHD, mood d/o and educated on compliance of medications, metabolic and movement d/o education appointment is, continue therapy discussion with patient about course of treatment and patient instructions. education on serotonin syndrome SSRI/SNRI side effects discussed including but not limited to, gastric upset, nausea, vomiting, diarrhea and/or constipation, weight changes, sexual side effects including loss of libido, increased suicidal thoughts/behavio rs in children and young adults, and serotonin syndrome. Second generation antipsychotics (SGAs) have metabolic syndrome issues with weight gain, increase in prolactin, increased waist circumference, increased lipids, and increased glucose. Thus routine monitoring of weight, metabolic labs, etc. is indicated. A general rank ordering of antipsychotics that have the greatest to the least risk of metabolic effects is olanzapine, quetiapine, risperidone, ziprasidone, and aripiprazole. However, weight gain can occur with all of these drugs and considerable variability exists among patients receiving the same drug regarding the risk of metabolic effects. Anti-psychotic agents not only increase the risk of metabolic disorder, they also increase the risk of CVA, akathisia, and movement disorders including EPS or tardive dyskinesia (more common with first generation antipsychotics) and more. Medication Management and Follow-Up - Plan: - Schedule follow-up appointments every 1-3 months to monitor the patient's response to the medication regimen. - Patient educated on all medications including potential benefits, side effects, risks. Educated on proper dosing schedule and importance of compliance 08/31/2024 JED (generalized anxiety disorder) (ICD-10 - F41.1) Learning About Generalized Anxiety Disorder material was published, Generalized Anxiety Disorder: Care Instructions material was published, Learning About Anxiety Disorders material was published, Generalized Anxiety Disorder: Care Instructions material was published, Learning About Generalized Anxiety Disorder material was published, Learning About Anxiety Disorders material was published, Learning About Generalized Anxiety Disorder material was published 1.Bipolar II- Discuss and educated on rx options- Caplyta Caplyta 21 mg in evening - - educated on all rx refer to therapy- will schedule [facility]- patient cxl appt,-went once and didn't go back 2.Anxiety - Zoloft 50 mg daily- improved restless legs and feet - no refill needed today stable 3.ADHD combination discuss and educated on stimualtes and non- stimulates Straterra 40 mg daily in am- stable no refill needed today no control substance prescribed by [facility] r/t cannabis use ANA-2 TEST partial completed 01/20/24- complete the ANA-2 test for results 01/27/24 ANA-2 results ADHD combination 4. Cannabis use no control substance presribed by [facility] Reinforce the importance of avoiding recreational drug use due to potential neurotoxicity and interactions with prescribed medications. http__s://www.ni .nih.gov/healt h/topics/mental- health-medicatio ns http__s://www.na mi.org/About-Men ariadna-Illness/Alicia tments/Mental-He alth-Medications Recommend decrease/stop cannabis use as it may be negatively impacting mood, motivation, anxiety, sleep, focus; can also contribute to development of psychosis 5. hx elevated blood pressure- wnl monitor B/P- see PCP- no B/P rx heart healthy diet and excise limit salt and caffiene monitor B/P educated on healthy B/P 120/80 not on B/P rx PCP with B/P [facility] educated on all medications, benefits, side effects and risk, and educated on depression, anxiety, and ADHD, mood d/o and educated on compliance of medications, metabolic and movement d/o education appointment is, continue therapy discussion with patient about course of treatment and patient instructions. education on serotonin syndrome SSRI/SNRI side effects discussed including but not limited to, gastric upset, nausea, vomiting, diarrhea and/or constipation, weight changes, sexual side effects including loss of libido, increased suicidal thoughts/behavio rs in children and young adults, and serotonin syndrome. Second generation antipsychotics (SGAs) have metabolic syndrome issues with weight gain, increase in prolactin, increased waist circumference, increased lipids, and increased glucose. Thus routine monitoring of weight, metabolic labs, etc. is indicated. A general rank ordering of antipsychotics that have the greatest to the least risk of metabolic effects is olanzapine, quetiapine, risperidone, ziprasidone, and aripiprazole. However, weight gain can occur with all of these drugs and considerable variability exists among patients receiving the same drug regarding the risk of metabolic effects. Anti-psychotic agents not only increase the risk of metabolic disorder, they also increase the risk of CVA, akathisia, and movement disorders including EPS or tardive dyskinesia (more common with first generation antipsychotics) and more. Medication Management and Follow-Up - Plan: - Schedule follow-up appointments every 1-3 months to monitor the patient's response to the medication regimen. - Patient educated on all medications including potential benefits, side effects, risks. Educated on proper dosing schedule and importance of compliance 06/21/2024 Hypertension, unspecified type (ICD-10 - I10) High Blood Pressure: Care Instructions material was published, Learning About High Blood Pressure material was published, Learning About High Blood Pressure material was published, High Blood Pressure: Care Instructions material was published 1.Bipolar II- Discuss and educated on rx options- may switch to Caplyta pateint is expressing Akathisia in legs and restelss improved but still have daily and also in feet D/C Abilify 2.5 mg at bedtime- ADD Caplyta 10.5 mg in evening - sampls given educated on all rx refer to therapy- will schedule [facility]- patient cxl appt, 2.Anxiety -Zoloft 100 mg daily stable 3.ADHD combination discuss and educated on stimualtes and non- stimulates Straterra 40 mg daily in am- stable no control substance prescribed by [facility] r/t cannabis use ANA-2 TEST partial completed 01/20/24- complete the NAA-2 test for results 01/27/24 ANA-2 results ADHD combination 4. Cannabis use no control substance presribed by [facility] Reinforce the importance of avoiding recreational drug use due to potential neurotoxicity and interactions with prescribed medications. http__s://www.ni mh.nih.gov/healt h/topics/mental- health-medicatio ns http__s://www.na mi.org/About-Men ariadna-Illness/Alicia tments/Mental-He alth-Medications Recommend decrease/stop cannabis use as it may be negatively impacting mood, motivation, anxiety, sleep, focus; can also contribute to development of psychosis 5. hx elevated blood pressure- monitor B/P- see PCP- no B/P rx heart healthy diet and excise limit salt and caffiene monitor B/P educated on healthy B/P 120/80 not on B/P rx PCP with B/P [facility] educated on all medications, benefits, side effects and risk, and educated on depression, anxiety, and ADHD, mood d/o and educated on compliance of medications, metabolic and movement d/o education appointment is, continue therapy discussion with patient about course of treatment and patient instructions. education on serotonin syndrome SSRI/SNRI side effects discussed including but not limited to, gastric upset, nausea, vomiting, diarrhea and/or constipation, weight changes, sexual side effects including loss of libido, increased suicidal thoughts/behavio rs in children and young adults, and serotonin syndrome. Second generation antipsychotics (SGAs) have metabolic syndrome issues with weight gain, increase in prolactin, increased waist circumference, increased lipids, and increased glucose. Thus routine monitoring of weight, metabolic labs, etc. is indicated. A general rank ordering of antipsychotics that have the greatest to the least risk of metabolic effects is olanzapine, quetiapine, risperidone, ziprasidone, and aripiprazole. However, weight gain can occur with all of these drugs and considerable variability exists among patients receiving the same drug regarding the risk of metabolic effects. Anti-psychotic agents not only increase the risk of metabolic disorder, they also increase the risk of CVA, akathisia, and movement disorders including EPS or tardive dyskinesia (more common with first generation antipsychotics) and more. Medication Management and Follow-Up - Plan: - Schedule follow-up appointments every 1-3 months to monitor the patient's response to the medication regimen. - Patient educated on all medications including potential benefits, side effects, risks. Educated on proper dosing schedule and importance of compliance 07/26/2024 JED (generalized anxiety disorder) (ICD-10 - F41.1) Learning About Generalized Anxiety Disorder material was published, Generalized Anxiety Disorder: Care Instructions material was published, Learning About Anxiety Disorders material was published, Generalized Anxiety Disorder: Care Instructions material was published, Learning About Generalized Anxiety Disorder material was published, Learning About Anxiety Disorders material was published, Learning About Generalized Anxiety Disorder material was published 1.Bipolar II- Discuss and educated on rx options- Caplyta Caplyta 21 mg in evening - samples given last visit and rx filled - no refill needed today educated on all rx refer to therapy- will schedule [facility]- patient cxl appt,-went once and didn't go back 2.Anxiety - decrease Zoloft 50 mg daily- r/o restless legs and feet - no refill needed today will split 100 mg dose has at home stable 3.ADHD combination discuss and educated on stimualtes and non- stimulates Straterra 40 mg daily in am- stable no control substance prescribed by [facility] r/t cannabis use ANA-2 TEST partial completed 01/20/24- complete the ANA-2 test for results 01/27/24 ANA-2 results ADHD combination 4. Cannabis use no control substance presribed by [facility] Reinforce the importance of avoiding recreational drug use due to potential neurotoxicity and interactions with prescribed medications. http__s://www.ni .nih.gov/healt h/topics/mental- health-medicatio ns http__s://www.na mi.org/About-Men ariadna-Illness/Alicia tments/Mental-He alth-Medications Recommend decrease/stop cannabis use as it may be negatively impacting mood, motivation, anxiety, sleep, focus; can also contribute to development of psychosis 5. hx elevated blood pressure- wnl monitor B/P- see PCP- no B/P rx heart healthy diet and excise limit salt and caffiene monitor B/P educated on healthy B/P 120/80 not on B/P rx PCP with B/P [facility] educated on all medications, benefits, side effects and risk, and educated on depression, anxiety, and ADHD, mood d/o and educated on compliance of medications, metabolic and movement d/o education appointment is, continue therapy discussion with patient about course of treatment and patient instructions. education on serotonin syndrome SSRI/SNRI side effects discussed including but not limited to, gastric upset, nausea, vomiting, diarrhea and/or constipation, weight changes, sexual side effects including loss of libido, increased suicidal thoughts/behavio rs in children and young adults, and serotonin syndrome. Second generation antipsychotics (SGAs) have metabolic syndrome issues with weight gain, increase in prolactin, increased waist circumference, increased lipids, and increased glucose. Thus routine monitoring of weight, metabolic labs, etc. is indicated. A general rank ordering of antipsychotics that have the greatest to the least risk of metabolic effects is olanzapine, quetiapine, risperidone, ziprasidone, and aripiprazole. However, weight gain can occur with all of these drugs and considerable variability exists among patients receiving the same drug regarding the risk of metabolic effects. Anti-psychotic agents not only increase the risk of metabolic disorder, they also increase the risk of CVA, akathisia, and movement disorders including EPS or tardive dyskinesia (more common with first generation antipsychotics) and more. Medication Management and Follow-Up - Plan: - Schedule follow-up appointments every 1-3 months to monitor the patient's response to the medication regimen. - Patient educated on all medications including potential benefits, side effects, risks. Educated on proper dosing schedule and importance of compliance 07/20/2024 Hypertension, unspecified type (ICD-10 - I10) High Blood Pressure: Care Instructions material was published, Learning About High Blood Pressure material was published, Learning About High Blood Pressure material was published, High Blood Pressure: Care Instructions material was published 1.Bipolar II- Discuss and educated on rx options- Caplyta INCREASE Caplyta 21 mg in evening - samples given educated on all rx refer to therapy- will schedule [facility]- patient cxl appt,-went once and didn't go back 2.Anxiety -Zoloft 100 mg daily stable 3.ADHD combination discuss and educated on stimualtes and non- stimulates Straterra 40 mg daily in am- stable no control substance prescribed by [facility] r/t cannabis use ANA-2 TEST partial completed 01/20/24- complete the ANA-2 test for results 01/27/24 ANA-2 results ADHD combination 4. Cannabis use no control substance presribed by [facility] Reinforce the importance of avoiding recreational drug use due to potential neurotoxicity and interactions with prescribed medications. http__s://www.ni mh.nih.gov/healt h/topics/mental- health-medicatio ns http__s://www.na mi.org/About-Men ariadna-Illness/Alicia tments/Mental-He alth-Medications Recommend decrease/stop cannabis use as it may be negatively impacting mood, motivation, anxiety, sleep, focus; can also contribute to development of psychosis 5. hx elevated blood pressure- monitor B/P- see PCP- no B/P rx heart healthy diet and excise limit salt and caffiene monitor B/P educated on healthy B/P 120/80 not on B/P rx PCP with B/P [facility] educated on all medications, benefits, side effects and risk, and educated on depression, anxiety, and ADHD, mood d/o and educated on compliance of medications, metabolic and movement d/o education appointment is, continue therapy discussion with patient about course of treatment and patient instructions. education on serotonin syndrome SSRI/SNRI side effects discussed including but not limited to, gastric upset, nausea, vomiting, diarrhea and/or constipation, weight changes, sexual side effects including loss of libido, increased suicidal thoughts/behavio rs in children and young adults, and serotonin syndrome. Second generation antipsychotics (SGAs) have metabolic syndrome issues with weight gain, increase in prolactin, increased waist circumference, increased lipids, and increased glucose. Thus routine monitoring of weight, metabolic labs, etc. is indicated. A general rank ordering of antipsychotics that have the greatest to the least risk of metabolic effects is olanzapine, quetiapine, risperidone, ziprasidone, and aripiprazole. However, weight gain can occur with all of these drugs and considerable variability exists among patients receiving the same drug regarding the risk of metabolic effects. Anti-psychotic agents not only increase the risk of metabolic disorder, they also increase the risk of CVA, akathisia, and movement disorders including EPS or tardive dyskinesia (more common with first generation antipsychotics) and more. Medication Management and Follow-Up - Plan: - Schedule follow-up appointments every 1-3 months to monitor the patient's response to the medication regimen. - Patient educated on all medications including potential benefits, side effects, risks. Educated on proper dosing schedule and importance of compliance 07/20/2024 ADHD (attention deficit hyperactivity disorder), combined type (ICD-10 - F90.2) Attention Deficit Hyperactivity Disorder (ADHD) in Adults: Care Instructions material was published, Learning About Attention Deficit Hyperactivity Disorder (ADHD) in Adults material was published, Learning About Stimulant Medicines for Attention Deficit Hyperactivity Disorder (ADHD) material was published, Learning About Attention Deficit Hyperactivity Disorder (ADHD) in Adults material was published, Attention Deficit Hyperactivity Disorder (ADHD) in Adults: Care Instructions material was published 1.Bipolar II- Discuss and educated on rx options- Caplyta INCREASE Caplyta 21 mg in evening - samples given educated on all rx refer to therapy- will schedule [facility]- patient cxl appt,-went once and didn't go back 2.Anxiety -Zoloft 100 mg daily stable 3.ADHD combination discuss and educated on stimualtes and non- stimulates Straterra 40 mg daily in am- stable no control substance prescribed by [facility] r/t cannabis use ANA-2 TEST partial completed 01/20/24- complete the ANA-2 test for results 01/27/24 ANA-2 results ADHD combination 4. Cannabis use no control substance presribed by [facility] Reinforce the importance of avoiding recreational drug use due to potential neurotoxicity and interactions with prescribed medications. http__s://www.ni .nih.gov/healt h/topics/mental- health-medicatio ns http__s://www.na mi.org/About-Men ariadna-Illness/Alicia tments/Mental-He alth-Medications Recommend decrease/stop cannabis use as it may be negatively impacting mood, motivation, anxiety, sleep, focus; can also contribute to development of psychosis 5. hx elevated blood pressure- monitor B/P- see PCP- no B/P rx heart healthy diet and excise limit salt and caffiene monitor B/P educated on healthy B/P 120/80 not on B/P rx PCP with B/P [facility] educated on all medications, benefits, side effects and risk, and educated on depression, anxiety, and ADHD, mood d/o and educated on compliance of medications, metabolic and movement d/o education appointment is, continue therapy discussion with patient about course of treatment and patient instructions. education on serotonin syndrome SSRI/SNRI side effects discussed including but not limited to, gastric upset, nausea, vomiting, diarrhea and/or constipation, weight changes, sexual side effects including loss of libido, increased suicidal thoughts/behavio rs in children and young adults, and serotonin syndrome. Second generation antipsychotics (SGAs) have metabolic syndrome issues with weight gain, increase in prolactin, increased waist circumference, increased lipids, and increased glucose. Thus routine monitoring of weight, metabolic labs, etc. is indicated. A general rank ordering of antipsychotics that have the greatest to the least risk of metabolic effects is olanzapine, quetiapine, risperidone, ziprasidone, and aripiprazole. However, weight gain can occur with all of these drugs and considerable variability exists among patients receiving the same drug regarding the risk of metabolic effects. Anti-psychotic agents not only increase the risk of metabolic disorder, they also increase the risk of CVA, akathisia, and movement disorders including EPS or tardive dyskinesia (more common with first generation antipsychotics) and more. Medication Management and Follow-Up - Plan: - Schedule follow-up appointments every 1-3 months to monitor the patient's response to the medication regimen. - Patient educated on all medications including potential benefits, side effects, risks. Educated on proper dosing schedule and importance of compliance 08/31/2024 Hypertension, unspecified type (ICD-10 - I10) High Blood Pressure: Care Instructions material was published, Learning About High Blood Pressure material was published, Learning About High Blood Pressure material was published, High Blood Pressure: Care Instructions material was published 1.Bipolar II- Discuss and educated on rx options- Caplyta Caplyta 21 mg in evening - - educated on all rx refer to therapy- will schedule [facility]- patient cxl appt,-went once and didn't go back 2.Anxiety - Zoloft 50 mg daily- improved restless legs and feet - no refill needed today stable 3.ADHD combination discuss and educated on stimualtes and non- stimulates Straterra 40 mg daily in am- stable no refill needed today no control substance prescribed by [facility] r/t cannabis use ANA-2 TEST partial completed 01/20/24- complete the ANA-2 test for results 01/27/24 ANA-2 results ADHD combination 4. Cannabis use no control substance presribed by [facility] Reinforce the importance of avoiding recreational drug use due to potential neurotoxicity and interactions with prescribed medications. http__s://www.ni .nih.gov/healt h/topics/mental- health-medicatio ns http__s://www.na mi.org/About-Men ariadna-Illness/Alicia tments/Mental-He alth-Medications Recommend decrease/stop cannabis use as it may be negatively impacting mood, motivation, anxiety, sleep, focus; can also contribute to development of psychosis 5. hx elevated blood pressure- wnl monitor B/P- see PCP- no B/P rx heart healthy diet and excise limit salt and caffiene monitor B/P educated on healthy B/P 120/80 not on B/P rx PCP with B/P Rose Patel educated on all medications, benefits, side effects and risk, and educated on depression, anxiety, and ADHD, mood d/o and educated on compliance of medications, metabolic and movement d/o education appointment is, continue therapy discussion with patient about course of treatment and patient instructions. education on serotonin syndrome SSRI/SNRI side effects discussed including but not limited to, gastric upset, nausea, vomiting, diarrhea and/or constipation, weight changes, sexual side effects including loss of libido, increased suicidal thoughts/behavio rs in children and young adults, and serotonin syndrome. Second generation antipsychotics (SGAs) have metabolic syndrome issues with weight gain, increase in prolactin, increased waist circumference, increased lipids, and increased glucose. Thus routine monitoring of weight, metabolic labs, etc. is indicated. A general rank ordering of antipsychotics that have the greatest to the least risk of metabolic effects is olanzapine, quetiapine, risperidone, ziprasidone, and aripiprazole. However, weight gain can occur with all of these drugs and considerable variability exists among patients receiving the same drug regarding the risk of metabolic effects. Anti-psychotic agents not only increase the risk of metabolic disorder, they also increase the risk of CVA, akathisia, and movement disorders including EPS or tardive dyskinesia (more common with first generation antipsychotics) and more. Medication Management and Follow-Up - Plan: - Schedule follow-up appointments every 1-3 months to monitor the patient's response to the medication regimen. - Patient educated on all medications including potential benefits, side effects, risks. Educated on proper dosing schedule and importance of compliance 07/26/2024 Hypertension, unspecified type (ICD-10 - I10) High Blood Pressure: Care Instructions material was published, Learning About High Blood Pressure material was published, Learning About High Blood Pressure material was published, High Blood Pressure: Care Instructions material was published 1.Bipolar II- Discuss and educated on rx options- Caplyta Caplyta 21 mg in evening - samples given last visit and rx filled - no refill needed today educated on all rx refer to therapy- will schedule [facility]- patient cxl appt,-went once and didn't go back 2.Anxiety - decrease Zoloft 50 mg daily- r/o restless legs and feet - no refill needed today will split 100 mg dose has at home stable 3.ADHD combination discuss and educated on stimualtes and non- stimulates Straterra 40 mg daily in am- stable no control substance prescribed by [facility] r/t cannabis use ANA-2 TEST partial completed 01/20/24- complete the ANA-2 test for results 01/27/24 ANA-2 results ADHD combination 4. Cannabis use no control substance presribed by [facility] Reinforce the importance of avoiding recreational drug use due to potential neurotoxicity and interactions with prescribed medications. http__s://www.ni .nih.gov/healt h/topics/mental- health-medicatio ns http__s://www.na mi.org/About-Men ariadna-Illness/Alicia tments/Mental-He alth-Medications Recommend decrease/stop cannabis use as it may be negatively impacting mood, motivation, anxiety, sleep, focus; can also contribute to development of psychosis 5. hx elevated blood pressure- wnl monitor B/P- see PCP- no B/P rx heart healthy diet and excise limit salt and caffiene monitor B/P educated on healthy B/P 120/80 not on B/P rx PCP with B/P Rose Patel educated on all medications, benefits, side effects and risk, and educated on depression, anxiety, and ADHD, mood d/o and educated on compliance of medications, metabolic and movement d/o education appointment is, continue therapy discussion with patient about course of treatment and patient instructions. education on serotonin syndrome SSRI/SNRI side effects discussed including but not limited to, gastric upset, nausea, vomiting, diarrhea and/or constipation, weight changes, sexual side effects including loss of libido, increased suicidal thoughts/behavio rs in children and young adults, and serotonin syndrome. Second generation antipsychotics (SGAs) have metabolic syndrome issues with weight gain, increase in prolactin, increased waist circumference, increased lipids, and increased glucose. Thus routine monitoring of weight, metabolic labs, etc. is indicated. A general rank ordering of antipsychotics that have the greatest to the least risk of metabolic effects is olanzapine, quetiapine, risperidone, ziprasidone, and aripiprazole. However, weight gain can occur with all of these drugs and considerable variability exists among patients receiving the same drug regarding the risk of metabolic effects. Anti-psychotic agents not only increase the risk of metabolic disorder, they also increase the risk of CVA, akathisia, and movement disorders including EPS or tardive dyskinesia (more common with first generation antipsychotics) and more. Medication Management and Follow-Up - Plan: - Schedule follow-up appointments every 1-3 months to monitor the patient's response to the medication regimen. - Patient educated on all medications including potential benefits, side effects, risks. Educated on proper dosing schedule and importance of compliance 06/21/2024 Bipolar II disorder (ICD-10 - F31.81) Bipolar Disorder: Care Instructions material was published, Learning About Movement Disorders From Antipsychotic Medicines material was published, Learning About Mood Disorders material was published, Learning About How to Get Help During a Mental Health Crisis material was published, Bipolar Disorder: Care Instructions material was published, Learning About Mood Disorders material was published, Learning About Movement Disorders From Antipsychotic Medicines material was published, Learning About How to Get Help During a Mental Health Crisis material was published, Learning About Movement Disorders From Antipsychotic Medicines material was published 1.Bipolar II- Discuss and educated on rx options- may switch to Caplyta pateint is expressing Akathisia in legs and restelss improved but still have daily and also in feet D/C Abilify 2.5 mg at bedtime- ADD Caplyta 10.5 mg in evening - sampls given educated on all rx refer to therapy- will schedule [facility]- patient cxl appt, 2.Anxiety -Zoloft 100 mg daily stable 3.ADHD combination discuss and educated on stimualtes and non- stimulates Straterra 40 mg daily in am- stable no control substance prescribed by [facility] r/t cannabis use ANA-2 TEST partial completed 01/20/24- complete the ANA-2 test for results 01/27/24 ANA-2 results ADHD combination 4. Cannabis use no control substance presribed by [facility] Reinforce the importance of avoiding recreational drug use due to potential neurotoxicity and interactions with prescribed medications. http__s://www.ni mh.nih.gov/healt h/topics/mental- health-medicatio ns http__s://www.na mi.org/About-Men ariadna-Illness/Alicia tments/Mental-He alth-Medications Recommend decrease/stop cannabis use as it may be negatively impacting mood, motivation, anxiety, sleep, focus; can also contribute to development of psychosis 5. hx elevated blood pressure- monitor B/P- see PCP- no B/P rx heart healthy diet and excise limit salt and caffiene monitor B/P educated on healthy B/P 120/80 not on B/P rx PCP with B/P [facility] educated on all medications, benefits, side effects and risk, and educated on depression, anxiety, and ADHD, mood d/o and educated on compliance of medications, metabolic and movement d/o education appointment is, continue therapy discussion with patient about course of treatment and patient instructions. education on serotonin syndrome SSRI/SNRI side effects discussed including but not limited to, gastric upset, nausea, vomiting, diarrhea and/or constipation, weight changes, sexual side effects including loss of libido, increased suicidal thoughts/behavio rs in children and young adults, and serotonin syndrome. Second generation antipsychotics (SGAs) have metabolic syndrome issues with weight gain, increase in prolactin, increased waist circumference, increased lipids, and increased glucose. Thus routine monitoring of weight, metabolic labs, etc. is indicated. A general rank ordering of antipsychotics that have the greatest to the least risk of metabolic effects is olanzapine, quetiapine, risperidone, ziprasidone, and aripiprazole. However, weight gain can occur with all of these drugs and considerable variability exists among patients receiving the same drug regarding the risk of metabolic effects. Anti-psychotic agents not only increase the risk of metabolic disorder, they also increase the risk of CVA, akathisia, and movement disorders including EPS or tardive dyskinesia (more common with first generation antipsychotics) and more. Medication Management and Follow-Up - Plan: - Schedule follow-up appointments every 1-3 months to monitor the patient's response to the medication regimen. - Patient educated on all medications including potential benefits, side effects, risks. Educated on proper dosing schedule and importance of compliance 06/07/2024 Akathisia (ICD-10 - G25.71) 1.Bipolar II- Discuss and educated on rx options- may switch to Caplyta or Vraylar next visit pateint is expressing Akathisia in legs - r/o Abilify will decrease Abilify to 2.5 mg at bedtime Abilify 2.5 mg at bedtime- no refill needed today- has 5 mg dose at home to split - no refill needed refer to therapy- will schedule [facility]- patient cxl appt, 2.Anxiety -Zoloft 100 mg daily discuss- no refill needed today 3.ADHD combination discuss and educated on stimualtes and non- stimulates Straterra 40 mg daily in am- no refill needed no control substance prescribed by [facility] r/t cannabis use ANA-2 TEST partial completed 01/20/24- complete the ANA-2 test for results 01/27/24 ANA-2 results ADHD combination 4. Cannabis use no control substance presribed by [facility] Reinforce the importance of avoiding recreational drug use due to potential neurotoxicity and interactions with prescribed medications. http__s://www.[facility].nih.gov/healt h/topics/mental- health-medicatio ns http__s://www.na mi.org/About-Men ariadna-Illness/Alicia tments/Mental-He alth-Medications Recommend decrease/stop cannabis use as it may be negatively impacting mood, motivation, anxiety, sleep, focus; can also contribute to development of psychosis 5. hx elevated blood pressure- stable today monitor B/P- see PCP- no B/P rx heart healthy diet and excise limit salt and caffiene monitor B/P educated on healthy B/P 120/80 not on B/P rx PCP with B/P [facility] educated on all medications, benefits, side effects and risk, and educated on depression, anxiety, and ADHD, mood d/o and educated on compliance of medications, metabolic and movement d/o education appointment is, continue therapy discussion with patient about course of treatment and patient instructions. education on serotonin syndrome SSRI/SNRI side effects discussed including but not limited to, gastric upset, nausea, vomiting, diarrhea and/or constipation, weight changes, sexual side effects including loss of libido, increased suicidal thoughts/behavio rs in children and young adults, and serotonin syndrome. Second generation antipsychotics (SGAs) have metabolic syndrome issues with weight gain, increase in prolactin, increased waist circumference, increased lipids, and increased glucose. Thus routine monitoring of weight, metabolic labs, etc. is indicated. A general rank ordering of antipsychotics that have the greatest to the least risk of metabolic effects is olanzapine, quetiapine, risperidone, ziprasidone, and aripiprazole. However, weight gain can occur with all of these drugs and considerable variability exists among patients receiving the same drug regarding the risk of metabolic effects. Anti-psychotic agents not only increase the risk of metabolic disorder, they also increase the risk of CVA, akathisia, and movement disorders including EPS or tardive dyskinesia (more common with first generation antipsychotics) and more. Medication Management and Follow-Up - Plan: - Schedule follow-up appointments every 1-3 months to monitor the patient's response to the medication regimen. - Patient educated on all medications including potential benefits, side effects, risks. Educated on proper dosing schedule and importance of compliance 06/21/2024 ADHD (attention deficit hyperactivity disorder), combined type (ICD-10 - F90.2) Attention Deficit Hyperactivity Disorder (ADHD) in Adults: Care Instructions material was published, Learning About Attention Deficit Hyperactivity Disorder (ADHD) in Adults material was published, Learning About Stimulant Medicines for Attention Deficit Hyperactivity Disorder (ADHD) material was published, Learning About Attention Deficit Hyperactivity Disorder (ADHD) in Adults material was published, Attention Deficit Hyperactivity Disorder (ADHD) in Adults: Care Instructions material was published 1.Bipolar II- Discuss and educated on rx options- may switch to Caplyta pateint is expressing Akathisia in legs and restelss improved but still have daily and also in feet D/C Abilify 2.5 mg at bedtime- ADD Caplyta 10.5 mg in evening - sampls given educated on all rx refer to therapy- will schedule [facility]- patient cxl appt, 2.Anxiety -Zoloft 100 mg daily stable 3.ADHD combination discuss and educated on stimualtes and non- stimulates Straterra 40 mg daily in am- stable no control substance prescribed by [facility] r/t cannabis use ANA-2 TEST partial completed 01/20/24- complete the ANA-2 test for results 01/27/24 ANA-2 results ADHD combination 4. Cannabis use no control substance presribed by [facility] Reinforce the importance of avoiding recreational drug use due to potential neurotoxicity and interactions with prescribed medications. http__s://www.ni mh.nih.gov/healt h/topics/mental- health-medicatio ns http__s://www.na mi.org/About-Men ariadna-Illness/Alicia tments/Mental-He alth-Medications Recommend decrease/stop cannabis use as it may be negatively impacting mood, motivation, anxiety, sleep, focus; can also contribute to development of psychosis 5. hx elevated blood pressure- monitor B/P- see PCP- no B/P rx heart healthy diet and excise limit salt and caffiene monitor B/P educated on healthy B/P 120/80 not on B/P rx PCP with B/P [facility] educated on all medications, benefits, side effects and risk, and educated on depression, anxiety, and ADHD, mood d/o and educated on compliance of medications, metabolic and movement d/o education appointment is, continue therapy discussion with patient about course of treatment and patient instructions. education on serotonin syndrome SSRI/SNRI side effects discussed including but not limited to, gastric upset, nausea, vomiting, diarrhea and/or constipation, weight changes, sexual side effects including loss of libido, increased suicidal thoughts/behavio rs in children and young adults, and serotonin syndrome. Second generation antipsychotics (SGAs) have metabolic syndrome issues with weight gain, increase in prolactin, increased waist circumference, increased lipids, and increased glucose. Thus routine monitoring of weight, metabolic labs, etc. is indicated. A general rank ordering of antipsychotics that have the greatest to the least risk of metabolic effects is olanzapine, quetiapine, risperidone, ziprasidone, and aripiprazole. However, weight gain can occur with all of these drugs and considerable variability exists among patients receiving the same drug regarding the risk of metabolic effects. Anti-psychotic agents not only increase the risk of metabolic disorder, they also increase the risk of CVA, akathisia, and movement disorders including EPS or tardive dyskinesia (more common with first generation antipsychotics) and more. Medication Management and Follow-Up - Plan: - Schedule follow-up appointments every 1-3 months to monitor the patient's response to the medication regimen. - Patient educated on all medications including potential benefits, side effects, risks. Educated on proper dosing schedule and importance of compliance 08/31/2024 ADHD (attention deficit hyperactivity disorder), combined type (ICD-10 - F90.2) Attention Deficit Hyperactivity Disorder (ADHD) in Adults: Care Instructions material was published, Learning About Attention Deficit Hyperactivity Disorder (ADHD) in Adults material was published, Learning About Stimulant Medicines for Attention Deficit Hyperactivity Disorder (ADHD) material was published, Learning About Attention Deficit Hyperactivity Disorder (ADHD) in Adults material was published, Attention Deficit Hyperactivity Disorder (ADHD) in Adults: Care Instructions material was published 1.Bipolar II- Discuss and educated on rx options- Caplyta Caplyta 21 mg in evening - - educated on all rx refer to therapy- will schedule [facility]- patient cxl appt,-went once and didn't go back 2.Anxiety - Zoloft 50 mg daily- improved restless legs and feet - no refill needed today stable 3.ADHD combination discuss and educated on stimualtes and non- stimulates Straterra 40 mg daily in am- stable no refill needed today no control substance prescribed by [facility] r/t cannabis use ANA-2 TEST partial completed 01/20/24- complete the ANA-2 test for results 01/27/24 ANA-2 results ADHD combination 4. Cannabis use no control substance presribed by [facility] Reinforce the importance of avoiding recreational drug use due to potential neurotoxicity and interactions with prescribed medications. http__s://www.ni .nih.gov/healt h/topics/mental- health-medicatio ns http__s://www.na mi.org/About-Men ariadna-Illness/Alicia tments/Mental-He alth-Medications Recommend decrease/stop cannabis use as it may be negatively impacting mood, motivation, anxiety, sleep, focus; can also contribute to development of psychosis 5. hx elevated blood pressure- wnl monitor B/P- see PCP- no B/P rx heart healthy diet and excise limit salt and caffiene monitor B/P educated on healthy B/P 120/80 not on B/P rx PCP with B/P Rose Patel educated on all medications, benefits, side effects and risk, and educated on depression, anxiety, and ADHD, mood d/o and educated on compliance of medications, metabolic and movement d/o education appointment is, continue therapy discussion with patient about course of treatment and patient instructions. education on serotonin syndrome SSRI/SNRI side effects discussed including but not limited to, gastric upset, nausea, vomiting, diarrhea and/or constipation, weight changes, sexual side effects including loss of libido, increased suicidal thoughts/behavio rs in children and young adults, and serotonin syndrome. Second generation antipsychotics (SGAs) have metabolic syndrome issues with weight gain, increase in prolactin, increased waist circumference, increased lipids, and increased glucose. Thus routine monitoring of weight, metabolic labs, etc. is indicated. A general rank ordering of antipsychotics that have the greatest to the least risk of metabolic effects is olanzapine, quetiapine, risperidone, ziprasidone, and aripiprazole. However, weight gain can occur with all of these drugs and considerable variability exists among patients receiving the same drug regarding the risk of metabolic effects. Anti-psychotic agents not only increase the risk of metabolic disorder, they also increase the risk of CVA, akathisia, and movement disorders including EPS or tardive dyskinesia (more common with first generation antipsychotics) and more. Medication Management and Follow-Up - Plan: - Schedule follow-up appointments every 1-3 months to monitor the patient's response to the medication regimen. - Patient educated on all medications including potential benefits, side effects, risks. Educated on proper dosing schedule and importance of compliance 07/26/2024 ADHD (attention deficit hyperactivity disorder), combined type (ICD-10 - F90.2) Attention Deficit Hyperactivity Disorder (ADHD) in Adults: Care Instructions material was published, Learning About Attention Deficit Hyperactivity Disorder (ADHD) in Adults material was published, Learning About Stimulant Medicines for Attention Deficit Hyperactivity Disorder (ADHD) material was published, Learning About Attention Deficit Hyperactivity Disorder (ADHD) in Adults material was published, Attention Deficit Hyperactivity Disorder (ADHD) in Adults: Care Instructions material was published 1.Bipolar II- Discuss and educated on rx options- Caplyta Caplyta 21 mg in evening - samples given last visit and rx filled - no refill needed today educated on all rx refer to therapy- will schedule [facility]- patient cxl appt,-went once and didn't go back 2.Anxiety - decrease Zoloft 50 mg daily- r/o restless legs and feet - no refill needed today will split 100 mg dose has at home stable 3.ADHD combination discuss and educated on stimualtes and non- stimulates Straterra 40 mg daily in am- stable no control substance prescribed by [facility] r/t cannabis use ANA-2 TEST partial completed 01/20/24- complete the ANA-2 test for results 01/27/24 ANA-2 results ADHD combination 4. Cannabis use no control substance presribed by [facility] Reinforce the importance of avoiding recreational drug use due to potential neurotoxicity and interactions with prescribed medications. http__s://www.ni .nih.gov/healt h/topics/mental- health-medicatio ns http__s://www.na mi.org/About-Men ariadna-Illness/Alicia tments/Mental-He alth-Medications Recommend decrease/stop cannabis use as it may be negatively impacting mood, motivation, anxiety, sleep, focus; can also contribute to development of psychosis 5. hx elevated blood pressure- wnl monitor B/P- see PCP- no B/P rx heart healthy diet and excise limit salt and caffiene monitor B/P educated on healthy B/P 120/80 not on B/P rx PCP with B/P Rose Patel educated on all medications, benefits, side effects and risk, and educated on depression, anxiety, and ADHD, mood d/o and educated on compliance of medications, metabolic and movement d/o education appointment is, continue therapy discussion with patient about course of treatment and patient instructions. education on serotonin syndrome SSRI/SNRI side effects discussed including but not limited to, gastric upset, nausea, vomiting, diarrhea and/or constipation, weight changes, sexual side effects including loss of libido, increased suicidal thoughts/behavio rs in children and young adults, and serotonin syndrome. Second generation antipsychotics (SGAs) have metabolic syndrome issues with weight gain, increase in prolactin, increased waist circumference, increased lipids, and increased glucose. Thus routine monitoring of weight, metabolic labs, etc. is indicated. A general rank ordering of antipsychotics that have the greatest to the least risk of metabolic effects is olanzapine, quetiapine, risperidone, ziprasidone, and aripiprazole. However, weight gain can occur with all of these drugs and considerable variability exists among patients receiving the same drug regarding the risk of metabolic effects. Anti-psychotic agents not only increase the risk of metabolic disorder, they also increase the risk of CVA, akathisia, and movement disorders including EPS or tardive dyskinesia (more common with first generation antipsychotics) and more. Medication Management and Follow-Up - Plan: - Schedule follow-up appointments every 1-3 months to monitor the patient's response to the medication regimen. - Patient educated on all medications including potential benefits, side effects, risks. Educated on proper dosing schedule and importance of compliance 07/20/2024 Marijuana use (ICD-10 - F12.90) Marijuana Use: Care Instructions material was published, Learning About Cannabis Use Disorder material was published, Marijuana Use: Care Instructions material was published, Learning About Cannabis Use Disorder material was published 1.Bipolar II- Discuss and educated on rx options- Caplyta INCREASE Caplyta 21 mg in evening - samples given educated on all rx refer to therapy- will schedule [facility]- patient cxl appt,-went once and didn't go back 2.Anxiety -Zoloft 100 mg daily stable 3.ADHD combination discuss and educated on stimualtes and non- stimulates Straterra 40 mg daily in am- stable no control substance prescribed by [facility] r/t cannabis use ANA-2 TEST partial completed 01/20/24- complete the ANA-2 test for results 01/27/24 ANA-2 results ADHD combination 4. Cannabis use no control substance presribed by [facility] Reinforce the importance of avoiding recreational drug use due to potential neurotoxicity and interactions with prescribed medications. http__s://www.ni .nih.gov/healt h/topics/mental- health-medicatio ns http__s://www.na mi.org/About-Men ariadna-Illness/Alicia ortegants/Mental-He alth-Medications Recommend decrease/stop cannabis use as it may be negatively impacting mood, motivation, anxiety, sleep, focus; can also contribute to development of psychosis 5. hx elevated blood pressure- monitor B/P- see PCP- no B/P rx heart healthy diet and excise limit salt and caffiene monitor B/P educated on healthy B/P 120/80 not on B/P rx PCP with B/P Rose Patel educated on all medications, benefits, side effects and risk, and educated on depression, anxiety, and ADHD, mood d/o and educated on compliance of medications, metabolic and movement d/o education appointment is, continue therapy discussion with patient about course of treatment and patient instructions. education on serotonin syndrome SSRI/SNRI side effects discussed including but not limited to, gastric upset, nausea, vomiting, diarrhea and/or constipation, weight changes, sexual side effects including loss of libido, increased suicidal thoughts/behavio rs in children and young adults, and serotonin syndrome. Second generation antipsychotics (SGAs) have metabolic syndrome issues with weight gain, increase in prolactin, increased waist circumference, increased lipids, and increased glucose. Thus routine monitoring of weight, metabolic labs, etc. is indicated. A general rank ordering of antipsychotics that have the greatest to the least risk of metabolic effects is olanzapine, quetiapine, risperidone, ziprasidone, and aripiprazole. However, weight gain can occur with all of these drugs and considerable variability exists among patients receiving the same drug regarding the risk of metabolic effects. Anti-psychotic agents not only increase the risk of metabolic disorder, they also increase the risk of CVA, akathisia, and movement disorders including EPS or tardive dyskinesia (more common with first generation antipsychotics) and more. Medication Management and Follow-Up - Plan: - Schedule follow-up appointments every 1-3 months to monitor the patient's response to the medication regimen. - Patient educated on all medications including potential benefits, side effects, risks. Educated on proper dosing schedule and importance of compliance 08/31/2024 Marijuana use (ICD-10 - F12.90) Marijuana Use: Care Instructions material was published, Learning About Cannabis Use Disorder material was published, Marijuana Use: Care Instructions material was published, Learning About Cannabis Use Disorder material was published 1.Bipolar II- Discuss and educated on rx options- Caplyta Caplyta 21 mg in evening - - educated on all rx refer to therapy- will schedule [facility]- patient cxl appt,-went once and didn't go back 2.Anxiety - Zoloft 50 mg daily- improved restless legs and feet - no refill needed today stable 3.ADHD combination discuss and educated on stimualtes and non- stimulates Straterra 40 mg daily in am- stable no refill needed today no control substance prescribed by [facility] r/t cannabis use ANA-2 TEST partial completed 01/20/24- complete the ANA-2 test for results 01/27/24 ANA-2 results ADHD combination 4. Cannabis use no control substance presribed by [facility] Reinforce the importance of avoiding recreational drug use due to potential neurotoxicity and interactions with prescribed medications. http__s://www.ni .nih.gov/healt h/topics/mental- health-medicatio ns http__s://www.na mi.org/About-Men ariadna-Illness/Alicia tments/Mental-He alth-Medications Recommend decrease/stop cannabis use as it may be negatively impacting mood, motivation, anxiety, sleep, focus; can also contribute to development of psychosis 5. hx elevated blood pressure- wnl monitor B/P- see PCP- no B/P rx heart healthy diet and excise limit salt and caffiene monitor B/P educated on healthy B/P 120/80 not on B/P rx PCP with B/P Rose Patel educated on all medications, benefits, side effects and risk, and educated on depression, anxiety, and ADHD, mood d/o and educated on compliance of medications, metabolic and movement d/o education appointment is, continue therapy discussion with patient about course of treatment and patient instructions. education on serotonin syndrome SSRI/SNRI side effects discussed including but not limited to, gastric upset, nausea, vomiting, diarrhea and/or constipation, weight changes, sexual side effects including loss of libido, increased suicidal thoughts/behavio rs in children and young adults, and serotonin syndrome. Second generation antipsychotics (SGAs) have metabolic syndrome issues with weight gain, increase in prolactin, increased waist circumference, increased lipids, and increased glucose. Thus routine monitoring of weight, metabolic labs, etc. is indicated. A general rank ordering of antipsychotics that have the greatest to the least risk of metabolic effects is olanzapine, quetiapine, risperidone, ziprasidone, and aripiprazole. However, weight gain can occur with all of these drugs and considerable variability exists among patients receiving the same drug regarding the risk of metabolic effects. Anti-psychotic agents not only increase the risk of metabolic disorder, they also increase the risk of CVA, akathisia, and movement disorders including EPS or tardive dyskinesia (more common with first generation antipsychotics) and more. Medication Management and Follow-Up - Plan: - Schedule follow-up appointments every 1-3 months to monitor the patient's response to the medication regimen. - Patient educated on all medications including potential benefits, side effects, risks. Educated on proper dosing schedule and importance of compliance 07/20/2024 Akathisia (ICD-10 - G25.71) 1.Bipolar II- Discuss and educated on rx options- Caplyta INCREASE Caplyta 21 mg in evening - samples given educated on all rx refer to therapy- will schedule [facility]- patient cxl appt,-went once and didn't go back 2.Anxiety -Zoloft 100 mg daily stable 3.ADHD combination discuss and educated on stimualtes and non- stimulates Straterra 40 mg daily in am- stable no control substance prescribed by [facility] r/t cannabis use ANA-2 TEST partial completed 01/20/24- complete the ANA-2 test for results 01/27/24 ANA-2 results ADHD combination 4. Cannabis use no control substance presribed by [facility] Reinforce the importance of avoiding recreational drug use due to potential neurotoxicity and interactions with prescribed medications. http__s://www.ni mh.nih.gov/healt h/topics/mental- health-medicatio ns http__s://www.na mi.org/About-Men ariadna-Illness/Alicia tments/Mental-He alth-Medications Recommend decrease/stop cannabis use as it may be negatively impacting mood, motivation, anxiety, sleep, focus; can also contribute to development of psychosis 5. hx elevated blood pressure- monitor B/P- see PCP- no B/P rx heart healthy diet and excise limit salt and caffiene monitor B/P educated on healthy B/P 120/80 not on B/P rx PCP with B/P Rose Patel educated on all medications, benefits, side effects and risk, and educated on depression, anxiety, and ADHD, mood d/o and educated on compliance of medications, metabolic and movement d/o education appointment is, continue therapy discussion with patient about course of treatment and patient instructions. education on serotonin syndrome SSRI/SNRI side effects discussed including but not limited to, gastric upset, nausea, vomiting, diarrhea and/or constipation, weight changes, sexual side effects including loss of libido, increased suicidal thoughts/behavio rs in children and young adults, and serotonin syndrome. Second generation antipsychotics (SGAs) have metabolic syndrome issues with weight gain, increase in prolactin, increased waist circumference, increased lipids, and increased glucose. Thus routine monitoring of weight, metabolic labs, etc. is indicated. A general rank ordering of antipsychotics that have the greatest to the least risk of metabolic effects is olanzapine, quetiapine, risperidone, ziprasidone, and aripiprazole. However, weight gain can occur with all of these drugs and considerable variability exists among patients receiving the same drug regarding the risk of metabolic effects. Anti-psychotic agents not only increase the risk of metabolic disorder, they also increase the risk of CVA, akathisia, and movement disorders including EPS or tardive dyskinesia (more common with first generation antipsychotics) and more. Medication Management and Follow-Up - Plan: - Schedule follow-up appointments every 1-3 months to monitor the patient's response to the medication regimen. - Patient educated on all medications including potential benefits, side effects, risks. Educated on proper dosing schedule and importance of compliance 06/21/2024 Marijuana use (ICD-10 - F12.90) Marijuana Use: Care Instructions material was published, Learning About Cannabis Use Disorder material was published, Marijuana Use: Care Instructions material was published, Learning About Cannabis Use Disorder material was published 1.Bipolar II- Discuss and educated on rx options- may switch to Caplyta pateint is expressing Akathisia in legs and restelss improved but still have daily and also in feet D/C Abilify 2.5 mg at bedtime- ADD Caplyta 10.5 mg in evening - sampls given educated on all rx refer to therapy- will schedule [facility]- patient cxl appt, 2.Anxiety -Zoloft 100 mg daily stable 3.ADHD combination discuss and educated on stimualtes and non- stimulates Straterra 40 mg daily in am- stable no control substance prescribed by [facility] r/t cannabis use ANA-2 TEST partial completed 01/20/24- complete the ANA-2 test for results 01/27/24 ANA-2 results ADHD combination 4. Cannabis use no control substance presribed by [facility] Reinforce the importance of avoiding recreational drug use due to potential neurotoxicity and interactions with prescribed medications. http__s://www.ni .nih.gov/healt h/topics/mental- health-medicatio ns http__s://www.na mi.org/About-Men raiadna-Illness/Alicia tments/Mental-He alth-Medications Recommend decrease/stop cannabis use as it may be negatively impacting mood, motivation, anxiety, sleep, focus; can also contribute to development of psychosis 5. hx elevated blood pressure- monitor B/P- see PCP- no B/P rx heart healthy diet and excise limit salt and caffiene monitor B/P educated on healthy B/P 120/80 not on B/P rx PCP with B/P [facility] educated on all medications, benefits, side effects and risk, and educated on depression, anxiety, and ADHD, mood d/o and educated on compliance of medications, metabolic and movement d/o education appointment is, continue therapy discussion with patient about course of treatment and patient instructions. education on serotonin syndrome SSRI/SNRI side effects discussed including but not limited to, gastric upset, nausea, vomiting, diarrhea and/or constipation, weight changes, sexual side effects including loss of libido, increased suicidal thoughts/behavio rs in children and young adults, and serotonin syndrome. Second generation antipsychotics (SGAs) have metabolic syndrome issues with weight gain, increase in prolactin, increased waist circumference, increased lipids, and increased glucose. Thus routine monitoring of weight, metabolic labs, etc. is indicated. A general rank ordering of antipsychotics that have the greatest to the least risk of metabolic effects is olanzapine, quetiapine, risperidone, ziprasidone, and aripiprazole. However, weight gain can occur with all of these drugs and considerable variability exists among patients receiving the same drug regarding the risk of metabolic effects. Anti-psychotic agents not only increase the risk of metabolic disorder, they also increase the risk of CVA, akathisia, and movement disorders including EPS or tardive dyskinesia (more common with first generation antipsychotics) and more. Medication Management and Follow-Up - Plan: - Schedule follow-up appointments every 1-3 months to monitor the patient's response to the medication regimen. - Patient educated on all medications including potential benefits, side effects, risks. Educated on proper dosing schedule and importance of compliance 07/26/2024 Marijuana use (ICD-10 - F12.90) Marijuana Use: Care Instructions material was published, Learning About Cannabis Use Disorder material was published, Marijuana Use: Care Instructions material was published, Learning About Cannabis Use Disorder material was published 1.Bipolar II- Discuss and educated on rx options- Caplyta Caplyta 21 mg in evening - samples given last visit and rx filled - no refill needed today educated on all rx refer to therapy- will schedule [facility]- patient cxl appt,-went once and didn't go back 2.Anxiety - decrease Zoloft 50 mg daily- r/o restless legs and feet - no refill needed today will split 100 mg dose has at home stable 3.ADHD combination discuss and educated on stimualtes and non- stimulates Straterra 40 mg daily in am- stable no control substance prescribed by [facility] r/t cannabis use ANA-2 TEST partial completed 01/20/24- complete the ANA-2 test for results 01/27/24 ANA-2 results ADHD combination 4. Cannabis use no control substance presribed by [facility] Reinforce the importance of avoiding recreational drug use due to potential neurotoxicity and interactions with prescribed medications. http__s://www.ni mh.nih.gov/healt h/topics/mental- health-medicatio ns http__s://www.na mi.org/About-Men ariadna-Illness/Alicia tments/Mental-He alth-Medications Recommend decrease/stop cannabis use as it may be negatively impacting mood, motivation, anxiety, sleep, focus; can also contribute to development of psychosis 5. hx elevated blood pressure- wnl monitor B/P- see PCP- no B/P rx heart healthy diet and excise limit salt and caffiene monitor B/P educated on healthy B/P 120/80 not on B/P rx PCP with B/P Rose Patel educated on all medications, benefits, side effects and risk, and educated on depression, anxiety, and ADHD, mood d/o and educated on compliance of medications, metabolic and movement d/o education appointment is, continue therapy discussion with patient about course of treatment and patient instructions. education on serotonin syndrome SSRI/SNRI side effects discussed including but not limited to, gastric upset, nausea, vomiting, diarrhea and/or constipation, weight changes, sexual side effects including loss of libido, increased suicidal thoughts/behavio rs in children and young adults, and serotonin syndrome. Second generation antipsychotics (SGAs) have metabolic syndrome issues with weight gain, increase in prolactin, increased waist circumference, increased lipids, and increased glucose. Thus routine monitoring of weight, metabolic labs, etc. is indicated. A general rank ordering of antipsychotics that have the greatest to the least risk of metabolic effects is olanzapine, quetiapine, risperidone, ziprasidone, and aripiprazole. However, weight gain can occur with all of these drugs and considerable variability exists among patients receiving the same drug regarding the risk of metabolic effects. Anti-psychotic agents not only increase the risk of metabolic disorder, they also increase the risk of CVA, akathisia, and movement disorders including EPS or tardive dyskinesia (more common with first generation antipsychotics) and more. Medication Management and Follow-Up - Plan: - Schedule follow-up appointments every 1-3 months to monitor the patient's response to the medication regimen. - Patient educated on all medications including potential benefits, side effects, risks. Educated on proper dosing schedule and importance of compliance 08/31/2024 Akathisia (ICD-10 - G25.71) 1.Bipolar II- Discuss and educated on rx options- Caplyta Caplyta 21 mg in evening - - educated on all rx refer to therapy- will schedule [facility]- patient cxl appt,-went once and didn't go back 2.Anxiety - Zoloft 50 mg daily- improved restless legs and feet - no refill needed today stable 3.ADHD combination discuss and educated on stimualtes and non- stimulates Straterra 40 mg daily in am- stable no refill needed today no control substance prescribed by [facility] r/t cannabis use ANA-2 TEST partial completed 01/20/24- complete the ANA-2 test for results 01/27/24 ANA-2 results ADHD combination 4. Cannabis use no control substance presribed by [facility] Reinforce the importance of avoiding recreational drug use due to potential neurotoxicity and interactions with prescribed medications. http__s://www.ni .nih.gov/healt h/topics/mental- health-medicatio ns http__s://www.na mi.org/About-Men ariadna-Illness/Alicia tments/Mental-He alth-Medications Recommend decrease/stop cannabis use as it may be negatively impacting mood, motivation, anxiety, sleep, focus; can also contribute to development of psychosis 5. hx elevated blood pressure- wnl monitor B/P- see PCP- no B/P rx heart healthy diet and excise limit salt and caffiene monitor B/P educated on healthy B/P 120/80 not on B/P rx PCP with B/P Rose Patel educated on all medications, benefits, side effects and risk, and educated on depression, anxiety, and ADHD, mood d/o and educated on compliance of medications, metabolic and movement d/o education appointment is, continue therapy discussion with patient about course of treatment and patient instructions. education on serotonin syndrome SSRI/SNRI side effects discussed including but not limited to, gastric upset, nausea, vomiting, diarrhea and/or constipation, weight changes, sexual side effects including loss of libido, increased suicidal thoughts/behavio rs in children and young adults, and serotonin syndrome. Second generation antipsychotics (SGAs) have metabolic syndrome issues with weight gain, increase in prolactin, increased waist circumference, increased lipids, and increased glucose. Thus routine monitoring of weight, metabolic labs, etc. is indicated. A general rank ordering of antipsychotics that have the greatest to the least risk of metabolic effects is olanzapine, quetiapine, risperidone, ziprasidone, and aripiprazole. However, weight gain can occur with all of these drugs and considerable variability exists among patients receiving the same drug regarding the risk of metabolic effects. Anti-psychotic agents not only increase the risk of metabolic disorder, they also increase the risk of CVA, akathisia, and movement disorders including EPS or tardive dyskinesia (more common with first generation antipsychotics) and more. Medication Management and Follow-Up - Plan: - Schedule follow-up appointments every 1-3 months to monitor the patient's response to the medication regimen. - Patient educated on all medications including potential benefits, side effects, risks. Educated on proper dosing schedule and importance of compliance 07/26/2024 Akathisia (ICD-10 - G25.71) 1.Bipolar II- Discuss and educated on rx options- Caplyta Caplyta 21 mg in evening - samples given last visit and rx filled - no refill needed today educated on all rx refer to therapy- will schedule [facility]- patient cxl appt,-went once and didn't go back 2.Anxiety - decrease Zoloft 50 mg daily- r/o restless legs and feet - no refill needed today will split 100 mg dose has at home stable 3.ADHD combination discuss and educated on stimualtes and non- stimulates Straterra 40 mg daily in am- stable no control substance prescribed by [facility] r/t cannabis use ANA-2 TEST partial completed 01/20/24- complete the ANA-2 test for results 01/27/24 ANA-2 results ADHD combination 4. Cannabis use no control substance presribed by [facility] Reinforce the importance of avoiding recreational drug use due to potential neurotoxicity and interactions with prescribed medications. http__s://www.ni mh.nih.gov/healt h/topics/mental- health-medicatio ns http__s://www.na mi.org/About-Men ariadna-Illness/Alicia tments/Mental-He alth-Medications Recommend decrease/stop cannabis use as it may be negatively impacting mood, motivation, anxiety, sleep, focus; can also contribute to development of psychosis 5. hx elevated blood pressure- wnl monitor B/P- see PCP- no B/P rx heart healthy diet and excise limit salt and caffiene monitor B/P educated on healthy B/P 120/80 not on B/P rx PCP with B/P Rose Patel educated on all medications, benefits, side effects and risk, and educated on depression, anxiety, and ADHD, mood d/o and educated on compliance of medications, metabolic and movement d/o education appointment is, continue therapy discussion with patient about course of treatment and patient instructions. education on serotonin syndrome SSRI/SNRI side effects discussed including but not limited to, gastric upset, nausea, vomiting, diarrhea and/or constipation, weight changes, sexual side effects including loss of libido, increased suicidal thoughts/behavio rs in children and young adults, and serotonin syndrome. Second generation antipsychotics (SGAs) have metabolic syndrome issues with weight gain, increase in prolactin, increased waist circumference, increased lipids, and increased glucose. Thus routine monitoring of weight, metabolic labs, etc. is indicated. A general rank ordering of antipsychotics that have the greatest to the least risk of metabolic effects is olanzapine, quetiapine, risperidone, ziprasidone, and aripiprazole. However, weight gain can occur with all of these drugs and considerable variability exists among patients receiving the same drug regarding the risk of metabolic effects. Anti-psychotic agents not only increase the risk of metabolic disorder, they also increase the risk of CVA, akathisia, and movement disorders including EPS or tardive dyskinesia (more common with first generation antipsychotics) and more. Medication Management and Follow-Up - Plan: - Schedule follow-up appointments every 1-3 months to monitor the patient's response to the medication regimen. - Patient educated on all medications including potential benefits, side effects, risks. Educated on proper dosing schedule and importance of compliance 06/21/2024 Akathisia (ICD-10 - G25.71) 1.Bipolar II- Discuss and educated on rx options- may switch to Caplyta pateint is expressing Akathisia in legs and restelss improved but still have daily and also in feet D/C Abilify 2.5 mg at bedtime- ADD Caplyta 10.5 mg in evening - sampls given educated on all rx refer to therapy- will schedule [facility]- patient cxl appt, 2.Anxiety -Zoloft 100 mg daily stable 3.ADHD combination discuss and educated on stimualtes and non- stimulates Straterra 40 mg daily in am- stable no control substance prescribed by [facility] r/t cannabis use ANA-2 TEST partial completed 01/20/24- complete the ANA-2 test for results 01/27/24 ANA-2 results ADHD combination 4. Cannabis use no control substance presribed by [facility] Reinforce the importance of avoiding recreational drug use due to potential neurotoxicity and interactions with prescribed medications. http__s://www.ni .nih.gov/healt h/topics/mental- health-medicatio ns http__s://www.na mi.org/About-Men ariadna-Illness/Alicia tments/Mental-He alth-Medications Recommend decrease/stop cannabis use as it may be negatively impacting mood, motivation, anxiety, sleep, focus; can also contribute to development of psychosis 5. hx elevated blood pressure- monitor B/P- see PCP- no B/P rx heart healthy diet and excise limit salt and caffiene monitor B/P educated on healthy B/P 120/80 not on B/P rx PCP with B/P [facility] educated on all medications, benefits, side effects and risk, and educated on depression, anxiety, and ADHD, mood d/o and educated on compliance of medications, metabolic and movement d/o education appointment is, continue therapy discussion with patient about course of treatment and patient instructions. education on serotonin syndrome SSRI/SNRI side effects discussed including but not limited to, gastric upset, nausea, vomiting, diarrhea and/or constipation, weight changes, sexual side effects including loss of libido, increased suicidal thoughts/behavio rs in children and young adults, and serotonin syndrome. Second generation antipsychotics (SGAs) have metabolic syndrome issues with weight gain, increase in prolactin, increased waist circumference, increased lipids, and increased glucose. Thus routine monitoring of weight, metabolic labs, etc. is indicated. A general rank ordering of antipsychotics that have the greatest to the least risk of metabolic effects is olanzapine, quetiapine, risperidone, ziprasidone, and aripiprazole. However, weight gain can occur with all of these drugs and considerable variability exists among patients receiving the same drug regarding the risk of metabolic effects. Anti-psychotic agents not only increase the risk of metabolic disorder, they also increase the risk of CVA, akathisia, and movement disorders including EPS or tardive dyskinesia (more common with first generation antipsychotics) and more. Medication Management and Follow-Up - Plan: - Schedule follow-up appointments every 1-3 months to monitor the patient's response to the medication regimen. - Patient educated on all medications including potential benefits, side effects, risks. Educated on proper dosing schedule and importance of compliance 08/31/2024 Negative depression screening (ICD-10 - Z13.31) 1.Bipolar II- Discuss and educated on rx options- Caplyta Caplyta 21 mg in evening - - educated on all rx refer to therapy- will schedule [facility]- patient cxl appt,-went once and didn't go back 2.Anxiety - Zoloft 50 mg daily- improved restless legs and feet - no refill needed today stable 3.ADHD combination discuss and educated on stimualtes and non- stimulates Straterra 40 mg daily in am- stable no refill needed today no control substance prescribed by [facility] r/t cannabis use ANA-2 TEST partial completed 01/20/24- complete the ANA-2 test for results 01/27/24 ANA-2 results ADHD combination 4. Cannabis use no control substance presribed by [facility] Reinforce the importance of avoiding recreational drug use due to potential neurotoxicity and interactions with prescribed medications. http__s://www.ni .nih.gov/healt h/topics/mental- health-medicatio ns http__s://www.na mi.org/About-Men ariadna-Illness/Alicia tments/Mental-He alth-Medications Recommend decrease/stop cannabis use as it may be negatively impacting mood, motivation, anxiety, sleep, focus; can also contribute to development of psychosis 5. hx elevated blood pressure- wnl monitor B/P- see PCP- no B/P rx heart healthy diet and excise limit salt and caffiene monitor B/P educated on healthy B/P 120/80 not on B/P rx PCP with B/P [facility] educated on all medications, benefits, side effects and risk, and educated on depression, anxiety, and ADHD, mood d/o and educated on compliance of medications, metabolic and movement d/o education appointment is, continue therapy discussion with patient about course of treatment and patient instructions. education on serotonin syndrome SSRI/SNRI side effects discussed including but not limited to, gastric upset, nausea, vomiting, diarrhea and/or constipation, weight changes, sexual side effects including loss of libido, increased suicidal thoughts/behavio rs in children and young adults, and serotonin syndrome. Second generation antipsychotics (SGAs) have metabolic syndrome issues with weight gain, increase in prolactin, increased waist circumference, increased lipids, and increased glucose. Thus routine monitoring of weight, metabolic labs, etc. is indicated. A general rank ordering of antipsychotics that have the greatest to the least risk of metabolic effects is olanzapine, quetiapine, risperidone, ziprasidone, and aripiprazole. However, weight gain can occur with all of these drugs and considerable variability exists among patients receiving the same drug regarding the risk of metabolic effects. Anti-psychotic agents not only increase the risk of metabolic disorder, they also increase the risk of CVA, akathisia, and movement disorders including EPS or tardive dyskinesia (more common with first generation antipsychotics) and more. Medication Management and Follow-Up - Plan: - Schedule follow-up appointments every 1-3 months to monitor the patient's response to the medication regimen. - Patient educated on all medications including potential benefits, side effects, risks. Educated on proper dosing schedule and importance of compliance 02/07/2024 Other Aripiprazole Oral Tablet 5 mg (ARIPIPRAZOLE - ORAL) material was published, Sertraline Oral Tablet (SERTRALINE - ORAL) material was published, Atomoxetine Oral Capsule (ATOMOXETINE - ORAL) material was published 1.Bipolar II- Discuss and educated on rx options Abilify 5 mg at bedtime refer to therapy- will schedule [facility] 2.Anxiety -Zoloft 100 mg daily discuss 3.ADHD combination discuss and educated on stimualtes and non- stimulates will add Straterra 25 mg daily in am for 1 week then increase Straterra 40 mg daily in am no control substance prescribed by [facility] r/t cannabis use ANA-2 TEST partial completed 01/20/24- complete the ANA-2 test for results 01/27/24 ANA-2 results ADHD combination 4. Cannabis use no control substance presribed by [facility] Reinforce the importance of avoiding recreational drug use due to potential neurotoxicity and interactions with prescribed medications. http__s://www.ni .nih.gov/healt h/topics/mental- health-medicatio ns http__s://www.na mi.org/About-Men ariadna-Illness/Alicia tments/Mental-He alth-Medications Recommend decrease/stop cannabis use as it may be negatively impacting mood, motivation, anxiety, sleep, focus; can also contribute to development of psychosis 5. elevated blood pressure monitor B/P- refer to PCP heart healthy diet and excise limit salt and caffiene monitor B/P educated on healthy B/P 120/80 not on B/P rx refer to PCP with B/P [facility] educated on all medications, benefits, side effects and risk, and educated on depression, anxiety, and ADHD, mood d/o and educated on compliance of medications, metabolic and movement d/o education appointment is, continue therapy discussion with patient about course of treatment and patient instructions. education on serotonin syndrome SSRI/SNRI side effects discussed including but not limited to, gastric upset, nausea, vomiting, diarrhea and/or constipation, weight changes, sexual side effects including loss of libido, increased suicidal thoughts/behavio rs in children and young adults, and serotonin syndrome. Second generation antipsychotics (SGAs) have metabolic syndrome issues with weight gain, increase in prolactin, increased waist circumference, increased lipids, and increased glucose. Thus routine monitoring of weight, metabolic labs, etc. is indicated. A general rank ordering of antipsychotics that have the greatest to the least risk of metabolic effects is olanzapine, quetiapine, risperidone, ziprasidone, and aripiprazole. However, weight gain can occur with all of these drugs and considerable variability exists among patients receiving the same drug regarding the risk of metabolic effects. Anti-psychotic agents not only increase the risk of metabolic disorder, they also increase the risk of CVA, akathisia, and movement disorders including EPS or tardive dyskinesia (more common with first generation antipsychotics) and more. Medication Management and Follow-Up - Plan: - Schedule follow-up appointments every 1-3 months to monitor the patient's response to the medication regimen. - Patient educated on all medications including potential benefits, side effects, risks. Educated on proper dosing schedule and importance of compliance 06/21/2024 Other Lumateperone material was published 1.Bipolar II- Discuss and educated on rx options- may switch to Caplyta pateint is expressing Akathisia in legs and restelss improved but still have daily and also in feet D/C Abilify 2.5 mg at bedtime- ADD Caplyta 10.5 mg in evening - sampls given educated on all rx refer to therapy- will schedule [facility]- patient cxl appt, 2.Anxiety -Zoloft 100 mg daily stable 3.ADHD combination discuss and educated on stimualtes and non- stimulates Straterra 40 mg daily in am- stable no control substance prescribed by [facility] r/t cannabis use ANA-2 TEST partial completed 01/20/24- complete the ANA-2 test for results 01/27/24 ANA-2 results ADHD combination 4. Cannabis use no control substance presribed by [facility] Reinforce the importance of avoiding recreational drug use due to potential neurotoxicity and interactions with prescribed medications. http__s://www.ni .nih.gov/healt h/topics/mental- health-medicatio ns http__s://www.na mi.org/About-Men ariadna-Illness/Alicia tments/Mental-He alth-Medications Recommend decrease/stop cannabis use as it may be negatively impacting mood, motivation, anxiety, sleep, focus; can also contribute to development of psychosis 5. hx elevated blood pressure- monitor B/P- see PCP- no B/P rx heart healthy diet and excise limit salt and caffiene monitor B/P educated on healthy B/P 120/80 not on B/P rx PCP with B/P [facility] educated on all medications, benefits, side effects and risk, and educated on depression, anxiety, and ADHD, mood d/o and educated on compliance of medications, metabolic and movement d/o education appointment is, continue therapy discussion with patient about course of treatment and patient instructions. education on serotonin syndrome SSRI/SNRI side effects discussed including but not limited to, gastric upset, nausea, vomiting, diarrhea and/or constipation, weight changes, sexual side effects including loss of libido, increased suicidal thoughts/behavio rs in children and young adults, and serotonin syndrome. Second generation antipsychotics (SGAs) have metabolic syndrome issues with weight gain, increase in prolactin, increased waist circumference, increased lipids, and increased glucose. Thus routine monitoring of weight, metabolic labs, etc. is indicated. A general rank ordering of antipsychotics that have the greatest to the least risk of metabolic effects is olanzapine, quetiapine, risperidone, ziprasidone, and aripiprazole. However, weight gain can occur with all of these drugs and considerable variability exists among patients receiving the same drug regarding the risk of metabolic effects. Anti-psychotic agents not only increase the risk of metabolic disorder, they also increase the risk of CVA, akathisia, and movement disorders including EPS or tardive dyskinesia (more common with first generation antipsychotics) and more. Medication Management and Follow-Up - Plan: - Schedule follow-up appointments every 1-3 months to monitor the patient's response to the medication regimen. - Patient educated on all medications including potential benefits, side effects, risks. Educated on proper dosing schedule and importance of compliance Plan Of Treatment Pending Test Test Name Order Date ADHD Testing 01/20/2024 Future Test Test Name Order Date ADHD Testing 12/26/2023 Next Appt Details Provider Name:Taisha Pavon , 11/30/2024 04:00:00 PM, [address], [facility] [address], [place], [address], Insurance Providers Payer Name Payer Address Payer Phone Subscriber Number Group Number Insured Name Patient Relationship to Insured Coverage Start Date Coverage End Date [facility] [address] [place] [address] [id number] JOANN DEVRIES Self - patient is the insured Medical (General) History Medical History History ICD Code Anxiety Depression Exercise induced asthma Past Psychiatric History: Anxiety Disord er undefined abdominal aortic aneurysm: No atrial fibrillation: No chronic fatigue syndrome: No essential tremor: No hyperlipidemia: No hypertension: No Parkinson's disease: No restless leg syndrome: No stroke: No subdural hematoma: No type 1 diabetes mellitus: No type 2 diabetes mellitus: No vitamin B12 deficiency: No vitamin D deficiency: No
--- OUTSIDE RECORDS SUMMARY | 2024-09-13 18:57 | XMS_ITS | Clinical Summary ---
Author Organization [facility] Address [facility] [place] [address] Care Team Providers Care Edging Catcher Name Role Phone David Traore DO Primary Care Provider + Allergies Active Allergy Reactions Criticality Noted Date Comments Sulfa Antibiotics Rash,Hives Medium 08/05/2021 Medications cetirizine (ZYRTEC) 10 MG tablet Take 1 tablet (10 mg total) by mouth as needed for Allergies. Active sertraline (ZOLOFT) 100 MG tabletIndication s:JED (generalized anxiety disorder),Modera te episode of recurrent major depressive disorder (CMS/HCC) Take 1 tablet (100 mg total) by mouth daily. 90 tablet 10/07/2023 Active ARIPiprazole (ABILIFY) 5 MG tablet Take 1 tablet (5 mg total) by mouth nightly at bedtime. Active azithromycin (ZITHROMAX) 250 MG tabletIndication s:Upper respiratory tract infection, unspecified type Take 2 tabs daily for one day, then take 1 tab daily 6 tablet 02/21/2024 Active Active Problems No known active problems Encounters Date Type Department Care Team Description 09/12/2024 Telephone [facility] Family & Internal Medicine [address] [phone] David Traore, DO Problem (Rt mid quadrant pain ) 09/05/2024 Telephone [facility] Family & Internal [place] [address] [place] [address] David Traore, DO Orders from Last 3 Months Immunizations Immunization Administration Dates Next Due Tdap (Generic) 03/08/2016 Family History Medical History Relation Comments Depression Brother CHF Father Depression Father enlarged heart Father Diabetes Maternal Grandfather Cancer Maternal Grandmother lung Depression Mother Diabetes Mother Thyroid Mother Depression Paternal Aunt Cancer Paternal Grandfather brain Depression Paternal Uncle Diabetes Paternal Uncle Anxiety Sister Relation Status Comments Brother Father Maternal Grandfather Maternal Grandmother Mother Paternal Aunt Paternal Grandfather Paternal Uncle Sister Social History Tobacco Use Types Packs/Day Years Used Date Smoking Tobacco: Former Cigarettes 1 8 2 2017 Passive Smoke Exposure: Never Smokeless Tobacco: Never Tobacco Cessation:Counseling Given: Yes Alcohol Use Standard Drinks/Week Comments Not Currently [...] file Not on file Not on file Last Filed Vital Signs Vital Sign Reading Time Taken Comments Blood Pressure 112/74 08/26/2023 2:20 PM CDT Pulse 91 08/26/2023 2:20 PM CDT Temperature 36.9 C (98.5 F) 08/26/2023 2:20 PM CDT Respiratory Rate 16 08/26/2023 2:20 PM CDT Oxygen Saturation 98% 08/26/2023 2:20 PM CDT Inhaled Oxygen Concentration - - Weight 87.8 kg (193 lb 8 oz) 08/26/2023 2:20 PM CDT Height 164.5 cm (5' 4.75) 08/26/2023 2:20 PM CD T Body Mass Index 32.45 08/26/2023 2:20 PM CDT Plan of Treatment Upcoming Encounters Date Type Department Care Team (Late st Contact Info) Description 10/19/2024 7:20 AM CDT Office Visit [facility] Family & Internal Medicine - [address] [phone] David Traore DO [address] [place] [id number] Health Maintenance Due Date Last Done Comments Cervical Cancer Screening Pa p Smear (Age 30 to 64) Every 3 Years 1983 Annual Physical 12/19/1986 Hepatitis B Vaccines (1 of 3 - 19+ 3-dose series) 12/19/2002 Cervical Cancer Screening Pa p with HPV Testing (Age 30 to 64) Every 5 Years 12/19/2013 Cervical Cancer Screening with HPV 12/19/2013 COVID-19 Vaccine (4 - 2023-2 5 season) 2023 08/19/2021, 05/30/2020, 05/11/2020 Mammogram Screening 2023 PHQ-2 (Physician [place]) 03/14/2024 08/26/2023 DTaP, Tdap and Td Vaccines ( 2 - Td or Tdap) 03/08/2026 03/08/2016 Hepatitis C Addressed 06/03/2021 (Previously completed) Overridden with the intention of not completing the topic HPV Vaccines Aged Out No longer eligi ble based on patient's age to complete this topic Meningococcal B Vaccine Aged Out No l onger eligible based on patient's age to complete this topic Meningococcal Vaccine Aged Out No gurdeep noe eligible based on patient's age to complete this topic Pneumococcal Vaccine: Pediatrics (0 to 5 Years) and At-Risk Patients (6 to 49 Years) Aged Out No longer eligible b ased on patient's age to complete this topic RSV Immunizations Under 20 Months Aged Out No longer eligible b ased on patient's age to complete this topic Insurance [employer] Care Teams Edging Catcher Relationship Specialty Start Date End Date David Traore DO [address] [place] [id number] PCP - General FAMILY PRACTICE 08/26/23
[2024-09-13 18:58] VITALS: BP 130/78; PULSE 97; RESP 20; TEMP 36.6; O2SAT 98
--- OUTSIDE RECORDS SUMMARY | 2024-09-13 18:58 | XMS_ITS | Data Portability ---
Author Organization [facility] [place] Address [address] [place] [address] [place] [address] Assessment No assessment recorded. Plan of Treatment Reminders Order Date Submit Date Provider Last Modified By Organization Details Last Modified Time Details Appointments None recorded. Lab drug screen, urine 2021 [facility], [address], [place], [address], 16:07:53 Referral None recorded. Procedures None recorded. Surgeries None recorded. Imaging US, obstetric, nuchal translucenc y 2021 [email or web address] [place], [address], [place], [address], 19:52:39 US, obstetric, [facility]ina l [facility], [address], [place], [address], 21:09:53 Medication Orders None recorded. Patient TargetsNo targets recorded. Patient InstructionsNo instructions recorded. Reason for Referral None Reported. Results Created Date Observation Date Name Description Value Unit Range Abnormal Flag Note LastModifiedBy Organization Detail LastModifiedTime 04/27/19 22 04/27/2021 IMAGE GUIDE D PAP AND HPV REGAR DLESS image guided Pap, HPV regardless of Pap result SEE RESULT S BELOW CASE REPOR T: Cytol ogy Gynec ologi darlene Repor t Case: [id number] Autho elia devine Provi ginna: Ambika Lenó, KATIE Colle cted: 04/27 1739 Order ing Locat ion: [place] Patho logremigio Recei juliette: 04/28 0809 First Scree n: Mario Whitaker , CT Rescr een: Paulina Clifford, CT Speci men: Scree storm Pap - Image d, Cervi x STATE MENT OF ADEQU ACY: Satis facto ry for evalu ation Trans forma tion zone compo nent absen t The absen ce of an endoc ervic al compo nent was confi rmed by an addit ional domitila ner. FINAL DIAGN OSIS: Negat german for Intra epith elial Lessd velazco or Fabio hinson (NIL) . Elect hattie goldberg itz d by Paulina Clifford, CT on 2021 at 9:02 PM ----- ----- ----- ----- ----- ----- ----- ----- ----- ----- ----- ----- ----- ----- ----- ----- ----- ---- HPV RESUL TS: HPV mRNA E6/E7 : No HPV mRNA Detec roxanna NOTE: This high risk HPV mRNA assay detec ts fourt een high- risk HPV types (16, 18, 31, 33, 35, 39, 45, 51, 52, 56, 58, 59, 66, 68) witho ut diffe renti ation . COMME NT: Note: This speci men was revie wed by a Cytot echno logis t and/o r Patho logis t (as indic ated in this repor t) after evalu ation using the Thinp rep Imagi ng Syste m. CLINI DARLENE INFOR MATIO N: Menst rual Statu s: LMP (if appli cable ): Clini darlene Histo ry/Pr eviou s Pap: Type of Neopl queta (if appli cable ): Signi fican t Clini darlene Findi ngs: Other Histo ry: Hormo keyona (if appli cable ): PAP EDUCA AMINAH L NOTE: The Pap Test is a scree storm test with an inher ent false negat german rate. Liqui d-bas ed sampl ing may decre ase, but will not elimi antoine, false negat german resul ts. A negat german resul t does not precl ude the prese nce and/o r devel opmen t of disea se, since the prese nce of abnor mal cells in the sampl e depen ds on the locat ion of the lesio n and sampl ing techn ique. Nakia nued regul ar scree storm is the best metho d of cance r preve ntion . If repor roxanna cytol ogic findi ng do not corre late with physi darlene and/o r histo rical findi ngs, furth er inves tigat ion is recom rohan d, as clini patience fish nted. Not Available [facility] (Lab) [address], [place], [address], 05/02/2021 22:05:38 04/27/19 22 04/27/2021 TRICH OMONA S VAGIN MARC (RRNA ) trichomonas vaginalis ribosomal RNA (rrna) Negati ve negati ve Not Available [facility] (Lab) [address] [place], [address], 05/02/2021 22:05:38 04/27/19 22 04/27/2021 CT/GC (ANDERS) , THINP REP VIAL chlamydia trachomatis, PCR Negati ve negati ve Not Available [facility] (Lab) [address] [place], [address], 05/02/2021 22:05:39 04/27/19 22 04/27/2021 CT/GC (ANDERS) , THINP REP VIAL neisseria gonorrhoeae, PCR Negati ve negati ve Not Available [facility] (Lab) [address] [place], [address], 05/02/2021 22:05:39 06/04/19 22 06/03/2021 CBC W/DIF F WBC 8.2 10'3/ uL 3.6-10 .2 Not Available [facility] (Lab) [address] , [place], [address], 06/04/2021 11:14:29 06/04/19 22 06/03/2021 CBC W/DIF F RBC 4.20 10'6/ uL (based on docume nted legal sex) 4.10-5 .30 Not Available [facility] (Lab) [address], [place], [address], 06/04/2021 11:14:29 06/04/19 22 06/03/2021 CBC W/DIF F HGB 12.7 g/dL (based on docume nted legal sex) 11.9-1 5.8 Not Available [facility] (Lab) [address], [place], [address], 06/04/2021 11:14:29 06/04/19 22 06/03/2021 CBC W/DIF F HCT 37.8 % (based on docume nted legal sex) 37.4-4 8.3 Not Available [facility] (Lab) [address], [place], [address], 06/04/2021 11:14:29 06/04/19 22 06/03/2021 CBC W/DIF F MCV 90.0 fL 82.0-9 9.0 Not Available [facility] (Lab) [address], [place], [address], 06/04/2021 11:14:29 06/04/19 22 06/03/2021 CBC W/DIF F MCH 30.0 pg 27.0-3 3.0 Not Available [facility] (Lab) [address], [place], [address], 06/04/2021 11:14:29 06/04/19 22 06/03/2021 CBC W/DIF F MCHC 34.0 g/dL 32.0-3 6.0 Not Available [facility] (Lab) [address], [place], [address], 06/04/2021 11:14:29 06/04/19 22 06/03/2021 CBC W/DIF F RDW 13.0 % 11.0-1 5.0 Not Available [facility] (Lab) [address], [place], [address], 06/04/2021 11:14:29 06/04/19 22 06/03/2021 CBC W/DIF F plt 209 10'3/ uL 150-45 0 Not Available [facility] (Lab) [address], [place], [address], 06/04/2021 11:14:29 06/04/19 22 06/03/2021 CBC W/DIF F MPV 10.7 fL 9.8-12 .7 Not Available [facility] (Lab) [address], [place], [address], 06/04/2021 11:14:29 06/04/19 22 06/03/2021 CBC W/DIF F NRBC's 0.00 % 0 Not Available [facility] (Lab) [address], [place], [address], 06/04/2021 11:14:29 06/04/19 22 06/03/2021 CBC W/DIF F absolute NRBCs 0.0 10'3/ uL 0 Not Available [facility] (Lab) [address], [place], [address], 06/04/2021 11:14:29 06/04/19 22 06/03/2021 CBC W/DIF F neutrophils 73.0 % 37.0-7 2.0 high Not Available [facility] (Lab) [address], [place], [address], 06/04/2021 11:14:29 06/04/19 22 06/03/2021 CBC W/DIF F lymphocytes 18.0 % 16.0-4 8.0 Not Available [facility] (Lab) [address], [place], [address], 06/04/2021 11:14:29 06/04/19 22 06/03/2021 CBC W/DIF F monocytes 7.0 % 4.0-14 .0 Not Available [facility] (Lab) [address], [place], [address], 06/04/2021 11:14:29 06/04/19 22 06/03/2021 CBC W/DIF F eosinophils 1.0 % 0.0-9. 0 Not Available [facility] (Lab) [address], [place], [address], 06/04/2021 11:14:29 06/04/19 22 06/03/2021 CBC W/DIF F basophils 0.0 % 0.0-2. 0 Not Available [facility] (Lab) [address], [place], [address], 06/04/2021 11:14:29 06/04/19 22 06/03/2021 CBC W/DIF F immature granulocytes 1.0 % no define d refere nce range Not Available [facility] (Lab) [address], [place], [address], 06/04/2021 11:14:29 06/04/19 22 06/03/2021 CBC W/DIF F absolute neutrophils 6.0 10'3/ uL 1.1-6. 0 Not Available [facility] (Lab) [address], [place], [address], 06/04/2021 11:14:29 06/04/19 22 06/03/2021 CBC W/DIF F absolute lymphocytes 1.5 10'3/ uL 0.7-3. 4 Not Available [facility] (Lab) [address], [place], [address], 06/04/2021 11:14:29 06/04/19 22 06/03/2021 CBC W/DIF F absolute monocytes 0.6 10'3/ uL 0.3-1. 0 Not Available [facility] (Lab) [address], [place], [address], 06/04/2021 11:14:29 06/04/19 22 06/03/2021 CBC W/DIF F absolute eosinophils 0.1 10'3/ uL 0.0-0. 6 Not Available [facility] (Lab) [address], [place], [address], 06/04/2021 11:14:29 06/04/19 22 06/03/2021 CBC W/DIF F absolute basophils 0.0 10'3/ uL 0.0-0. 1 Not Available [facility] (Lab) [address], [place], [address], 06/04/2021 11:14:29 06/04/19 22 06/03/2021 CBC W/DIF F absolute immature granulocytes 0.00 10'3/ uL 0.00-0 .10 2021 12:26 AM: P indic ates parti al resul ts on a panel have been relea sed. Addit ional resul ts will follo w. 2021 12:26 AM: This resul t has been final verif ied. No addit ional or kat ed resul ts are expec roxanna. Not Available [facility] (Lab) [address], [place], [address], 06/04/2021 11:14:29 06/04/19 22 06/03/2021 HEPAT ITIS B SURFA CE ANTIG EN hepatitis B surface antigen Non-re active non-re active This assay was perfo rmed using [employer] n reage nts and test kits. Value s obtai vanessa with other assay metho ds or kits canno t be used inter kat eably . Not Available [facility] (Lab) [address], [place], [address], 06/04/2021 11:14:30 06/04/19 22 06/03/2021 HEPAT ITIS C ANTIB SERGIO SCREE N, REFLE X TO CONFI RMATI ON hepatitis C antibody Non-re active non-re active This assay was perfo rmed using [employer] reage nts and test kits. Value s obtai vanessa with other assay metho ds or kits canno t be used inter kat eably . Not Available [facility] (Lab) [address], [place], [address], 06/04/2021 11:14:30 06/04/19 22 06/03/2021 TSH, REFLE X FREE T4 TSH 1.73 uIU/m L 0.30-5 .33 Not Available [facility] (Lab) [address], [place], [address], 06/04/2021 11:14:30 06/04/19 22 06/03/2021 RUBEL LA IGG ANTIB SERGIO, QUANT rubella antibodies, IgG Reacti ve reacti ve Not Available [facility] (Lab) [address], [place], [address], 06/04/2021 11:14:31 06/04/19 22 06/03/2021 RUBEL LA IGG ANTIB SERGIO, QUANT rubella antibodies, IgG quant 34.0 IU/mL >=10 Non-r eacti ve (Non- Immun e) <10 IU/mL React german (Immu ne) > or = 10 IU/mL Not Available [facility] (Lab) [address], [place], [address], 06/04/2021 11:14:31 06/04/19 22 06/03/2021 HEMOG LOBIN A1C hemoglobin A1C 5.4 % 0-5.6 The Ameri can Diabe zane Assoc iatio n recom mends that a prima ry goal of thera beau maria d be a HBA1C of < 7% and that physi cians yaelul d reeva luate the treat ment regim en in patie nts with HBA1C value s consi stent ly > 8%. <5.7% Shelly l 5.7 - 6.4% Incre ased risk for diabe zane >=6.5 % Diagn ostic of diabe zane <7.0% Goal of thera py >8.0% Actio n sugge sted Not Available [facility] (Lab) [address], [place], [address], 06/04/2021 11:14:31 06/04/19 22 06/03/2021 HIV 1/2 ANTIG EN/AN TIBOD Y, REFLE X CONFI RMATI ON HIV Ag-Ab total quant 0.09 idx <1.00 Not Available [facility] (Lab) [address], [place], [address], 06/04/2021 11:14:32 06/04/19 22 06/03/2021 HIV 1/2 ANTIG EN/AN TIBOD Y, REFLE X CONFI RMATI ON HIV Ag-Ab total Non-re active non-re active Not Available [facility] (Lab) [address], [place], [address], 06/04/2021 11:14:32 06/04/19 22 06/03/2021 HIV 1/2 ANTIG EN/AN TIBOD Y, REFLE X CONFI RMATI ON HIV-1 antibody quant 0.08 idx <1.00 Not Available [facility] (Lab) [address], [place], [address], 06/04/2021 11:14:32 06/04/19 22 06/03/2021 HIV 1/2 ANTIG EN/AN TIBOD Y, REFLE X CONFI RMATI ON HIV-1 antibody Non-re active non-re active Not Available [facility] (Lab) [address], [place], [address], 06/04/2021 11:14:32 06/04/19 22 06/03/2021 HIV 1/2 ANTIG EN/AN TIBOD Y, REFLE X CONFI RMATI ON HIV-1 antigen (P24) quant 0.09 idx <1.00 Not Available [facility] (Lab) [address], [place], [address], 06/04/2021 11:14:32 06/04/19 22 06/03/2021 HIV 1/2 ANTIG EN/AN TIBOD Y, REFLE X CONFI RMATI ON HIV-1 antigen (P24) Non-re active non-re active Not Available [facility] (Lab) [address] [place], [address], 06/04/2021 11:14:32 06/04/19 22 06/03/2021 HIV 1/2 ANTIG EN/AN TIBOD Y, REFLE X CONFI RMATI ON HIV-2 antibody quant 0.06 idx <1.00 Not Available [facility] (Lab) [address] [place], [address], 06/04/2021 11:14:32 06/04/19 22 06/03/2021 HIV 1/2 ANTIG EN/AN TIBOD Y, REFLE X CONFI RMATI ON HIV-2 antibody Non-re active non-re active HIV testi ng is perfo rmed using [employer] Immun oassa y techn ology . The final overa ll HIV Ag-Ab resul t is deter mined based on the final resul t for each indiv idual jacinta te. If any of the jacinta zane has 2 or more repli cates that are REACT GERMAN, the final overa ll HIV Ag-Ab resul t is also React german. A Non-R eacti ve test resul t at any point in the inves tigat ion of indiv idual subje cts does not precl ude the possi bilit y of expos ure to or infec tion with HIV-1 and/o r HIV-2 . Non-R eacti ve resul ts can occur if the quant ity of marke r prese nt in the sampl e is below the detec tion limit s of the assay . React german speci mens must be inves tigat ed by addit ional , more speci fic suppl ement al tests . Speci men confi rmati on will be perfo rmed by the [employer] HIV 1/2 Suppl ement al Assay . The perfo rmanc e of this assay has not been estab lishe d for neona zane and the assay shoul d not be used in indiv idual s young er than 2 years of age. Not Available [facility] (Lab) [address], [place], [address], 06/04/2021 11:14:32 06/04/19 22 06/03/2021 TYPE/ RH/SC REEN ABO/Rh type O POS Not Available [facility] (Lab) [address] [place], [address], 06/04/2021 11:14:32 06/04/19 22 06/03/2021 TYPE/ RH/SC REEN antibody screen NEG Not Available [facility] (Lab) [address], [place], [address], 06/04/2021 11:14:32 06/04/19 22 06/03/2021 TYPE/ RH/SC REEN exp date 2021 23:59 Not Available [facility] (Lab) [address], [place], [address], 06/04/2021 11:14:32 06/04/19 22 06/03/2021 RPR SCREE N/REF YARELY TITER /FTA RPR screen Nonrea ctive nonrea ctive Not Available [facility] (Lab) [address], [place], [address], 06/04/2021 11:14:32 06/04/19 22 06/03/2021 CULTU RE: URINE result report SEE RESULT S BELOW Test: Cultu re: Urine Speci men Sourc e: Urine - Clean Catch Speci men Type: Urine Speci men Date: 2021 3:22 PM Resul t Date: 2021 7:54 PM Resul t Statu s: Final resul t Abnor mal: No Resul ting Lab: [facility] [address] [facility] [address] Tel: CULTU RE ----- ----- ----- --- No growt h in 1 day (dete ction level of 10,00 0 colon ies / ml.) Not Available [facility] (Lab) [address], [place], [address], 06/04/2021 20:56:25 06/04/19 22 06/03/2021 drug scree n, urine Amphetamines : negati ve Not Available [place] [address], [place], [address], 06/03/2021 16:07:40 06/04/19 22 06/03/2021 drug scree n, urine Cannabinoids : negati ve Not Available [place] [address], [place], [address], 06/03/2021 16:07:40 06/04/19 22 06/03/2021 drug scree n, urine Opiates: negati ve Not Available [place] [address], [place], [address], 06/03/2021 16:07:40 06/04/19 22 06/03/2021 drug scree n, urine Benzodiazepi keyona: negati ve Not Available [place] [address], [place], [address], 06/03/2021 16:07:40 04/27/19 22 04/27/2021 US, obste tric, follo w-up No observ ation record ed. [email or web address] [address], [place], [address], 05/08/2021 12:10:43 04/27/19 22 04/27/2021 US, obste tric, trans vagin al No observ ation record ed. [email or web address] [place] [address], [place], [address], 04/27/2021 18:24:46 06/04/19 22 06/03/2021 US, obste tric, nucha l trans lucen cy No observ ation record ed. [email or web address] [place] [address], [place], [address], 06/03/2021 18:19:36 06/04/19 22 06/03/2021 US, obste tric, nucha l trans lucen cy No observ ation record ed. [email or web address] [address], [place], [address], 06/05/2021 16:36:34 Result Notes None recorded. Problems Name Problem SNOMED Code Status Onset Date Resolution Date Notes Provider Name and Address Organization Details Recorded Time Short cervical length in pregnanc y 565608486 Completed 201504/24/2021 Cervical shorteni ng, third trimeste r;Record ed Elsewher e: No Locat ion: [facility] S ource: EHR Coal Sampler steven: N Savanna ce ID: [id number] Linden lable Time: 03:15:00 PM Loly pederson [facility] 2 15:44:24 Gestatio n period, 32 weeks [id number] Completed 201504/24/2021 32 weeks gestatio n of pregnanc y;Record ed Elsewher e: No Locat ion: [facility] S ource: EHR Coal Sampler steven: N Practi ce ID: 0001 Linden lable Time: 03:15:00 PM Loly pederson [facility] 2 15:44:30 Gestatio n period, 29 weeks [id number] Completed 201504/24/2021 29 weeks gestatio n of pregnanc y;Record ed Elsewher e: No Locat ion: [facility] S ource: EHR Coal Sampler steven: N Practi ce ID: 0001 Linden lable Time: 04:00:00 PM Loly pederson, [facility] 2 15:44:08 Pregnanc y, childbir th and puerperi um finding Completed 201504/24/2021 Encounte r for supervis ion of normal first pregnanc y, third trimeste r;Record ed Elsewher e: No [facility] Coal Sampler steven: N Practi ce ID: 0001 Linden lable Time: 11:00:00 AM Loly pederson, [facility] 2 15:36:19 Pregnanc y, childbir th and puerperi um finding Completed 201504/24/2021 Encntr for suprvsn of normal first preg, second trimeste r;Record ed Elsewher e: No Locat ion: Melvin kate [facility] S ource: EHR Coal Sampler steven: N Marcialti ce ID: 0001 Linden lable Time: 11:45:00 AM Loly pederson, [facility] 2 15:36:17 Gestatio n period, 30 weeks [id number] Completed 201504/24/2021 30 weeks gestatio n of pregnanc y;Record ed Elsewher e: No Locat ion: Melvin kate [facility] S ource: EHR Coal Sampler steven: N Marcialti ce ID: 0001 Linden lable Time: 10:30:00 AM Loly pederson, [facility] 2 15:44:27 Exposure to sexually transmis sible disorder Completed 201404/24/2021 STD exposure ;Recorde d Elsewher e: No [facility]: [facility] Coal Sampler steven: N Practi ce ID: 0001 Linden lable Time: 03:15:00 PM Loly Baldev pederson [facility] 2 15:44:10 Gestatio n less than 9 weeks [id number] Completed 201504/24/2021 Less than 8 weeks gestatio n of pregnanc y;Record ed Elsewher e: No Locat ion: Melvin kate [facility] S ource: EHR Coal Sampler steven: N Practi ce ID: 0001 Linden lable Time: 09:45:00 AM Loly pederson, [facility] 2 15:36:23 Gestatio n period, 35 weeks [id number] Completed 201504/24/2021 35 weeks gestatio n of pregnanc y;Record ed Elsewher e: No [facility] S ource: EHR Coal Sampler steven: N Marcialti ce ID: 0001 Linden lable Time: 03:15:00 PM Loly Marietta dacia, [facility] 2 15:44:33 Pelvic and perineal pain [id number] Completed 201404/24/2021 Pelvic pain;Rec orded Elsewher e: No [facility] S ource: EHR Coal Sampler steven: N Practi ce ID: 0001 Linden lable Time: 03:30:00 PM Loly pederson, [facility] 2 15:32:11 Gestatio n period, 28 weeks [id number] Completed 201504/24/2021 28 weeks gestatio n of pregnanc y;Record ed Elsewher e: No [facility]: EHR Coal Sampler steven: N Practi ce ID: 0001 Linden lable Time: 02:00:00 PM Loly De Paz dacia, [facility] 2 15:44:34 Pregnanc y, childbir th and puerperi um finding Completed 201504/24/2021 Encntr for suprvsn of normal first preg, first trimeste r;Record ed Elsewher e: No [facility] S ource: EHR Coal Sampler steven: N Practi ce ID: 0001 Linden lable Time: 09:45:00 AM Loly pederson [facility] 2 15:33:47 Gestatio n period, 33 weeks [id number] Completed 201504/24/2021 33 weeks gestatio n of pregnanc y;Record ed Elsewher e: No [facility] S ource: EHR Coal Sampler steven: N Practi ce ID: 0001 Linden lable Time: 04:00:00 PM Loly pederson, [facility] 2 15:44:31 Pregnanc y detectio n examinat ion Completed 201504/24/2021 Encounte r for pregnanc y test, result positive ;Recorde d Elsewher e: No [facility] S ource: EHR Coal Sampler steven: N Practi ce ID: 0001 Linden lable Time: 09:45:00 AM Loly pederson, [facility] 2 15:44:[address] Concept Completed 201504/24/2021 Encntr for practice managers exam (general ) (routine ) w/o abn findings ;Recorde d Elsewher e: No Locat ion: [facility] S ource: EHR Coal Sampler steven: N Practi ce ID: 0001 Linden lable Time: 09:45:00 AM Loly pedersno [facility] 2 15:32:16 Removal of intraute rine device Completed 201404/24/2021 REMOVAL OF IUD;Mitchell rded Elsewher e: No Locat ion: [facility] S ource: EHR Coal Sampler steven: N Practi ce ID: 0001 Linden lable Time: 03:30:00 PM Loly pederson [facility] 2 15:44:26 Acute sinusiti s [id number] Completed 201504/24/2021 Acute sinusiti s, unspecif ied;Mitchell rded Elsewher e: No Locat ion: Melvin kate [facility] S ource: EHR Coal Sampler steven: N Practi ce ID: 0001 Linden lable Time: 11:15:00 AM Loly pederson, [facility] 2 15:32:05 Gestatio n period, 26 weeks [id number] Completed 201504/24/2021 26 weeks gestatio n of pregnanc y;Record ed Elsewher e: No [facility]: EHR Coal Sampler steven: N Practi ce ID: 0001 Linden lable Time: 01:00:00 PM Loly pederson, [facility] 2 15:44:14 Uterine size for dates discrepa ncy Completed 201504/24/2021 Uterine size-kalie e discrepa ncy, first trimeste r;Record ed Elsewher e: No [facility] Coal Sampler steven: N Practi ce ID: 0001 Linden lable Time: 08:30:00 AM Loly pederson, [facility] 2 15:32:08 Gestatio n period, 24 weeks [id number] Completed 201504/24/2021 24 weeks gestatio n of pregnanc y;Record ed Elsewher e: No Locat ion: [facility] lavinia [facility] S ource: EHR Coal Sampler steven: N Practi ce ID: 0001 Linden lable Time: 11:15:00 AM Loly pederson, [facility] 2 15:32:13 IUCD status [id number] Completed 201404/24/2021 Presence of intraute rine contrace ptive device;R ecorded Elsewher e: No Locat ion: Melvin lavinia [facility] S ource: EHR Coal Sampler steven: N Practi ce ID: 0001 Linden lable Time: 03:20:38 PM Loly pederson [facility] 2 15:32:[address] Concept Completed 201704/24/2021 Encntr for general adult medical exam w/o abnormal findings ;Recorde d Elsewher e: No Locat ion: Melvin kate [facility] S ource: EHR Coal Sampler steven: N Practi ce ID: [id number] [place] Time: 10:30:00 AM Loly pederson [facility] 2 15:32:14 Lochia finding Completed 201604/24/2021 Encounte r for routine postpart um follow-u p;Record ed Elsewher e: No Locat ion: [facility] lavinia [facility] S ource: EHR Coal Sampler steven: N Marcialti ce ID: [id number] [place] Time: 01:00:00 PM Loly pederson [facility] 2 15:36:20 Secondar y amenorrh ea [id number] Completed 201504/24/2021 Secondar y amenorrh ea;Recor ded Elsewher e: No Locat ion: [facility] lavinia [facility] S ource: EHR Coal Sampler steven: N Practi ce ID: [id number] [place] Time: 09:45:00 AM Loly pederson [facility] 2 15:31:57 Procedur e Completed 201604/24/2021 Encounte r for checking , reinsert ion or removal of implanta ble subderma l contrace ptive;Re corded Elsewher e: No Locat ion: Melvin kate [facility] S ource: EHR Coal Sampler steven: N Practi ce ID: 0001 Linden lable Time: 01:45:00 PM Loly pederson [facility] 2 15:33:45 Gestatio n period, 27 weeks [id number] Completed 10/26/ 2016 04/24/2021 27 weeks gestatio n of pregnanc y;Record ed Elsewher e: No Locat ion: [facility] S ource: EHR Coal Sampler steven: N Practi ce ID: 0001 Linden lable Time: 01:00:00 PM Loly pederson, [facility] 2 15:44:13 Gestatio n period, 9 weeks 942214 Completed 201504/24/2021 9 weeks gestatio n of pregnanc y;Record ed Elsewher e: No Locat ion: [facility] S ource: EHR Coal Sampler steven: N Practi ce ID: 0001 Linden lable Time: 08:30:00 AM Loly pederson, [facility] 2 15:44:36 Educatio n Completed 201604/24/2021 Encounte r for other general counseli ng and advice on contrace ption;Re corded Elsewher e: No Locat ion: [facility] S ource: EHR Coal Sampler steven: N Practi ce ID: 0001 Linden lable Time: 01:00:00 PM Loly pederson, [facility] 2 15:32:18 Placenta previa 90428773 Completed 201504/24/2021 Placenta previa specifie d as w/o hemor, second trimeste r;Record ed Elsewher e: No Locat ion: [facility] S ource: EHR Coal Sampler steven: N Practi ce ID: 0001 Linden lable Time: 11:15:00 AM Loly pederson, [facility] 2 15:36:22 Normal pregnanc y in multigra lia [id number] 4106 Completed 201504/24/2021 Encounte r for suprvsn of normal pregnanc y, third trimeste r;Practi ce ID: 0001 Loly pederson, [facility] 2 15:44:11 prematur e rupture of membrane s with onset of labor within 24 hours of rupture [id number] 430770 Completed 201504/24/2021 Pretrm izabel ROM, onset labor w/n 24 hours of rupt, third tri;Prac adam ID: 0001 Loly pederson, [facility] 2 15:31:56 Single live from singleto n pregnanc y [id number] Completed 201504/24/2021 Single live ;Pr actice ID: 0001 Loly De Paz null, [facility] 2 15:32:07 Gestatio n period, 36 weeks 24227712 Completed 201504/24/2021 36 weeks gestatio n of pregnanc y;Practi ce ID: 0001 Loly pederson, [facility] 2 15:44:16 Pregnanc y 50024228 Completed 202110/26/2021 Xi Sloan null, [facility] 2 15:41:57 History of SARS-CoV -2 91042172612 9056897 Completed around time of concepti on. minimal risk. taking ASA Xi Sloan hl null, [facility] 2 15:41:51 Past pregnanc y history of prematur e delivery 061641077 Completed 36.3w. offered prince, pt to decide at 16week CL. Xi Sloan hl null, [facility] 2 15:41:51 Mixed anxiety and depressi ve disorder 780067556 Completed on celexa, will continue through preg. Xi Sloan hl null, [facility] 2 15:41:51 Advanced maternal age 057152830 Completed NIPT Xi Sloan hl null, [facility] 2 15:41:51 Short cervical length in pregnanc y 139792356 Completed G1- was on crinone Xi Martinnstie hl null, [facility] 2 15:41:51 Genital herpes simplex 87384690 Completed valtrex AT 34 WEEKS (h/o PTD) Xi Martinnstie hl null, [facility] 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 2 15:41:51 Genital herpes simplex 84177807 Active valtrex AT 34 WEEKS (h/o PTD) Xi Martinnstie hl null, [facility] 2 15:41:51 History of SARS-CoV -2 09251028278 2567413 Active around time of concepti on. minimal risk. taking ASA Xi Martinnstie hl null, [facility] 2 15:41:51 Past pregnanc y history of prematur e delivery 426073979 Active 36.3w. offered crinone, pt to decide at 16week CL. Xi Romotie hl null, [facility] 2 15:41:51 Advanced maternal age 261245041 Active NIPT Xi Romotie hl null, [facility] 2 15:41:51 Mixed anxiety and depressi ve disorder 875720860 Active on celexa, will continue through preg. Xi Martinnstie hl null, [facility] 2 15:41:51 Problem Notes None recorded. Procedures Surgical History Date Name Laterality Status Provider Name and Address Organization Details Recorded Time 0 Control Implant Removal completed Sandy Mendiola, TOMÁS-BC [address], [place], [address], [place] [facility] 10/09/2019 11:24:31 8 Date of Last Pap Smear completed Loly De Paz [facility] 04/24/2021 15:45:48 Imaging Results None recorded. Procedure Notes None recorded. Medical Equipment None Reported. Allergies Allergen ID Allergen Name Allergen Category Reaction Reaction Severity Criticality Documentation Date Start Date Code Code System Note Provider Name and Address Organization Details Recorded Time 1483 Substance with sulfonami de structure and antibacte rial mechanism of action (substanc e) medicatio n Not available Not available Not available 10/09/2019 26567 8003 SNOMED Rhina Riddle dacia, [facility] 0 10:34:16 Medications Name Sig Start Date Stop Date Status Note LastModified by Organization Details LastModified Time Mirena 21 mcg/24 hr (up to 8 years) 52 mg intrauter ine device 08/14 completed Prescrib ed Elsewher e: Yes Loca tion: [facility] odify By: iwona Encounte r DateTime : 01/24/20 15 03:30:00 PM Not Available Not Available Not Available Augmentin 875 mg-125 mg tablet take 1 tablet by oral route every 12 hours 09/06 completed Prescrib ed Elsewher e: No [facility]at [facility] odify By: iwona Encounte r DateTime : 10/17/19 16 11:15:00 AM Not Available Not Available Not Available acyclovir 400 mg tablet take 1 tablet by oral route 2 times every day 09/06 completed Prescrib ed Elsewher e: No Locat ion: [facility] odify By: iwona Encounte r DateTime : 03/04/20 16 01:05:45 PM Not Available Not Available Not Available citalopra m 20 mg tablet TAKE 1 TABLET BY MOUTH DAILY active Not Available Not Available No t Available Metrogel Vaginal 0.75 % (37.5 mg/5 gram) insert 1 applicat orful by vaginal route every day at bedtime for 5 nights. 02/10 completed Prescrib ed Elsewher e: No Locat ion: Melvin kate [facility] odify By: tamara schilling DateTime : 01/29/20 15 10:10:11 AM Not Available Not Available Not Available Flagyl 500 mg tablet take 1 tablet by oral route 2 times every day 08/14 completed Prescrib ed Elsewher e: No Locat ion: Melvin kate [facility] odify By: iwona Tamayo r DateTime : 02/11/20 15 10:43:48 AM Not Available Not Available Not Available Valtrex 500 mg tablet take 1 tablet by oral route 2 times every day for 10 days 03/10 completed Prescrib ed Elsewher e: No Locat ion: Melvin kate [facility] odify By: [email or web address] Tamayo r DateTime : 03/01/20 16 05:15:00 PM Not Available Not Available Not Available aspirin active Not Available Not Avail able Not Available active Not Available Not Avai lable Not Available Endometri n 100 mg vaginal insert insert 1 vaginal insert by vaginal route every night 09/06 completed Prescrib ed Elsewher e: No Locat ion: Melvin kate [facility] odify By: iwona Tamayo r DateTime : 02/16/20 16 12:52:46 PM Not Available Not Available Not Available 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 2 15:57:37 Date Recorded Body height Body mass index (BMI) Body weight Systolic And Diastolic Provider Name and Address Organization Details Last Updated DateTime 06/03/2021 167.64 cm 31.3 kg/m2 85193.919 78 g 127/84 mm[Hg] Carey Rosariokrystin [facility] 06/03/2021 16:06:05 Date Recorded Body height Body mass index (BMI) Body weight Systolic And Diastolic Provider Name and Address Organization Details Last Updated DateTime 10/09/2019 1981.2 cm 0.2 kg/m2 92115.88 g 109/73 mm[Hg] Rhina Riddle [facility] 10/09/2019 10:42:34 Social History None recorded. Functional Status None recorded. Mental Status None recorded. Family History Relationship Description Onset Age of this Age Resolved Age Notes LastModified by Organization Details LastModified Time Mother Asthma [email or web address] Not available 10/09/2019 10:38:44 Mother Hypertensive disorder [email or web address] Not available 2019 10:39:53 Mother Disorder of thyroid gland [email or web address] Not available 2019 10:40:18 Mother Cyst of ovary [email or web address] Not available 2019 10:41:27 Maternal Grandmother Asthma [email or web address] Not available 09/12 10:38:44 Maternal Grandmother Hypertensive disorder [email or web address] Not available 2019 10:39:53 Maternal Grandmother Carcinoma in situ of colon [email or web address] Not available 2019 10:42:21 Maternal Grandmother Carcinoma in situ of lung [email or web address] Not available 10:42:40 Father Hypertensive disorder [email or web address] Not available 2019 10:39:53 Father Disorder of thyroid gland [email or web address] Not available 2019 10:40:18 Father Disorder of cardiovascul ar system [email or web address] Not available 2019 10:40:59 Father Pulmonary embolism [email or web address] Not available 2019 10:41:48 Paternal Grandmother Hypertensive disorder [email or web address] Not available 2019 10:39:53 Maternal Grandfather Hypertensive disorder [email or web address] Not available 2019 10:39:53 Maternal Grandfather Disorder of cardiovascul ar system [email or web address] Not available 2019 10:40:59 Maternal Grandfather Diabetes mellitus [email or web address] Not available 2019 10:41:14 Brother Hypertensive disorder [email or web address] Not available 2019 10:39:53 Maternal Aunt Hypertensive disorder [email or web address] Not available 2019 10:39:53 Paternal Aunt Hypertensive disorder [email or web address] Not available 2019 10:39:53 Paternal Aunt Carcinoma in situ of uterus [email or web address] Not available 2019 10:43:01 Medical History Condition Response Asthma Y Gynecological History Statement/Question Response Are cycles usually normal Y Date of LMP 02/22/2021 Sexually Active? Y Menses Monthly Y Was last menstrual period normal Y STIs/STDs N HPV Vaccine N Date of Last Pap Smear 12/12/2017 Sexual Problems? N Current Control Method LMP Approximate Obstetrics History GPAL:G 2 P 0 1 0 1 Type Value Premature 1 Living 1 Total 2 Past Encounters Encounter ID Performer Location Encounter Start Date Encounter Closed Date Diagnosis/Indication Diagnosis SNOMED-CT Code Diagnosis ICD10 Code Diagnosis Note [id number] [facility] [address] [address] 10/09/2019 10:26:31 10/09/2019 11:31:31 Removal of subcutaneous contraceptive 820439896 Z30.46 Removal site was cleansed with betadine [id number] lidocaine used for anesthesia . Device was removed in normal fashion without difficulty . Steristips and pressure bandage placed. advised PNV daily [id number] Ambika Garcia CNM [place] [address] [address] 04/27/2021 15:01:18 04/28/2021 17:34:09 Gynecologic examination 19742501 Z01.419 Z11.51 test positive 127602083 Z32.01 Risk factors addressed: Tobacco Cessation, Safe Sexual Practices, environmen ariadna, work hazards, travel restrictio ns, seat belt use.Eat a health well balanced diet, avoid alcohol, tobacco, and street drugs.Enga ge in daily low impact exercise, avoid temperatur e extremes, and cat, rodent, and bird feces.Avoi d travel to areas where zika virus is a concern.Of fered cf/sma/nip t. Pt does desire testing with this . Handouts given and discussed with patient.Ch ildbirth classes recommende d.New OB sheet given.If previous , counseling . Cervical length with next u/s d/t history.Pt verbalizes that she understand s the importance of above instructio ns.All questions were answered.P atient reminded to have annual well woman examinatio n and address [facility] . [id number] Rajesh Hernandez MD [place] [address] [address] 04/27/2021 15:41:00 04/27/2021 16:33:25 Uterine size for dates discrepancy 438937412 O26.849 [id number] Mel Rucker MD [place] [address] [address] 06/03/2021 15:25:49 06/03/2021 16:08:48 screening 349879178 Z36.82 [id number] Mel Rucker MD [place] [address] [address] 06/03/2021 15:26:19 06/04/2021 15:34:26 Routine care 927232324 Z34.91 Advanced m aternal age 910128966 O09.521 Genital he rpes simplex 48642160 A60.9 Past pregn sindy history of premature delivery 683646357 Z87.51 History of SARS-CoV-2 29 50757221 15329740 Z86.16 Mixed anxi ety and depressive disorder 583659813 F41.8 Short cerv ical length in 391378959 O26.879 Health Concerns Section Related Observation LastModified by Organization Detai ls LastModified Time None Recorded Concern Status LastModified by Organization Details LastModified Time None Recorded Advance Directives Directive None Recorded Payers Insurance Date Sequence Insurance Name Policy Number Policy [place] Covered Member ID [place] Member ID Guarantor Name 12/22/2021 1 R [id number] Brandan Devries [id number] Joann castle 04/08/2022 1 [employer] Brandan Devries [id number] Joann castle 04/08/2022 1 [facility] [employer]NAG[employer] - EMPERAT[employer]Z Devries [id number] Joann castle Notes Date Note Type Note Provider Name and Address Organization Details Recorded Time 0 text/html Patient is here for nexplanon removal. Wants to try to achieve . Sandy Mendiola, TOMÁS- [address], [place], [address], [facility] 10/09/2019 11:25:43 2 text/html Generic HPI TemplateReported bypatient.Notes: term vaginal deliveryEDC 10-2 by ultrasoundHistory of thinning cervix. Was on progesterone with 1st . Ambika pederson, [facility] 04/27/2021 18:56:41 OBGyn Episode Ob Episode Information Episode Created Date Number of Fetuses Patient Bloodtype Patient rh Status Prepregnancy Weight lbs Domestic Partner Domestic Partner Phone Father Name Senior Account Clerk Status 10/09/19 20 1 CLOSED Fetus Data First Name Last Name Admitted to NICU Weight (g) Sex Living Outcome Pediatric Complications Fetus ID Race Codes Race Delivery Type 3005.04 7 F Prematur e 3235 Vaginal Delivery Naeem Calculation Initial Naeem Date Initial Exam Date Initial Exam Provider Initial Ultrasound Date Last Menstrual Period Date Ultra Sound Weeks Gestation 0 Eighteen To Twenty Week Naeem Update Ultra Sound Date Fundal Height At Umbil Quickening Date Ultra Sound Latest Weeks Gestation Final Naeem Confirmed By Final Naeem Confirmed Date Final Naeem Date Ultra Sound Latest Days Gestation 0 0 Menstrual History Last Menstrual Date Menses Monthly On Bcp Conception Prior Menses Frequency Hcg Plus Date Menarche Onset Age Delivery Information Delivery Date Delivery Type Labor Anesthesia Weeks Gestation Incision Type Labor Labor Length Hrs Delivered By Post Complications Tubal Sterilization Discharge Date Comments 6 36.2 Discharge Information Feeding Method Contraceptive Method Maternal HG B and HCT Levels Ob Episode Information Episode Created Date Number of Fetuses Patient Bloodtype Patient rh Status Prepregnancy Weight lbs Domestic Partner Domestic Partner Phone Father Name Senior Account Clerk Status 06/04/19 22 1 183 CLOSED Fetus Data First Name Last Name Admitted to NICU Weight (g) Sex Living Outcome Pediatric Complications Fetus ID Race Codes Race Delivery Type [id number] Problems Problem Notes NIPT NL XY Problem Name Start Date End Date Resolution Snomed Code Not e History of SARS-CoV-2 253307928109841827 around ti me of conception. minimal risk. taking ASA Past history of premature delivery 628571323 36.3w. of fered dedenone, pt to decide at 16week CL. Mixed anxiety and depressive disorder 180694160 on celex a, will continue through preg. Advanced maternal age 631118600 NIPT Short cervical length in 194158818 G1- was on crinone Genital herpes simplex 78175750 valtrex AT 34 WEEKS (h/o PTD) Naeem Calculation Initial Naeem Date Initial Exam Date Initial Exam Provider Initial Ultrasound Date Last Menstrual Period Date Ultra Sound Weeks Gestation 12/13/2021 06/03/2021 04/27/2021 7 Eighteen To Twenty Week Naeem Update Ultra Sound Date Fundal Height At Umbil Quickening Date Ultra Sound Latest Weeks Gestation Final Naeem Confirmed By Final Naeem Confirmed Date Final Naeem Date Ultra Sound Latest Days Gestation 0 [email or web address] 06/03/2021 12/14/19 22 0 Pre-melvin Flowsheet Flowsheet Date 06/03/2021 Teran Score Blood Edema Fundus Height Fundus Units Glucose Ketones Leukocytes Nitrite Labor Signs Protein Cervic Dilation Cervic Effacement Cervic Station neg none none trace Type Weight in lbs Pre/Post Dialysis Refused Weight 194.850993764180 BP Diastolic BP Location Tested BP Systolic BP Type 84 127 Fetus Heart Rate Present A 150 Fetus Movement A No Comments Joann is a 35yo at 12.3 for care. SHe has anxiety and depression on celexa, doing well. She has a history of 36.3w delivery following shortened cervix found around 18w, took crinone. She has genital herpes and will take valtrex starting at 34w (earlier due to her delivery). She had COVID around conception time, we discussed risks should be minimal with this timing, but she is taking ASA. We discussed progesterone this , she would like to wait and see what CL shows at 16w. Will do another CL at 20w with anatomy, also. We discussed risks of AMA. NT today wnl. labs and NIPT today. Menstrual History Last Menstrual Date Menses Monthly On Bcp Conception Prior Menses Frequency Hcg Plus Date Menarche Onset Age Genetic Screening And Infection History Question Response Note Mental Retardation/Autism false Patient's Age Will Be 35 Years Or Older At Estim ated Date of Delivery true Thalassemia (Bulgarian, Nigerian, Mediterranean, Or Background): MCV < 80 false Neural Tube Defect (Meningomyelocele, Spina Bifi da, Or Anencephaly) false Congenital Heart Defect false Down Syndrome false Sinan-Sachs (eg, Scientology, Cajun, Bangladeshi-P[place]estone) f alse Keren Disease false Sickle Cell Disease Or Trait () false Hemophilia Or Other Blood Disorders false Muscular Dystrophy false Cystic Fibrosis false Pasco's Chorea false Intellectual Disability/Autism false If Yes, Was Person Tested For Fragile X? false Other Inherited Genetic Or Chromosomal Disorder false Maternal Metabolic Disorder (eg, Type 1 Diabetes , PKU) false Patient Or Baby's Father Had A Child With Defects Not Listed Above false Recurrent Loss, Or A Stillbirth false Medications (including Suppl ements, Vitamins, Herbs, OTC Drugs), Illicit/Recreational Drugs, Alcohol true If Yes, Agent(s) And Strength/Dosage false Any Other Genetic History false Live With Someone With TB Or Exposed To TB false Patient Or Partner Has History Of Genital Herpes false Rash Or Viral Illness Since Last Menstrual Perio d false History Of STD, Gonorrhea, Chlamydia, HPV, Syphi lis false Other Infection History false History of HIV false History of Hepatitis false Prior GBS-infected child false Hemoglobinopathy Or Carrier false Other Structural Defect false Recent Travel History Outside of Country false Delivery Information Delivery Date Delivery Type Labor Anesthesia Weeks Gestation Incision Type Labor Labor Length Hrs Delivered By Post Complications Tubal Sterilization Discharge Date Comments Discharge Information Feeding Method Contraceptive Method Maternal HG B and HCT Levels
[2024-09-14 01:12] LABS: Hematocrit 40.2 % (37.0-47.0); Hemoglobin 13.4 g/dL (12.0-15.0); Immature Granulocyte Percent A 0.4 % (0-0.5); Lymphocytes Absolute Auto 1.66 K/mm3 (0.9-3.2); Mean Corpuscular HGB Conc 33.3 g/dl (32-36); Mean Corpuscular Hemoglobin 29.2 pg (26-34); Mean Corpuscular Volume 87.6 fl (80-100); Nucleated Red Blood Cells Absolute Auto 0.000 K/mm3 (0.0-0.012); Nucleated Red Blood Cells Perc 0.0 % (0.0-0.2); Platelet Count Result 178 k/mm3 (150-375); Red Blood Count 4.59 M/mm3 (4.2-5.4); White Blood Count 7.1 K/mm3 (4.5-10.0)
--- NOTE | 2024-09-14 01:15 | ED.ABDPAIN ---
HPI - Abdominal Pain General Chief Complaint: Abdominal Pain <Sheryl Peter PA-C - Last Filed: 09/14/24 02:57> Stated Complaint: abd pain <Sheryl Peter PA-C - Last Filed: 09/14/24 02:57> Time Seen by Provider: 09/14/24 00:58 <Sheryl Peter PA-C - Last Filed: 09/14/24 02:57> History of Present Illness HPI narrative: 38-year-old female with history of depression and anxiety presents emergency department for intermittent right lower quadrant abdominal pain for the past several weeks. Patient states the pain is located in her right lower quadrant and sometimes in her periumbilical region. She cannot identify any aggravating or alleviating factors. States the pain is sharp when it occurs. Is not currently having significant pain. She went to her OBGYN on 08/30/2024 and had an outpatient ultrasound ordered that was performed on 09/07/2024 which showed an IUD seen and appears to be in good position, unremarkable uterus and ovaries and intact blood flow to bilateral ovaries. The patient states her pain has persisted which prompted her to come to the ED today. She reports intermittent diarrhea. Denies dysuria, hematuria, vaginal discharge or concern for STDs, fever, nausea vomiting, diarrhea. No prior abdominal surgeries. <Sheryl Peter PA-C - Last Filed: 09/14/24 02:57> Related Data Home Medications: Home Medications ?Medication ?Instructions ?Recorded ?Confirmed ?Last Taken ?Type atomoxetine 10 mg capsule 20 mg PO ONCE 08/30/24 08/30/24 Unknown History levonorgestrel (Mirena) 1 device intrauterine ONCE 08/30/24 08/30/24 01/12/22 13:52 History lumateperone 21 mg capsule 21 mg PO DAILY 08/30/24 08/30/24 Unknown History (Caplyta) sertraline 50 mg tablet (Zoloft) 50 mg PO DAILY 08/30/24 08/30/24 Unknown History <Sheryl Peter PA-C - Last Filed: 09/14/24 02:57> Allergies/Adverse Reactions: Allergies Allergy/AdvReac Type Severity Reaction Status Date / Time Sulfa (Sulfonamide Allergy Unknown unknown Verified 08/30/24 13:31 Antibiotics) sulfanilamide Allergy Unknown unknown Verified 08/30/24 13:31 <Sheryl Peter PA-C - Last Filed: 09/14/24 02:57> Review of Systems Review of Systems: All systems reviewed & are unremarkable except as noted in HPI and below <Sheryl Peter PA-C - Last Filed: 09/14/24 02:57> PMFSH Past Medical History Medical History: Medical History Anxiety Tuberculosis NON ACTIVE Asthma <Sheryl Peter PA-C - Last Filed: 09/14/24 02:57> Surgical History Surgical History: Surgical History [place] teeth removed <Sheryl Peter PA-C - Last Filed: 09/14/24 02:57> Family History Family History: Family History Father Family history of obesity Sibling Family history of mental disorder Mother Family history of osteoarthritis Grandparent Carcinoma of colon Family history of lung cancer Diabetes mellitus <Sheryl Peter PA-C - Last Filed: 09/14/24 02:57> Social History Social History: Social History Smoking packs per day: 0.5 Smoking cigarettes per day: 10.0 Years smoked: 10 Smoking pack-years: 5.00 Smoking status: Former smoker Second hand tobacco smoke exposure: No Smoking end date: 03/14/14 Alcohol intake: never Substance use: never Lack of Transportation: No Lack of Food: Never True Current Housing: I Have Housing Concerned About Future Housing: No Difficulty Paying Gas/Electric Bills: No Difficulty Paying for Meds: No Currently Unemployed: No Education: Trade/Vocational Certificate Difficulty w/ Childcare or Family Care: No Spiritual care concerns: No <Sheryl Peter PA-C - Last Filed: 09/14/24 02:57> Exam Narrative: GENERAL: Well-appearing, well-nourished, and in no acute distress. HEAD: Normocephalic, atraumatic. EYES: EOMI. ENT: Nares clear, no rhinorrhea or epistaxis. Mucous membranes moist. NECK: Supple. CHEST: Clear to auscultation. No respiratory distress. HEART: Regular rate and rhythm. No murmur heard. Normal peripheral pulses. ABDOMEN: Normoactive bowel sounds. Abdomen soft with mild tenderness to the right lower quadrant. No rebound or rigidity. No CVA tenderness. Negative obturator and Rovsing sign. EXTREMITIES: Normal range of motion. No edema. SKIN: Warm, dry, no rash. NEURO: No focal deficits. Alert and oriented x3 <Sheryl Peter PA-C - Last Filed: 09/14/24 02:57> Course Course Emergency Course: Patient care signed over by previous provider pending CT scan and laboratory assessment followed by reassessment and plan of care after imaging. Patient has normal vital signs here and unremarkable laboratory studies. CT scan shows a normal appendix, no bowel obstruction, IUD is in place, fatty infiltrate of the falciform ligament measuring 2.4 cm but no acute intra-abdominal findings otherwise. Patient was made aware of the CT findings and need for outpatient follow-up about this with her primary care provider and GI doctor. She will be provided GI follow-up upon discharge. Her laboratory studies showed no leukocytosis or anemia. Normal platelet count. Electrolytes unremarkable. Normal renal function, normal LFTs, normal glucose. Urinalysis with squamous cell contamination but no obvious infection signs and no urinary symptoms. Negative test. Patient is hemodynamically stable with symptoms under control at this time and she can follow-up on outpatient basis. Patient made aware the CT findings and discharge instructions. <Carlos Hanks MD - Last Filed: 09/14/24 05:53> Vital Signs Vital signs: Vital Signs Temperature 36.6 C 09/13/24 18:58 Pulse Rate 97 09/13/24 18:58 Respiratory Rate 20 09/13/24 18:58 Blood Pressure 130/78 09/13/24 18:58 Pulse Oximetry 98 09/13/24 18:58 Temperature 36.6 C 09/13/24 18:58 Pulse Rate 75 09/14/24 02:35 Respiratory Rate 16 09/14/24 02:35 Blood Pressure 114/65 09/14/24 02:35 Pulse Oximetry 100 09/14/24 02:35 <Sheryl Peter PA-C - Last Filed: 09/14/24 02:57> Vital Signs Temperature 36.6 C 09/13/24 18:58 Pulse Rate 97 09/13/24 18:58 Respiratory Rate 20 09/13/24 18:58 Blood Pressure 130/78 09/13/24 18:58 Pulse Oximetry 98 09/13/24 18:58 Temperature 36.6 C 09/13/24 18:58 Pulse Rate 75 09/14/24 02:35 Respiratory Rate 16 09/14/24 02:35 Blood Pressure 114/65 09/14/24 02:35 Pulse Oximetry 100 09/14/24 02:35 <Carlos Hanks MD - Last Filed: 09/14/24 05:53> MDM - Abdominal Pain MDM Narrative Medical decision making narrative: 38-year-old female presents emergency department for intermittent right lower quadrant/periumbilical abdominal pain for the past several weeks. Triage vitals are stable. Exam is significant for mild tenderness to the right lower quadrant. No rebound or rigidity. Patient is afebrile and nontoxic. Resting comfortably in exam bed. Differential diagnosis includes but is not limited to cholecystitis, appendicitis, UTI, pyelonephritis, ovarian torsion. Will obtain lab work and CT abdomen pelvis with contrast. I did review patient's pelvic ultrasound from 09/07/2024 which was unremarkable with IUD seen in good position and bilateral Doppler flow to both ovaries. I did offer to repeat pelvic ultrasound to evaluate for ovarian torsion however patient politely declined. She is states she is currently not having any significant pain. She politely declines pain medications. Pending lab work and imaging at time of sign-out to Dr. Hanks. <Sheryl Peter PA-C - Last Filed: 09/14/24 02:57> Medical Records Attestation: I reviewed the patient's medical records. <Carlos Hanks MD - Last Filed: 09/14/24 05:53> Lab Data Attestation: I reviewed the patient's lab results. <Carlos Hanks MD - Last Filed: 09/14/24 05:53> Result diagrams: 09/14/24 00:57 09/14/24 00:57 <Sheryl Peter PA-C - Last Filed: 09/14/24 02:57> Labs: Lab Results 09/14/24 09/14/24 Range/Units 00:57 01:04 WBC 7.1 (4.5-10.0) K/mm3 RBC 4.59 (4.2-5.4) M/mm3 Hgb 13.4 (12.0-15.0) g/dL Hct 40.2 (37.0-47.0) % MCV 87.6 (80-100) fl MCH 29.2 (26-34) pg MCHC 33.3 (32-36) g/dl RDW 12.1 (11.5-14.5) % Plt Count 178 (150-375) k/mm3 MPV 10.4 (7.4-10.4) fl Immature Gran % (Auto) 0.4 (0-0.5) % Neut % (Auto) 65.9 (45.5-73.1) % Lymph % (Auto) 23.5 (18.3-44.2) % [place] % (Auto) 7.8 (2.6-8.5) % Eos % (Auto) 2.0 (0-4.4) % Baso % (Auto) 0.4 (0.2-1.2) % Lymph # (Auto) 1.66 (0.9-3.2) K/mm3 [place] # (Auto) 0.6 (0.1-0.6) K/mm3 Eos # (Auto) 0.1 (0-0.3) K/mm3 Baso # (Auto) 0.0 (0.0-0.1) K/mm3 Abs Immat Gran (auto) 0.03 (0.00-0.031) K/mm3 Absolute Neuts (auto) 4.7 (1.3-6.7) K/mm3 Absolute Nucleated RBC 0.000 (0.0-0.012) K/mm3 Nucleated RBC % 0.0 (0.0-0.2) % Sodium 138 (137-145) mmol/L Potassium 4.0 (3.4-5.0) mmol/L Chloride 103 (98-107) mmol/L Carbon Dioxide 26 (22-30) mmol/L Anion Gap 9 (4-12) mmol/L BUN 16 (7-17) mg/dL Creatinine 0.77 (0.7-1.0) mg/dL Estim Creat Clear Calc 91 ml/min Estimated GFR > 60 (59 - ) Glucose 104 (65-110) mg/dL Calcium 9.5 (8.4-10.2) mg/dL Total Bilirubin 0.8 (0.2-1.3) mg/dL AST 35 (14-36) U/L ALT 21 (6-35) U/L Alkaline Phosphatase 54 (38-126) U/L Total Protein 7.9 (6.3-8.2) g/dL Albumin 4.6 (3.5-5.1) g/dL Lipase 82 (23-300) U/L Urine Color Dark yellow (Yellow) Urine Appearance Cloudy H (Clear) Urine pH 5.0 (5.0-9.0) Ur Specific [place] 1.032 (1.001-1.035) Urine Protein Trace (Negative) mg/dL Urine Glucose (UA) Negative (Negative) mg/dL Urine Ketones Trace H (Negative) mg/dL Ur Blood (Man) Trace (Negative) Urine Nitrate Positive H (Negative) Urine Bilirubin 1+ H (Negative) Urine Urobilinogen 1.0 (<2.0) mg/dL Add Ur Microanalysis Reviewed Leukocyte Esterase Rfl Negative (Negative) JOY/UL Urine RBC 6-10 H (0-2) /hpf Urine WBC 0-5 (0-3) /hpf Ur Squamous Epith Cells Moderate (Few) /hpf Urine Bacteria 2+ H /hpf Urine Casts 3-5 Urine Mucus Present /lpf POC Urine HCG, Qual Negative (Negative) <Sheryl Peter PA-C - Last Filed: 09/14/24 02:57> Lab Results 09/14/24 09/14/24 Range/Units 00:57 01:04 WBC 7.1 (4.5-10.0) K/mm3 RBC 4.59 (4.2-5.4) M/mm3 Hgb 13.4 (12.0-15.0) g/dL Hct 40.2 (37.0-47.0) % MCV 87.6 (80-100) fl MCH 29.2 (26-34) pg MCHC 33.3 (32-36) g/dl RDW 12.1 (11.5-14.5) % Plt Count 178 (150-375) k/mm3 MPV 10.4 (7.4-10.4) fl Immature Gran % (Auto) 0.4 (0-0.5) % Neut % (Auto) 65.9 (45.5-73.1) % Lymph % (Auto) 23.5 (18.3-44.2) % [place] % (Auto) 7.8 (2.6-8.5) % Eos % (Auto) 2.0 (0-4.4) % Baso % (Auto) 0.4 (0.2-1.2) % Lymph # (Auto) 1.66 (0.9-3.2) K/mm3 [place] # (Auto) 0.6 (0.1-0.6) K/mm3 Eos # (Auto) 0.1 (0-0.3) K/mm3 Baso # (Auto) 0.0 (0.0-0.1) K/mm3 Abs Immat Gran (auto) 0.03 (0.00-0.031) K/mm3 Absolute Neuts (auto) 4.7 (1.3-6.7) K/mm3 Absolute Nucleated RBC 0.000 (0.0-0.012) K/mm3 Nucleated RBC % 0.0 (0.0-0.2) % Sodium 138 (137-145) mmol/L Potassium 4.0 (3.4-5.0) mmol/L Chloride 103 (98-107) mmol/L Carbon Dioxide 26 (22-30) mmol/L Anion Gap 9 (4-12) mmol/L BUN 16 (7-17) mg/dL Creatinine 0.77 (0.7-1.0) mg/dL Estim Creat Clear Calc 91 ml/min Estimated GFR > 60 (59 - ) Glucose 104 (65-110) mg/dL Calcium 9.5 (8.4-10.2) mg/dL Total Bilirubin 0.8 (0.2-1.3) mg/dL AST 35 (14-36) U/L ALT 21 (6-35) U/L Alkaline Phosphatase 54 (38-126) U/L Total Protein 7.9 (6.3-8.2) g/dL Albumin 4.6 (3.5-5.1) g/dL Lipase 82 (23-300) U/L Urine Color Dark yellow (Yellow) Urine Appearance Cloudy H (Clear) Urine pH 5.0 (5.0-9.0) Ur Specific [place] 1.032 (1.001-1.035) Urine Protein Trace (Negative) mg/dL Urine Glucose (UA) Negative (Negative) mg/dL Urine Ketones Trace H (Negative) mg/dL Ur Blood (Man) Trace (Negative) Urine Nitrate Positive H (Negative) Urine Bilirubin 1+ H (Negative) Urine Urobilinogen 1.0 (<2.0) mg/dL Add Ur Microanalysis Reviewed Leukocyte Esterase Rfl Negative (Negative) JOY/UL Urine RBC 6-10 H (0-2) /hpf Urine WBC 0-5 (0-3) /hpf Ur Squamous Epith Cells Moderate (Few) /hpf Urine Bacteria 2+ H /hpf Urine Casts 3-5 Urine Mucus Present /lpf POC Urine HCG, Qual Negative (Negative) <Carlos Hanks MD - Last Filed: 09/14/24 05:53> Discharge Plan Discharge Clinical Impression: Abdominal pain, right lower quadrant, Abnormal CT scan, liver <Sheryl Peter PA-C - Last Filed: 09/14/24 02:57> Patient Disposition: Home <Sheryl Peter PA-C - Last Filed: 09/14/24 02:57> Condition: Stable <Sheryl Peter PA-C - Last Filed: 09/14/24 02:57> Instructions: Antibiotic Form, Abdominal Pain (ED) <Sheryl Peter PA-C - Last Filed: 09/14/24 02:57> Additional Instructions: Your laboratory studies are all reassuring and no obvious signs of any infection or inflammation. Your CT scan shows nothing going on in the right lower quadrant and you have a normal appearing appendix, normal bowels, normal kidneys. IUD is in place. No acute findings but there is some fatty infiltrate of the falciform ligament which is attached liver measuring up to 2.4 cm. This is unrelated to her complaint today but is an incidental finding that needs close follow-up. Follow-up with your regular doctor and also we will provide you a GI doctor to contact for close follow-up to see you about your recurrent issues. Return with any worsening or new symptoms or any other emergent concerns. <Sheryl Peter PA-C - Last Filed: 09/14/24 02:57> Patient Language: Uzbek <Sheryl Peter PA-C - Last Filed: 09/14/24 02:57> Prescriptions: No Action sertraline [Zoloft] 50 mg tablet 50 mg PO DAILY Caplyta 21 mg capsule 21 mg PO DAILY atomoxetine 10 mg capsule 20 mg PO ONCE Mirena 21 mcg/24hr (up to 8 yrs) 52 mg intrauterine device 1 device intrauterine ONCE Rx Instructions: as a single dose <Sheryl Peter PA-C - Last Filed: 09/14/24 02:57> Follow-up/Referrals: León,DO David [Primary Care Provider] - Stan Cavazos MD [Physician] - 1 Week (Fatty infiltrate of the falciform ligament with masslike appearance, abdominal pain) <Sheryl Peter PA-C - Last Filed: 09/14/24 02:57> Time of Disposition: 04:25 <Sheryl Peter PA-C - Last Filed: 09/14/24 02:57> 04:25 <Carlos Hanks MD - Last Filed: 09/14/24 05:53>
[2024-09-14 01:16] LABS: BEDSIDEPREGUCG Negative (Negative)
[2024-09-14 01:23] LABS: Alanine Aminotransferase 21 U/L (6-35); Albumin Level 4.6 g/dL (3.5-5.1); Alkaline Phosphatase 54 U/L (38-126); Anion Gap 9 mmol/L (4-12); Aspartate Amino Transferase 35 U/L (14-36); Bilirubin,Total 0.8 mg/dL (0.2-1.3); Blood Urea Nitrogen 16 mg/dL (7-17); Calcium 9.5 mg/dL (8.4-10.2); Carbon Dioxide 26 mmol/L (22-30); Chloride 103 mmol/L (98-107); Estimated CRCL calculation 91 ml/min; Estimated Glomerular Filt Rate > 60; Glucose 104 mg/dL (65-110); Lipase 82 U/L (23-300); Potassium 4.0 mmol/L (3.4-5.0); Sodium 138 mmol/L (137-145); Total Protein 7.9 g/dL (6.3-8.2)
--- OUTSIDE RECORDS SUMMARY | 2024-09-14 01:28 | XMS_ITS | Clinical Summary ---
Author Organization [facility] Address [address] [place] [address] Care Team Providers Care Compliance Consultant Name Role Phone Odell Maddox DO Primary Care Provider [phone] Source Comments [facility],non-owned Affiliates and Associated Physician Practices is amultiple site organization consisting of ambulatory clinics and hospital sitesin [place], [place], [place] and [place]. This disclosure is being madepursuant to the Care Everywhere program and may not contain all information available regarding this patient. Last updated 17.[facility] Allergies Active Allergy Reactions Criticality Noted Date [...] topic Insurance CIGNA CIGNA CIGNA Care Teams Compliance Consultant Relationship Specialty Start Date End Date Odell Maddox DO [id number] [place] [address] PCP - General 11/12/21
--- OUTSIDE RECORDS SUMMARY | 2024-09-14 01:29 | XMS_ITS | Patient Health Record ---
Author Organization [facility] As [employer] [facility] Address [address] [place] [address] Care Team Providers Care Hand Spring Former Name Role Phone David Traore DO Primary Care Provider Taisha Mccall Unavailable [phone] MENA WHITE Unavailable Unavailable Guillermo Rocha Unavailable [phone] Diego Myers Unavailable [phone] Allergies Allergen (clinical drug ingredient) Drug/Non Drug [...] Oxazepam (BZO) n 0 - 300 ng/ml 5-fvcusijwzz-3,8-gsezmxkx-1,3-diphenylpyrrolidine (JT P) n 0 - 300 ng/ml Methamphetamine (MET) n 0 - 1000 ng/ml Methylenedioxymethamphetamine (MDMA) n 0 - 500 ng/ml Morphine (MOP 300/LMG8750) n 0 - 300 ng/ml Methadone (MTD) [...] Status Risk Notes Problem Bipolar II disorder (08127108) Bipolar II disorder (F31.81) Active confirmed Problem Screening for cardiovascular system disease (580875294) Encounter for screening for cardiovascular disorders (Z13.6) Active confirmed Problem Dietary management surveillance (792918366) Dietary counseling and surveillance (Z71.3) Active confirmed Problem Depression Screening (511862422) Encounter for screening for depression (Z13.31) Active confirmed Problem Generalized anxiety disorder (85942527) JED (generalized anxiety disorder) (F41.1) Active confirmed Problem Attention deficit hyperactivity disorder (557168120) ADHD (attention deficit hyperactivity disorder), combined type (F90.2) Active confirmed Problem Akathisia (983400984) Akathisia (G25.71) Active confirmed Problem 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) Marijuana use (F12.90) Active confirmed Problem Essential hypertension (21259894) Hypertension, unspecified type (I10) Active confirmed Problem Unable to concentrate (06832708) Unable to concentrate (R41.840) Active confirmed Vital [...] N/A Encounters Encounter Location Date Provider Diagnosis [address] [address] 02/24/2024 Guillermo Rocha [address] [address] 10/04/2023 Taisha Pavon Bipolar II disorder F31.81 and JED (generalized anxiety disorder) F41.[address] [address] 12/26/2023 Taisha Pavon Bipolar II disorder F31.81 ; JED (generalized anxiety disorder) F41.1 ; Hypertension, unspecified type I10 and Unable to concentrate R41.[address] [address] 01/20/2024 Diego Myers Difficulty concentrating R41.[address] [address] 01/27/2024 Taisha Pavon JED (generalized anxiety disorder) F41.1 ; Bipolar II disorder F31.81 ; Hypertension, unspecified type I10 and Unable to concentrate R41.[address] [address] 01/27/2024 Guillermo Rocha Bipolar 2 disorder F31.81 and Generalized anxiety disorder F41.[address] [address] 02/07/2024 Taisha Pavon JED (generalized anxiety disorder) F41.1 ; Bipolar II disorder F31.81 ; Hypertension, unspecified type I10 ; ADHD (attention deficit hyperactivity disorder), combined type F90.2 and Marijuana use F12.[address] [address] 03/05/2024 Taisha Thery JED (generalized anxiety disorder) F41.1 ; Hypertension, unspecified type I10 ; Bipolar II disorder F31.81 ; ADHD (attention deficit hyperactivity disorder), combined type F90.2 and Marijuana use F12.90 [facility] [employer] [facility] [address] [place] [address] 06/07/2024 Taisha Thery Encounter for screen ing for depression Z13.31 ; JED (generalized anxiety disorder) F41.1 ; Hypertension, unspecified type I10 ; Bipolar II disorder F31.81 ; ADHD (attention deficit hyperactivity disorder), combined type F90.2 ; Marijuana use F12.90 and Akathisia G25.[address] [employer] [address] [place] [address] 06/21/2024 Taisha Thery Encounter for screen ing for depression Z13.31 ; Encounter for screening for cardiovascular disorders Z13.6 ; Dietary counseling and surveillance Z71.3 ; JED (generalized anxiety disorder) F41.1 ; Hypertension, unspecified type I10 ; Bipolar II disorder F31.81 ; ADHD (attention deficit hyperactivity disorder), combined type F90.2 ; Marijuana use F12.90 and Akathisia G25.71 [facility] [employer] [place] [id number] [facility] [address] [place] [address] 07/20/2024 Taisha Thery Encounter for screen ing for depression Z13.31 ; Bipolar II disorder F31.81 ; Encounter for screening for cardiovascular disorders Z13.6 ; Dietary counseling and surveillance Z71.3 ; JED (generalized anxiety disorder) F41.1 ; Hypertension, unspecified type I10 ; ADHD (attention deficit hyperactivity disorder), combined type F90.2 ; Marijuana use F12.90 and Akathisia G25.71 [employer] [facility] [address] [place] [address] 07/26/2024 Taisha Thery Encounter for screen ing for depression Z13.31 ; Bipolar II disorder F31.81 ; Encounter for screening for cardiovascular disorders Z13.6 ; Dietary counseling and surveillance Z71.3 ; JED (generalized anxiety disorder) F41.1 ; Hypertension, unspecified type I10 ; ADHD (attention deficit hyperactivity disorder), combined type F90.2 ; Marijuana use F12.90 and Akathisia G25.71 [facility] [employer] [address] 08/17/2024 Taisha [employer] [address] [address] 08/31/2024 Taisha Pavon Encounter for screen ing for depression Z13.31 ; Bipolar II disorder F31.81 ; Encounter for screening for cardiovascular disorders Z13.6 ; Dietary counseling and surveillance Z71.3 ; JED (generalized anxiety disorder) F41.1 ; Hypertension, unspecified type I10 ; ADHD (attention deficit hyperactivity disorder), combined type F90.2 ; Marijuana use F12.90 ; Akathisia G25.71 and Negative depression screening Z13.[address] [address] 12/26/2023 Taisha [employer] [address] [address] 01/23/2024 Taisha [employer] [address] [address] 07/25/2024 Taisha Pavon Assessments Encounter Date Diagnosis (ICD Code) Assessment Notes Treatment Notes Treatment Clinical Notes Section Notes 07/20/2024 Encounter for screening for depression (ICD-10 [...] Cannabis use no control substance presribed by [facility] Reinforce the importance of avoiding recreational drug [...] try. Client born and grew up in [place], [place]. She is the youngest of three, [...] try. Client born and grew up in [place], [place]. She is the youngest of three, brother and sister who she is close with. She is the mother of a 7 year old daughter and two year old son. 10/04/2023 Bipolar II disorder (ICD-10 - F31.81) [...] potential neurotoxicity and interactions with prescribed medications. http__s://www.rust.nih.gov/healt h/topics/mental- health-medicatio ns http__s://www.na mi.org/About-Men ariadna-Illness/Alicia tments/Mental-He [...] dosing schedule and importance of compliance 01/27/2024 JED (generalized anxiety disorder) (ICD-10 - F41.1) [...] compliance 01/20/2024 Difficulty concentrating (ICD-10 - R41.840) 12/26/2023 Bipolar II disorder (ICD-10 - F31.81) [...] potential neurotoxicity and interactions with prescribed medications. http_s://www.[facility].nih.gov/health /topics/mental-h ealth-medication s http_s://www.nam i.org/About-Ment al-Illness/Treat [...] potential neurotoxicity and interactions with prescribed medications. http_s://www.[facility].nih.gov/health /topics/mental-h ealth-medication s http_s://www.nam i.org/About-Ment al-Illness/Treat [...] potential neurotoxicity and interactions with prescribed medications. http__s://www.rust.nih.gov/healt h/topics/mental- health-medicatio ns http__s://www.na mi.org/About-Men ariadna-Illness/Alicia tments/Mental-He [...] II- Discuss and educated on rx options Abiwyattfy 5 mg at bedtime no refill needed [...] Cannabis use no control substance presribed by [employer] Reinforce the importance of avoiding recreational drug [...] /topics/mental-h ealth-medication s http_s://www.nam i.org/About-Ment al-Illness/Treat ments/Mental-Hea [facility]-Medications Recommend decrease/stop cannabis use as it may be negatively impacting mood, motivation, anxiety, sleep, focus; can also contribute to development of psychosis Patient educated on all medications including potential benefits, side effects, risks. Educated on proper dosing schedule and importance of compliance 07/20/2024 Encounter for screening for cardiovascular disorders [...] Cannabis use no control substance presribed by [facility] Reinforce the importance of avoiding recreational drug [...] Cannabis use no control substance presribed by [facility] Reinforce the importance of avoiding recreational drug [...] Cannabis use no control substance presribed by [facility] Reinforce the importance of avoiding recreational drug [...] potential neurotoxicity and interactions with prescribed medications. http__s://www.rust.nih.gov/healt h/topics/mental- health-medicatio ns http__s://www.na mi.org/About-Men ariadna-Illness/Alicia tments/Mental-He [...] Cannabis use no control substance presribed by [facility] Reinforce the importance of avoiding recreational drug [...] r/t cannabis use ANA-2 TEST partial completed 11/8/24- complete the ANA-2 test for results 01/27/24 [...] Cannabis use no control substance presribed by [facility] Reinforce the importance of avoiding recreational drug [...] Cannabis use no control substance presribed by [facility] Reinforce the importance of avoiding recreational drug [...] Cannabis use no control substance presribed by [facility] Reinforce the importance of avoiding recreational drug [...] Cannabis use no control substance presribed by [facility] Reinforce the importance of avoiding recreational drug [...] Cannabis use no control substance presribed by [facility] Reinforce the importance of avoiding recreational drug use due to potential neurotoxicity and interactions with prescribed medications. http__s://www.ni .nih.gov/healt h/topics/mental- health-medicatio ns http__s://www.na mi.org/About-Men ariadna-Illness/Alicai tments/Mental-He alth-Medications Recommend decrease/stop cannabis use as [...] Cannabis use no control substance presribed by [facility] Reinforce the importance of avoiding recreational drug [...] potential neurotoxicity and interactions with prescribed medications. http__s://www.rust.nih.gov/healt h/topics/mental- health-medicatio ns http__s://www.na mi.org/About-Men ariadna-Illness/Alicia tments/Mental-He [...] Cannabis use no control substance presribed by [facility] Reinforce the importance of avoiding recreational drug [...] Name:Taisha Pavon , 11/30/2024 04:00:00 PM, [address] [facility] [address], [facility] [address], [place], [address], Insurance Providers Payer Name Payer Address Payer Phone Subscriber Number Group Number Insured Name Patient Relationship to Insured Coverage Start Date Coverage End Date [facility] [address] [place] [address] [id number] JOANN DEVRIES Self - patient is the [...]
--- OUTSIDE RECORDS SUMMARY | 2024-09-14 01:29 | XMS_ITS | Clinical Summary ---
Author Organization [facility] Address [facility] [place] [address] Care Team Providers Care Ceo And President Name Role Phone David Traore DO Primary [...] Type Department Care Team Description 09/12/2024 Telephone [facility] Family & Internal Medicine [address] [address] David Traore, DO Problem (Rt mid quadrant pain ) 09/05/2024 Telephone [facility] Family & Internal [place] [address] [place] [address] David Traore, DO Orders from [...] Description 10/19/2024 7:20 AM CDT Office Visit [facility] Family & Internal Medicine - [address] [address] David Traore DO [address] [place] [address] Health Maintenance Due Date Last Done Comments [...] 05/30/2020, 05/11/2020 Mammogram Screening 2023 PHQ-2 (Physician Alsey) 03/14/2024 08/26/2023 DTaP, Tdap and Td Vaccines [...] complete this topic Insurance [employer] Care Teams Ceo And President Relationship Specialty Start Date End Date David Traore DO [address] [place] [id number] PCP - General FAMILY PRACTICE 08/26/23
[2024-09-14 01:43] LABS: Add Urine Microscopic? YES; Appearance Urine Cloudy (Clear); Glucose Urine UA Negative (Negative); Leukocyte Esterase Ur Negative LEU/UL (Negative); Need Manual Microscopic Reviewed; Nitrate Urine Positive (Negative); Specific Grav Ur 1.032 (1.001-1.035)
[2024-09-14 02:35] VITALS: BP 114/65; PULSE 75; RESP 16; O2SAT 100
== END 2024-09-14 04:30 | disposition home or self-care (01) ==
PROVIDERS: Student in an Organized Health Care Education/Training Program; Emergency Provider Physician Assistant; PCP Student in an Organized Health Care Education/Training Program
DX: R10.31 Right lower quadrant pain (principal); R93.2 Abnormal findings on diagnostic imaging of liver and biliary tract; Z97.5 Presence of (intrauterine) contraceptive device; Z87.891 Personal history of nicotine dependence
CPT/HCPCS: 36415; 74177; 80053; 81001; 81025; 83690; 85025; 99284; Q9967

== ENCOUNTER 2024-09-14 19:17 | Emergency (ER) | payer OTHER, SELFPAY ==
--- OUTSIDE RECORDS SUMMARY | 2024-09-14 19:19 | XMS_ITS | Clinical Summary ---
Author Organization [facility] Address [address] [facility] [place] [address] Care Team Providers Care Coal Shoveler Name Role Phone Odell Maddox DO Primary Care Provider [phone] Source Comments [facility],non-owned Affiliates and Associated Physician Practices is amultiple site organization consisting of ambulatory clinics and hospital sitesin [place] and [place]. This disclosure is being madepursuant to the Care Everywhere program and may not contain all information available regarding this patient. Last updated 17.[facility] Allergies Active Allergy Reactions Criticality Noted Date [...] topic Insurance CIG[employer] CIGNA CIGNA Care Teams Coal Shoveler Relationship Specialty Start Date End Date Odell Maddox DO [address] [facility] [address] [place] [address] PCP - General 11/12/21
--- OUTSIDE RECORDS SUMMARY | 2024-09-14 19:19 | XMS_ITS | Clinical Summary ---
Author Organization [facility] Address [facility] [place] [address] Care Team Providers Care Auto Damage Insurance Appraiser Name Role Phone David Traore DO Primary [...] Type Department Care Team Description 09/12/2024 Telephone [facility] Family & Internal Medicine [address] [address] David Traore, DO Problem (Rt mid quadrant pain ) 09/05/2024 Telephone [facility] Family & Internal [place] [address] [place] [address] David Traore, DO Orders from [...] Description 10/19/2024 7:20 AM CDT Office Visit [facility] Family & Internal Medicine - [address] [address] David Traore DO [address] [place] [address] Health Maintenance Due Date Last Done Comments [...] 05/30/2020, 05/11/2020 Mammogram Screening 2023 PHQ-2 (Physician Gaston) 03/14/2024 08/26/2023 DTaP, Tdap and Td Vaccines [...] complete this topic Insurance [employer] Care Teams Auto Damage Insurance Appraiser Relationship Specialty Start Date End Date David Traore DO [address] [place] [phone] PCP - General FAMILY PRACTICE 08/26/23
--- OUTSIDE RECORDS SUMMARY | 2024-09-14 19:20 | XMS_ITS | Data Portability ---
Author Organization [facility] [place] Address [address] [place] [address] [place] [address] Assessment No assessment recorded. Plan of Treatment Reminders Order Date Submit Date Provider Last Modified By Organization Details Last Modified Time Details Appointments None recorded. Lab drug screen, urine 2021 [facility], [address], [place], [address], 16:07:53 Referral None recorded. Procedures None recorded. Surgeries None recorded. Imaging US, obstetric, nuchal translucenc y 2021 [email or web address] [facility], [address], [place], [address], 19:52:39 US, obstetric, [facility]vagina l [facility], [address], [place], [address], 21:09:53 Medication Orders None recorded. Patient TargetsNo [...] 97 Autho elia devine Provi ginna: Ambika León, KATIE Colle cted: 04/27 1739 Order ing [...] techn ique. Nakia nued regul ar scree tsorm is the best metho d of cance r preve ntion . If repor roxanna cytol ogic findi ng do not corre late with physi darlene and/o r histo rical findi ngs, furth er inves tigat ion is recom rohan d, as clini patience fish nted. Not Available [facility] (Lab) [address] [facility], [place], [address], 05/02/2021 22:05:38 04/27/19 22 04/27/2021 TRICH OMONA S VAGIN MARC (RRNA ) trichomonas vaginalis ribosomal RNA (rrna) Negati ve negati ve Not Available [facility] (Lab) [address] [place], [address], 05/02/2021 22:05:38 04/27/19 22 04/27/2021 CT/GC (ANDERS) , THINP REP VIAL chlamydia trachomatis, PCR Negati ve negati ve Not Available [facility] (Lab) [address] [place], [address], 05/02/2021 22:05:39 04/27/19 22 04/27/2021 CT/GC (ANDERS) , THINP REP VIAL neisseria gonorrhoeae, PCR Negati ve negati ve Not Available [facility] (Lab) [address] [place], [address], 05/02/2021 22:05:39 06/04/19 22 06/03/2021 CBC W/DIF F WBC 8.2 10'3/ uL 3.6-10 .2 Not Available [facility] (Lab) [address] , [place], [address], 06/04/2021 11:14:29 06/04/19 22 06/03/2021 CBC W/DIF F RBC 4.20 10'6/ uL (based on docume nted legal sex) 4.10-5 .30 Not Available [facility] (Lab) [address], [place], [address], 06/04/2021 11:14:29 06/04/19 22 06/03/2021 CBC W/DIF F HGB 12.7 g/dL (based on docume nted legal sex) 11.9-1 5.8 Not Available [facility] (Lab) [address] [facility], [place], [address], 06/04/2021 11:14:29 06/04/19 22 06/03/2021 CBC W/DIF F HCT 37.8 % (based on docume nted legal sex) 37.4-4 8.3 Not Available [facility] (Lab) [address], [place], [address], 06/04/2021 11:14:29 06/04/19 22 06/03/2021 CBC W/DIF F MCV 90.0 fL 82.0-9 9.0 Not Available [facility] (Lab) [address], [place], [address], 06/04/2021 11:14:29 06/04/19 22 06/03/2021 CBC W/DIF F MCH 30.0 pg 27.0-3 3.0 Not Available [facility] (Lab) [address], [place], [address], 06/04/2021 11:14:29 06/04/19 22 06/03/2021 CBC W/DIF F MCHC 34.0 g/dL 32.0-3 6.0 Not Available [facility] (Lab) [address] [facility], [place], [address], 06/04/2021 11:14:29 06/04/19 22 06/03/2021 CBC W/DIF F RDW 13.0 % 11.0-1 5.0 Not Available [facility] (Lab) [address] [facility], [place], [address], 06/04/2021 11:14:29 06/04/19 22 06/03/2021 CBC W/DIF F plt 209 10'3/ uL 150-45 0 Not Available [facility] (Lab) [address] [facility], [place], [address], 06/04/2021 11:14:29 06/04/19 22 06/03/2021 CBC W/DIF F MPV 10.7 fL 9.8-12 .7 Not Available [facility] (Lab) [address] [facility], [place], [address], 06/04/2021 11:14:29 06/04/19 22 06/03/2021 CBC W/DIF F NRBC's 0.00 % 0 Not Available [facility] (Lab) [address] [facility], [place], [address], 06/04/2021 11:14:29 06/04/19 22 06/03/2021 CBC W/DIF F absolute NRBCs 0.0 10'3/ uL 0 Not Available [facility] (Lab) [address] [facility], [place], [address], 06/04/2021 11:14:29 06/04/19 22 06/03/2021 CBC W/DIF F neutrophils 73.0 % 37.0-7 2.0 high Not Available [facility] (Lab) [address] [facility], [place], [address], 06/04/2021 11:14:29 06/04/19 22 06/03/2021 CBC W/DIF F lymphocytes 18.0 % 16.0-4 8.0 Not Available [facility] (Lab) [address] [facility], [place], [address], 06/04/2021 11:14:29 06/04/19 22 06/03/2021 CBC W/DIF F monocytes 7.0 % 4.0-14 .0 Not Available [facility] (Lab) [address] [facility], [place], [address], 06/04/2021 11:14:29 06/04/19 22 06/03/2021 CBC W/DIF F eosinophils 1.0 % 0.0-9. 0 Not Available [facility] (Lab) [address] [facility], [place], [address], 06/04/2021 11:14:29 06/04/19 22 06/03/2021 CBC W/DIF F basophils 0.0 % 0.0-2. 0 Not Available [facility] (Lab) [address] [facility], [place], [address], 06/04/2021 11:14:29 06/04/19 22 06/03/2021 CBC W/DIF F immature granulocytes 1.0 % no define d refere nce range Not Available [facility] (Lab) [address] [facility], [place], [address], 06/04/2021 11:14:29 06/04/19 22 06/03/2021 CBC W/DIF F absolute neutrophils 6.0 10'3/ uL 1.1-6. 0 Not Available [facility] (Lab) [address] [facility], [place], [address], 06/04/2021 11:14:29 06/04/19 22 06/03/2021 CBC W/DIF F absolute lymphocytes 1.5 10'3/ uL 0.7-3. 4 Not Available [facility] (Lab) [address] [facility], [place], [address], 06/04/2021 11:14:29 06/04/19 22 06/03/2021 CBC W/DIF F absolute monocytes 0.6 10'3/ uL 0.3-1. 0 Not Available [facility] (Lab) [address] [facility], [place], [address], 06/04/2021 11:14:29 06/04/19 22 06/03/2021 CBC W/DIF F absolute eosinophils 0.1 10'3/ uL 0.0-0. 6 Not Available [facility] (Lab) [address] [facility], [place], [address], 06/04/2021 11:14:29 06/04/19 22 06/03/2021 CBC W/DIF F absolute basophils 0.0 10'3/ uL 0.0-0. 1 Not Available [facility] (Lab) [address] [facility], [place], [address], 06/04/2021 11:14:29 06/04/19 22 06/03/2021 CBC W/DIF [...] resul ts are expec roxanna. Not Available [facility] (Lab) [address] [facility], [place], [address], 06/04/2021 11:14:29 06/04/19 22 06/03/2021 HEPAT ITIS B SURFA CE ANTIG EN hepatitis B surface antigen Non-re active non-re active This assay was perfo rmed using [employer] n reage nts and test kits. Value s obtai vanessa with other assay metho ds or kits canno t be used inter kat eably . Not Available [facility] (Lab) [address] [facility], [place], [address], 06/04/2021 11:14:30 06/04/19 22 06/03/2021 HEPAT ITIS C ANTIB ESRGIO SCREE N, REFLE X TO CONFI RMATI ON hepatitis C antibody Non-re active non-re active This assay was perfo rmed using [employer] reage nts and test kits. Value s obtai vanessa with other assay metho ds or kits canno t be used inter kat eably . Not Available [facility] (Lab) [address] [facility], [place], [address], 06/04/2021 11:14:30 06/04/19 22 06/03/2021 TSH, REFLE X FREE T4 TSH 1.73 uIU/m L 0.30-5 .33 Not Available [facility] (Lab) [address] [facility], [place], [address], 06/04/2021 11:14:30 06/04/19 22 06/03/2021 RUBEL LA IGG ANTIB SERGIO, QUANT rubella antibodies, IgG Reacti ve reacti ve Not Available [facility] (Lab) [address] [facility], [place], [address], 06/04/2021 11:14:31 06/04/19 22 06/03/2021 RUBEL LA IGG ANTIB SERGIO, QUANT rubella antibodies, IgG quant 34.0 IU/mL >=10 Non-r eacti ve (Non- Immun e) <10 IU/mL React german (Immu ne) > or = 10 IU/mL Not Available [facility] (Lab) [address] [facility], [place], [address], 06/04/2021 11:14:31 06/04/19 22 06/03/2021 HEMOG LOBIN [...] >8.0% Actio n sugge sted Not Available [facility] (Lab) [address], [place], [address], 06/04/2021 11:14:31 06/04/19 22 06/03/2021 HIV 1/2 ANTIG EN/AN TIBOD Y, REFLE X CONFI RMATI ON HIV Ag-Ab total quant 0.09 idx <1.00 Not Available [facility] (Lab) [address], [place], [address], 06/04/2021 11:14:32 06/04/19 22 06/03/2021 HIV 1/2 ANTIG EN/AN TIBOD Y, REFLE X CONFI RMATI ON HIV Ag-Ab total Non-re active non-re active Not Available [facility] (Lab) [address], [place], [address], 06/04/2021 11:14:32 06/04/19 22 06/03/2021 HIV 1/2 ANTIG EN/AN TIBOD Y, REFLE X CONFI RMATI ON HIV-1 antibody quant 0.08 idx <1.00 Not Available [facility] (Lab) [address], [place], [address], 06/04/2021 11:14:32 06/04/19 22 06/03/2021 HIV 1/2 ANTIG EN/AN TIBOD Y, REFLE X CONFI RMATI ON HIV-1 antibody Non-re active non-re active Not Available [facility] (Lab) [address], [place], [address], 06/04/2021 11:14:32 06/04/19 22 06/03/2021 HIV 1/2 ANTIG EN/AN TIBOD Y, REFLE X CONFI RMATI ON HIV-1 antigen (P24) quant 0.09 idx <1.00 Not Available [facility] (Lab) [address] [facility], [place], [address], 06/04/2021 11:14:32 06/04/19 22 06/03/2021 HIV 1/2 ANTIG EN/AN TIBOD Y, REFLE X CONFI RMATI ON HIV-1 antigen (P24) Non-re active non-re active Not Available [facility] (Lab) [address] [place], [address], 06/04/2021 11:14:32 06/04/19 22 06/03/2021 HIV 1/2 ANTIG EN/AN TIBOD Y, REFLE X CONFI RMATI ON HIV-2 antibody quant 0.06 idx <1.00 Not Available [facility] (Lab) [address] [place], [address], 06/04/2021 11:14:32 06/04/19 22 06/03/2021 HIV 1/2 [...] on will be perfo rmed by the [employer] HIV 1/2 Suppl ement al Assay . The perfo rmanc e of this assay has not been estab lishe d for neona zane and the assay shoul d not be used in indiv idual s young er than 2 years of age. Not Available [facility] (Lab) [address] [facility], [place], [address], 06/04/2021 11:14:32 06/04/19 22 06/03/2021 TYPE/ RH/SC REEN ABO/Rh type O POS Not Available [facility] (Lab) [address] [place], [address], 06/04/2021 11:14:32 06/04/19 22 06/03/2021 TYPE/ RH/SC REEN antibody screen NEG Not Available [facility] (Lab) [address] [facility], [place], [address], 06/04/2021 11:14:32 06/04/19 22 06/03/2021 TYPE/ RH/SC REEN exp date 2021 23:59 Not Available [facility] (Lab) [address] [facility], [place], [address], 06/04/2021 11:14:32 06/04/19 22 06/03/2021 RPR SCREE N/REF YARELY TITER /FTA RPR screen Nonrea ctive nonrea ctive Not Available [facility] (Lab) [address] [facility], [place], [address], 06/04/2021 11:14:32 06/04/19 22 06/03/2021 CULTU RE: URINE result report SEE RESULT S BELOW Test: Cultu re: Urine Speci men Sourc e: Urine - Clean Catch Speci men Type: Urine Speci men Date: 2021 3:22 PM Resul t Date: 2021 7:54 PM Resul t Statu s: Final resul t Abnor mal: No Resul ting Lab: [facility] [address] [facility] [address] Tel: CULTU RE ----- ----- ----- --- No growt h in 1 day (dete ction level of 10,00 0 colon ies / ml.) Not Available [facility] (Lab) [address] [facility], [place], [address], 06/04/2021 20:56:25 06/04/19 22 06/03/2021 drug scree n, urine Amphetamines : negati ve Not Available [facility] [address], [place], [address], 06/03/2021 16:07:40 06/04/19 22 06/03/2021 drug scree n, urine Cannabinoids : negati ve Not Available [facility] [address], [place], [address], 06/03/2021 16:07:40 06/04/19 22 06/03/2021 drug scree n, urine Opiates: negati ve Not Available [facility] [address], [place], [address], 06/03/2021 16:07:40 06/04/19 22 06/03/2021 drug scree n, urine Benzodiazepi keyona: negati ve Not Available [facility] [address], [place], [address], 06/03/2021 16:07:40 04/27/19 22 04/27/2021 US, obste tric, follo w-up No observ ation record ed. [email or web address] [address] [address], [place], [address], 05/08/2021 12:10:43 04/27/19 22 04/27/2021 US, obste tric, trans vagin al No observ ation record ed. [email or web address] [facility] [address], [place], [address], 04/27/2021 18:24:46 06/04/19 22 06/03/2021 US, obste tric, nucha l trans lucen cy No observ ation record ed. [email or web address] [facility] [address], [place], [address], 06/03/2021 18:19:36 06/04/19 22 06/03/2021 US, obste tric, nucha l trans lucen cy No observ ation record ed. [email or web address] [address], [place], [address], 06/05/2021 16:36:34 Result Notes None recorded. Problems Name Problem SNOMED Code Status Onset Date Resolution Date Notes Provider Name and Address Organization Details Recorded Time Short cervical length in pregnanc y 208908093 Completed 201504/24/2021 Cervical shorteni ng, third trimeste r;Record ed Elsewher e: No Locat ion: [facility] S ource: EHR Stripper Latex steven: N [place] ce ID: 0001 Linden lable Time: 03:15:00 PM Loly pederson [facility] 2 15:44:24 Gestatio n period, 32 weeks [id number] Completed 201504/24/2021 32 weeks gestatio n of pregnanc y;Record ed Elsewher e: No Locat ion: [facility] S ource: EHR Stripper Latex steven: N Practi ce ID: 0001 Linden lable Time: 03:15:00 PM Loly pederson [facility] 2 15:44:30 Gestatio n period, 29 weeks [id number] Completed 201504/24/2021 29 weeks gestatio n of pregnanc y;Record ed Elsewher e: No Locat ion: [facility] S ource: EHR Stripper Latex steven: N Practi ce ID: 0001 Linden lable Time: 04:00:00 PM Loly pederson, [facility] 2 15:44:08 Pregnanc y, childbir th and puerperi um finding Completed 201504/24/2021 Encounte r for supervis ion of normal first pregnanc y, third trimeste r;Record ed Elsewher e: No [facility] Late[facility] steven: N Practi ce ID: 0001 Linden lable Time: 11:00:00 AM Loly pederson, [facility] 2 15:36:19 Pregnanc y, childbir th and puerperi um finding Completed 201504/24/2021 Encntr for suprvsn of normal first preg, second trimeste r;Record ed Elsewher e: No Locat ion: Melvin kate [facility] S ource: EHR Stripper Latex steven: N Marcialti ce ID: 0001 Lind[place] lable Time: 11:45:00 AM Loly pederson, [facility] 2 15:36:17 Gestatio n period, 30 weeks [id number] Completed 201504/24/2021 30 weeks gestatio n of pregnanc y;Record ed Elsewher e: No Locat ion: Melvin kate [facility] S ource: EHR Stripper Latex steven: N Marcialti ce ID: 0001 [place] l[place] Time: 10:30:00 AM Loly pederson, [facility] 2 15:44:27 Exposure to sexually transmis sible disorder Completed 201404/24/2021 STD exposure ;Recorde d Elsewher e: No [facility]: E[facility] Stripper Latex steven: N Practi ce ID: 0001 Lind[place] lable Time: 03:15:00 PM Loly Baldev pederson [facility] 2 15:44:10 Gestatio n less than 9 weeks [id number] Completed 201504/24/2021 Less than 8 weeks gestatio n of pregnanc y;Record ed Elsewher e: No Locat ion: Melvin kate [facility] S ource: EHR Stripper Latex steven: N Practi ce ID: 0001 Linden lable Time: 09:45:00 AM Loly pederson, [facility] 2 15:36:23 Gestatio n period, 35 weeks [id number] Completed 201504/24/2021 35 weeks gestatio n of pregnanc y;Record ed Elsewher e: No Locat ion: [facility] S ource: EHR Stripper Latex steven: N Marcialti ce ID: 0001 Linden lable Time: 03:15:00 PM Loly [place] dacia, [facility] 2 15:44:33 Pelvic and perineal pain [id number] Completed 201404/24/2021 Pelvic pain;Rec orded Elsewher e: No Locat ion: [facility] S ource: EHR Stripper Latex steven: N Practi ce ID: 0001 Linden lable Time: 03:30:00 PM Loly pederson, [facility] 2 15:32:11 Gestatio n period, 28 weeks [id number] Completed 201504/24/2021 28 weeks gestatio n of pregnanc y;Record ed Elsewher e: No [facility]at [facility] S [facility]ce: EHR Stripper Latex steven: N Practi ce ID: 0001 Linden lable Time: 02:00:00 PM Loly De Paz dacia, [facility] 2 15:44:34 Pregnanc y, childbir th and puerperi um finding Completed 201504/24/2021 Encntr for suprvsn of normal first preg, first trimeste r;Record ed Elsewher e: No Locat ion: [facility] S ource: EHR Stripper Latex steven: N Practi ce ID: 0001 Linden lable Time: 09:45:00 AM Loly pederson [facility] 2 15:33:47 Gestatio n period, 33 weeks [id number] Completed 201504/24/2021 33 weeks gestatio n of pregnanc y;Record ed Elsewher e: No Locat ion: [facility] S ource: EHR Stripper Latex steven: N Practi ce ID: 0001 Linden lable Time: 04:00:00 PM Loly pederson, [facility] 2 15:44:31 Pregnanc y detectio n examinat ion Completed 201504/24/2021 Encounte r for pregnanc y test, result positive ;Recorde d Elsewher e: No Locat ion: [facility] S ource: EHR Stripper Latex steven: N Practi ce ID: 0001 Linden lable Time: 09:45:00 AM Loly pederson, [facility] 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 2 15:32:16 Removal of intraute rine device Completed 201404/24/2021 REMOVAL OF IUD;Mitchell rded Elsewher e: No Locat ion: [facility] S ource: EHR Stripper Latex steven: N Practi ce ID: 0001 Linden lable Time: 03:30:00 PM Loly pederson [facility] 2 15:44:26 Acute sinusiti s [id number] Completed 201504/24/2021 Acute sinusiti s, unspecif ied;Mitchell rded Elsewher e: No Locat ion: Melvin kate [facility] S ource: EHR Stripper Latex steven: N Practi ce ID: 0001 Linden lable Time: 11:15:00 AM Loly pederson, [facility] 2 15:32:05 Gestatio n period, 26 weeks [id number] Completed 201504/24/2021 26 weeks gestatio n of pregnanc y;Record ed Elsewher e: No [facility]: EHR Stripper Latex steven: N Practi ce ID: 0001 Linden lable Time: 01:00:00 PM Loly pederson, [facility] 2 15:44:14 Uterine size for dates discrepa ncy Completed 201504/24/2021 Uterine size-kalie e discrepa ncy, first trimeste r;Record ed Elsewher e: No [facility]: [facility] Stripper Latex steven: N Practi ce ID: 0001 Linden lable Time: 08:30:00 AM Loly pederson, [facility] 2 15:32:08 Gestatio n period, 24 weeks [id number] Completed 201504/24/2021 24 weeks gestatio n of pregnanc y;Record ed Elsewher e: No Locat ion: [facility] lavinia [facility] S ource: EHR Stripper Latex steven: N Practi ce ID: 0001 Linden lable Time: 11:15:00 AM Loly pederson, [facility] 2 15:32:13 IUCD status [id number] Completed 201404/24/2021 Presence of intraute rine contrace ptive device;R ecorded Elsewher e: No Locat ion: Melvin lavinia [facility] S ource: EHR Stripper Latex steven: N Practi ce ID: 0001 Linden lable Time: 03:20:38 PM Loly pederson [facility] 2 15:32:[address] Concept Completed 201704/24/2021 Encntr for general adult medical exam w/o abnormal findings ;Recorde d Elsewher e: No Locat ion: Melvin kate [facility] S ource: EHR Stripper Latex steven: N Practi ce ID: 0001 Linden lable Time: 10:30:00 AM Loly pederson [facility] 2 15:32:14 Lochia finding Completed 201604/24/2021 Encounte r for routine postpart um follow-u p;Record ed Elsewher e: No Locat ion: [facility] lavinia [facility] S ource: EHR Stripper Latex steven: N Marcialti ce ID: 0001 Linden lable Time: 01:00:00 PM Loly pederson [facility] 2 15:36:20 Secondar y amenorrh ea [id number] Completed 201504/24/2021 Secondar y amenorrh ea;Recor ded Elsewher e: No Locat ion: [facility] lavinia [facility] S ource: EHR Stripper Latex steven: N Practi ce ID: 0001 Linden lable Time: 09:45:00 AM Loly pederson [facility] 2 15:31:57 Procedur e Completed 201604/24/2021 Encounte r for checking , reinsert ion or removal of implanta ble subderma l contrace ptive;Re corded Elsewher e: No Locat ion: Melvin kate [facility] S ource: EHR Stripper Latex steven: N Practi ce ID: 0001 Linden lable Time: 01:45:00 PM Loly peedrson [facility] 2 15:33:45 Gestatio n period, 27 weeks [id number] Completed 10/26/ 2016 04/24/2021 27 weeks gestatio n of pregnanc y;Record ed Elsewher e: No Locat ion: [facility] S ource: EHR Stripper Latex steven: N Practi ce ID: 0001 Linden lable Time: 01:00:00 PM Loly pederson, [facility] 2 15:44:13 Gestatio n period, 9 weeks [id number] Completed 201504/24/2021 9 weeks gestatio n of pregnanc y;Record ed Elsewher e: No Locat ion: [facility] S ource: EHR Stripper Latex steven: N Practi ce ID: 0001 Linden lable Time: 08:30:00 AM Loly pederson, [facility] 2 15:44:36 Educatio n Completed 201604/24/2021 Encounte r for other general counseli ng and advice on contrace ption;Re corded Elsewher e: No Locat ion: [facility] S ource: EHR Stripper Latex steven: N Practi ce ID: 0001 Linden lable Time: 01:00:00 PM Loly pederson, [facility] 2 15:32:18 Placenta previa [id number] Completed 201504/24/2021 Placenta previa specifie d as w/o hemor, second trimeste r;Record ed Elsewher e: No Locat ion: [facility] S ource: EHR Stripper Latex steven: N Practi ce ID: 0001 Linden lable Time: 11:15:00 AM Loly pederson, [facility] 2 15:36:22 Normal pregnanc y in multigra lia [id number] 4106 Completed 201504/24/2021 Encounte r for suprvsn of normal pregnanc y, third trimeste r;Practi ce ID: 0001 Loly pederson, [facility] 2 15:44:11 prematur e rupture of membrane s with onset of labor within 24 hours of rupture [id number] Completed 201504/24/2021 Pretrm izabel ROM, onset labor w/n 24 hours of rupt, third tri;Prac adam ID: 0001 Loly pederson, [facility] 2 15:31:56 Single live from singleto n pregnanc y [id number] Completed 201504/24/2021 Single live ;Pr actice ID: 0001 Loly De Paz null, [facility] 2 15:32:07 Gestatio n period, 36 weeks [id number] Completed 201504/24/2021 36 weeks gestatio n of pregnanc y;Practi ce ID: 0001 Loly pederson, [facility] 2 15:44:16 Pregnanc y [id number] Completed 202110/26/2021 iX Sloan null, [facility] 2 15:41:57 History of SARS-CoV -2 [id number] Completed around time of concepti on. minimal risk. taking ASA Xi S[facility] hl null, [facility] 2 15:41:51 Past pregnanc y history of prematur e delivery [id number] Completed 36.3w. offered prince, pt to decide at 16week CL. Xi Sloan hl null, [facility] 2 15:41:51 Mixed anxiety and depressi ve disorder 003741584 Completed on celexa, will continue through preg. Xi Sloan hl null, [facility] 2 15:41:51 Advanced maternal age 568582815 Completed NIPT Xi Sloan hl null, [facility] 2 15:41:51 Short cervical length in pregnanc y 323976563 Completed G1- was on crinone Xi Martinnstie hl null, [facility] 2 15:41:51 Genital herpes simplex 94322263 Completed valtrex AT 34 WEEKS (h/o PTD) Xi Martinnstie hl null, [facility] 2 15:41:51 Short cervical length in pregnanc y 117104667 Active G1- was on crinone Xi Martinnstie hl null, [facility] 2 15:41:51 Genital herpes simplex 37855854 Active valtrex AT 34 WEEKS (h/o PTD) Xi Martinnstie hl null, [facility] 2 15:41:51 History of SARS-CoV -2 [id number] 6566192 Active around time of concepti on. minimal risk. taking ASA Xi Martinnstie hl null, [facility] 2 15:41:51 Past pregnanc y history of prematur e delivery 003084960 Active 36.3w. offered crinone, pt to decide at 16week CL. Xi Romotie hl null, [facility] 2 15:41:51 Advanced maternal age 082978722 Active NIPT Xi Romotie hl null, [facility] 2 15:41:51 Mixed anxiety and depressi ve disorder 145704045 Active on celexa, will continue through preg. Xi Martinnstie hl null, [facility] 2 15:41:51 Problem Notes None recorded. Procedures Surgical History Date Name Laterality Status Provider Name and Address Organization Details Recorded Time 0 Control Implant Removal completed Sandy Mendiola, TOM[facility]S-[facility] [address], [place], [address], [place] [facility] 10/09/2019 11:24:31 8 Date of Last Pap Smear completed Loly De Paz [facility] 04/24/2021 15:45:48 Imaging Results None recorded. [...] Not available Not available Not available 10/09/2019 [id number] SNOMED Rhina Riddle dacia, [facility] 0 10:34:16 Medications Name Sig Start Date Stop Date Status Note LastModified by Organization Details LastModified Time Mirena 21 mcg/24 hr (up to 8 years) 52 mg intrauter ine device 08/14 completed Prescrib ed Elsewher e: Yes Loca tion: [facility] odify By: iwona Encounte r DateTime : 01/24/20 15 03:30:00 PM Not Available Not Available Not Available Augmentin 875 mg-125 mg tablet take 1 tablet by oral route every 12 hours 09/06 completed Prescrib ed Elsewher e: No Locat ion: [facility] odify By: iwona Encounte r DateTime : 10/17/19 16 11:15:00 AM Not Available Not Available Not Available acyclovir 400 mg tablet take 1 tablet by oral route 2 times every day 09/06 completed Prescrib ed Elsewher e: No Locat ion: [facility] odify By: iwona Encounte r DateTime : [...] e: No Locat ion: [facility] odify By: tamara schilling DateTime : 01/29/20 15 10:10:11 AM Not Available Not Available Not Available Flagyl 500 mg tablet take 1 tablet by oral route 2 times every day 08/14 completed Prescrib ed Elsewher e: No Locat ion: [facility] odify By: iwona Tamayo r DateTime : 02/11/20 15 10:43:48 AM Not Available Not Available Not Available Valtrex 500 mg tablet take 1 tablet by oral route 2 times every day for 10 days 03/10 completed Prescrib ed Elsewher e: No Locat ion: [facility] odify By: [email or web address] Tamayo r DateTime : 03/01/20 16 05:15:00 PM Not Available Not Available Not Available aspirin active Not Available Not Avail able Not Available active Not Available Not Avai lable Not Available Endometri n 100 mg vaginal insert insert 1 vaginal insert by vaginal route every night 09/06 completed Prescrib ed Elsewher e: No Locat ion: [facility] odify By: iwona Tamayo r DateTime : 02/16/20 16 12:52:46 PM Not Available Not Available Not Available [employer]-PNV-DH A 28 mg iron-1 mg-200 mg capsule take 1 capsule by oral route every day 09/06 completed Prescrib ed Elsewher e: No Locat ion: [facility] odify By: [email or web address] Tamayo r DateTime : 08/15/19 16 09:45:00 AM Not Available Not Available Not Available Vitals Date Recorded Body height Body mass index (BMI) Body weight Systolic And Diastolic Systolic And Diastolic Provider Name and Address Organization Details Last Updated DateTime 04/27/2021 167.64 cm 29.5 kg/m2 48856.4 g 150/83 mm[Hg] 121/84 mm[Hg] Loly De Paz [facility] 2 15:57:37 Date Recorded Body height Body mass index (BMI) Body weight Systolic And Diastolic Provider Name and Address Organization Details Last Updated DateTime 06/03/2021 167.64 cm 31.3 kg/m2 02652.919 78 g 127/84 mm[Hg] Carey Rosariokrystin [facility] 06/03/2021 16:06:05 Date Recorded Body height Body mass index (BMI) Body weight Systolic And Diastolic Provider Name and Address Organization Details Last Updated DateTime 10/09/2019 1981.2 cm 0.2 kg/m2 04464.88 g 109/73 mm[Hg] Rhina Ridlde [facility] 10/09/2019 10:42:34 Social History None recorded. [...] SNOMED-CT Code Diagnosis ICD10 Code Diagnosis Note [id number] [facility] [address] [address] 10/09/2019 10:26:31 10/09/2019 11:31:31 Removal of subcutaneous contraceptive 967697492 Z30.46 Removal site was cleansed with betadine epv6ifuc lidocaine used for anesthesia . Device was removed in normal fashion without difficulty . Steristips and pressure bandage placed. advised PNV daily [id number] Ambika Garcia CNM [facility] [address] [address] 04/27/2021 15:01:18 04/28/2021 17:34:09 Gynecologic examination 42931140 Z01.419 Z11.51 test positive 493442129 Z32.01 Risk factors addressed: Tobacco Cessation, Safe [...] annual well woman examinatio n and address [facility] . [id number] Rajesh Hernandez MD [facility] [address] [address] 04/27/2021 15:41:00 04/27/2021 16:33:25 Uterine size for dates discrepancy 180981624 O26.849 [id number] Mel Rucker MD [facility] [address] [address] 06/03/2021 15:25:49 06/03/2021 16:08:48 screening 031866685 Z36.82 [id number] Mel Rucker MD [facility] [address] [address] 06/03/2021 15:26:19 06/04/2021 15:34:26 Routine care 895079594 Z34.91 Advanced m aternal age 064864686 O09.521 Genital he rpes simplex 27096970 A60.9 Past pregn sindy history of premature delivery 290754184 Z87.51 History of SARS-CoV-2 29 34526435 52178345 Z86.16 Mixed anxi ety and depressive disorder 541464109 F41.8 Short cerv ical length in 260010003 O26.879 Health Concerns Section Related Observation LastModified by Organization Detai ls LastModified Time None Recorded Concern Status LastModified by Organization Details LastModified Time None Recorded Advance Directives Directive None Recorded Payers Insurance Date Sequence Insurance Name Policy Number Policy [place] Covered Member ID [place] Member ID Guarantor Name 12/22/2021 1 R [id number] Brandan Devries [id number] Joann castle 04/08/2022 1 [employer] Brandan Devries [id number] Joann castle 04/08/2022 1 [facility] BENEFIT PLAN MANAGEMENT - EMPERATRIZ Devries [id number] Joann castle Notes Date Note Type Note Provider Name and Address Organization Details Recorded Time 0 text/html Patient is here for nexplanon removal. Wants to try to achieve . Sandy Mendiola, TOM[facility]S- [address], [place], [address], [facility] 10/09/2019 11:25:43 2 text/html Generic HPI TemplateReported bypatient.Notes: term vaginal deliveryEDC 10-2 by ultrasoundHistory of thinning cervix. Was on progesterone with 1st . Ambika pederson, [facility] 04/27/2021 18:56:41 OBGyn Episode Ob Episode Information Episode Created Date Number of Fetuses Patient Bloodtype Patient rh Status Prepregnancy Weight lbs Domestic Partner Domestic Partner Phone Father Name Older Adult Social Work Specialist Status 10/09/19 20 1 CLOSED Fetus Data [...] Domestic Partner Domestic Partner Phone Father Name Older Adult Social Work Specialist Status 06/04/19 22 1 183 CLOSED Fetus Data First Name Last Name Admitted to NICU Weight (g) Sex Living Outcome Pediatric Complications Fetus ID Race Codes Race Delivery Type [id number] Problems Problem Notes NIPT NL XY Problem Name Start Date End Date Resolution Snomed Code Not e History of SARS-CoV-2 [id number] around ti me of conception. minimal risk. taking ASA Past history of premature delivery 474970550 36.3w. of fered dedenone, pt to decide at 16week CL. Mixed anxiety and depressive disorder 206364553 on celex a, will continue through preg. Advanced maternal age 071638677 NIPT Short cervical length in 657419820 G1- was on crinone Genital herpes simplex 69896072 valtrex AT 34 WEEKS (h/o PTD) Naeem [...] Date Ultra Sound Latest Days Gestation 0 [id number] 06/03/2021 12/14/19 22 0 Pre-melvin Flowsheet Flowsheet Date 06/03/2021 Teran Score Blood Edema Fundus Height Fundus Units Glucose Ketones Leukocytes Nitrite Labor Signs Protein Cervic Dilation Cervic Effacement Cervic Station neg none none trace Type Weight in lbs Pre/Post Dialysis Refused Weight 194.417556117399 BP Diastolic BP Location Tested BP Systolic [...] Estim ated Date of Delivery true Thalassemia (Occitan, Nepalese, Mediterranean, Or Background): MCV < 80 false Neural Tube Defect (Meningomyelocele, Spina Bifi da, Or Anencephaly) false Congenital Heart Defect false Down Syndrome false Sinan-Sachs (eg, Anglican, Cajun, Burmese-Elmore) f alse Keren Disease false Sickle Cell Disease Or Trait () false Hemophilia Or Other Blood Disorders false Muscular Dystrophy false Cystic Fibrosis false Kearny's Chorea false Intellectual Disability/Autism false If Yes, [...]
[2024-09-14 19:26] VITALS: BP 111/72; PULSE 94; RESP 17; TEMP 36.5; O2SAT 97
--- NOTE | 2024-09-14 19:55 | ED_ITS ---
HPI - General Adult General Chief complaint: Unspecified Stated complaint: TOLD TO COME IN FOR ULTRASOUND Time Seen by Provider: 09/14/24 19:28 Source: patient Mode of arrival: ambulatory Limitations: no limitations History of Present Illness HPI narrative: This is a 38 year old female that presents to the ER for intermittent right lower quadrant pain. Ongoing over the last couple of weeks. She has seen her mobile engineer for this and was seen in the ER last night. She was called about her imaging results today and told to come to the ER for an ultrasound. She is not currently having any pain. Related Data Home Medications ?Medication ?Instructions ?Recorded ?Confirmed ?Last Taken ?Type atomoxetine 10 mg capsule 20 mg PO ONCE 08/30/24 08/30/24 Unknown History levonorgestrel (Mirena) 1 device intrauterine ONCE 08/30/24 08/30/24 01/12/22 13:52 History lumateperone 21 mg capsule 21 mg PO DAILY 08/30/24 08/30/24 Unknown History (Caplyta) sertraline 50 mg tablet (Zoloft) 50 mg PO DAILY 08/30/24 08/30/24 Unknown History Allergies Allergy/AdvReac Type Severity Reaction Status Date / Time Sulfa (Sulfonamide Allergy Unknown unknown Verified 09/14/24 19:29 Antibiotics) sulfanilamide Allergy Unknown unknown Verified 09/14/24 19:29 Review of Systems Review of Systems: All systems reviewed & are unremarkable except as noted in HPI and below PMFSH Past Medical History Medical History Anxiety Tuberculosis NON ACTIVE Asthma Surgical History Surgical History [place] teeth removed Family History Family History Father Family history of obesity Sibling Family history of mental disorder Mother Family history of osteoarthritis Grandparent Carcinoma of colon Family history of lung cancer Diabetes mellitus Social History Social History Smoking packs per day: 0.5 Smoking cigarettes per day: 10.0 Years smoked: 10 Smoking pack-years: 5.00 Smoking status: Former smoker Second hand tobacco smoke exposure: No Smoking end date: 03/14/14 Alcohol intake: never Substance use: never Lack of Transportation: No Lack of Food: Never True Current Housing: I Have Housing Concerned About Future Housing: No Difficulty Paying Gas/Electric Bills: No Difficulty Paying for Meds: No Currently Unemployed: No Education: Trade/Vocational Certificate Difficulty w/ Childcare or Family Care: No Spiritual care concerns: No Exam Narrative: GENERAL: Well-appearing, well-nourished, and in no acute distress. HEAD: Normocephalic, atraumatic. EYES: EOMI. CHEST: Clear to auscultation. No respiratory distress. No wheezes rales or rhonchi HEART: Regular rate and rhythm. No murmur heard. Normal peripheral pulses. ABDOMEN: Soft, nontender, nondistended, normal active bowel sounds. EXTREMITIES: Normal range of motion. No edema. SKIN: Warm, dry, no rash. NEURO: No focal deficits. Alert and oriented x3. PSYCH: Normal mood and affect Course Vital Signs Vital signs: Vital Signs Temperature 97.7 F 09/14/24 19:26 Pulse Rate 94 09/14/24 19:26 Respiratory Rate 17 09/14/24 19:26 Blood Pressure 111/72 09/14/24 19:26 Pulse Oximetry 97 09/14/24 19:26 Oxygen Delivery Room Air 09/14/24 19:26 Temperature 97.7 F 09/14/24 19:26 Pulse Rate 94 09/14/24 19:26 Respiratory Rate 17 09/14/24 19:26 Blood Pressure 111/72 09/14/24 19:26 Pulse Oximetry 97 09/14/24 19:26 Oxygen Delivery Room Air 09/14/24 19:26 Medical Decision Making MDM Narrative Medical decision making narrative: Patient presents to the ER for intermittent right lower quadrant pain. Ongoing over the last couple of weeks. She has seen her mobile engineer for this and was seen in the ER last night. She was called about her imaging results today and told to come to the ER for an ultrasound. She is not currently having any pain. Her abdomen is soft and nontender. Her vital signs are normal. CT was showing possible abnormal position of her IUD. Unfortunately we do not have ultrasound at this time. I do not believe it is necessary at this time as her ultrasound on 09/07 showed that the IUD was in good position. She was instructed to follow-up with her mobile engineer for further management of her IUD. Vital Signs Vital Signs: Vital Signs Temperature 97.7 F 09/14/24 19:26 Pulse Rate 94 09/14/24 19:26 Respiratory Rate 17 09/14/24 19:26 Blood Pressure 111/72 09/14/24 19:26 Pulse Oximetry 97 09/14/24 19:26 Oxygen Delivery Room Air 09/14/24 19:26 Temperature 97.7 F 09/14/24 19:26 Pulse Rate 94 09/14/24 19:26 Respiratory Rate 17 09/14/24 19:26 Blood Pressure 111/72 09/14/24 19:26 Pulse Oximetry 97 09/14/24 19:26 Oxygen Delivery Room Air 09/14/24 19:26 Critical Care Time Critical Care Time Critical Care Time: No Discharge Plan Discharge Clinical Impression: Intermittent right lower quadrant abdominal pain Patient Disposition: Home Condition: Stable Instructions: Abdominal Pain (ED) Additional Instructions: Return to the ER if you experience fever, abdominal pain with nausea and vomiting, you are unable to keep down liquids or solids, pain or burning with urination, blood in the urine or any other symptoms that are concerning to you Tylenol or Ibuprofen as needed for pain Follow up with your mobile engineer for further management of your IUD. It was shown to be in an abnormal position on your CT scan Patient Language: Kinyarwanda Prescriptions: No Action sertraline [Zoloft] 50 mg tablet 50 mg PO DAILY Caplyta 21 mg capsule 21 mg PO DAILY atomoxetine 10 mg capsule 20 mg PO ONCE Mirena 21 mcg/24hr (up to 8 yrs) 52 mg intrauterine device 1 device intrauterine ONCE Rx Instructions: as a single dose Follow-up/Referrals: León,DO David [Primary Care Provider] -
--- OUTSIDE RECORDS SUMMARY | 2024-09-14 20:09 | XMS_ITS | Clinical Summary ---
Author Organization [facility] Address [address] [place] [address] Care Team Providers Care Avionics Systems Engineer Name Role Phone Odell Maddox DO Primary Care Provider [phone] Source Comments [facility],non-owned Affiliates and Associated Physician Practices is amultiple site organization consisting of ambulatory clinics and hospital sitesin [place], [place], [place] and [place]. This disclosure is being madepursuant to the Care Everywhere program and may not contain all information available regarding this patient. Last updated 17.[facility] Allergies Active Allergy Reactions Criticality Noted Date [...] topic Insurance CIGNA CIGNA CIGNA Care Teams Avionics Systems Engineer Relationship Specialty Start Date End Date Odell Maddox DO [id number] [facility] [address] [place] [address] PCP - General 11/12/21
== END 2024-09-14 20:12 | disposition home or self-care (01) ==
PROVIDERS: Emergency Provider Physician Assistant; PCP Student in an Organized Health Care Education/Training Program
DX: R10.31 Right lower quadrant pain (principal); J45.909 Unspecified asthma, uncomplicated; F41.9 Anxiety disorder, unspecified; Z87.891 Personal history of nicotine dependence
CPT/HCPCS: 99281

== ENCOUNTER 2024-12-20 11:51 | Outpatient (CLI) | payer OTHER, SELFPAY ==
[2024-12-20 12:56] LABS: Alanine Aminotransferase 16 U/L (6-35); Albumin Level 4.6 g/dL (3.5-5.1); Alkaline Phosphatase 70 U/L (38-126); Aspartate Amino Transferase 26 U/L (14-36); Bilirubin,Total 0.8 mg/dL (0.2-1.3); Total Protein 7.8 g/dL (6.3-8.2)
[2024-12-20 12:59] LABS: Iron 62 ug/dL (37-170)
[2024-12-20 13:09] LABS: Percent Iron Saturation 21 % (20-50)
[2024-12-20 13:32] LABS: Hepatitis B Surface Antigen Negative (Negative)
[2024-12-20 13:37] LABS: HAV RESULT Negative (Negative); Hepatitis B Core IgM Result Negative (Negative)
[2024-12-20 13:40] LABS: Ferritin 63.70 ng/mL (6.24-137)
[2024-12-21 11:08] LABS: GGT 18 IU/L (0-60)
== END 2024-12-20 11:52 | disposition home or self-care (01) ==
LOC: ANHLAB 11:52
PROVIDERS: PCP Student in an Organized Health Care Education/Training Program; Visit Provider Nurse Practitioner Family
DX: K76.0 Fatty (change of) liver, not elsewhere classified (principal); R10.12 Left upper quadrant pain
CPT/HCPCS: 36415; 80074; 80076; 82390; 82728; 82977; 83540; 83550; 86015; 86381